=== PATIENT | male | born 1985 | race Caucasian/White ===

== ENCOUNTER 2024-11-03 08:23 | Outpatient (AMB) | payer OTHER, SELFPAY ==
--- OUTSIDE RECORDS SUMMARY | 2024-11-03 08:28 | XMS_ITS | Referral Summary ---
Author Organization [facility] Address [address] [place] [address] Phone Care Team Providers Care Crm Specialist Name Role Phone Janessa Waters MD Unavailable Social History Tobacco Use Types Packs/Day Years Used Date Smoking Tobacco: Never Assessed Sex and Gender Information Value Date Recorded Sex Assigned at Male 10/11/2024 3:43 PM EDT Legal Sex Male 12:30 PM EDT Gender Identity Male 10/11/2024 3:43 PM EDT Sexual Orientation Straight 10/11/2024 3: 43 PM EDT Plan of Treatment Upcoming Encounters Date Type Department Care Team (Late st Contact Info) Description 01/19/2025 1:00 PM EDT Office Visit Division of Vascular and Endovascular Surgery [address] [facility] [address] [place] [phone] Javid Jerome MD [address] [place] [address] Care Teams Crm Specialist Relationship Specialty Start Date End Date Janessa Waters MD [address] [place] [phone] PCP - Insurance 08/10/24
--- NOTE | 2024-11-03 13:13 | MHC.OFFVISWM ---
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* Observation Assistant Required: Yes Observation Assistant Services: Observation Assistant Present Information Interpreted: clinical only Allergies No Known Allergies Allergy (Verified 11/03/24 13:14) Medication List - Last Reconciled 11/03/24 by Papi Vences MD aspirin (Adult Aspirin Regimen) 81 mg PO DAILY irbesartan 300 mg PO DAILY HPI HPI [facility] *THERAPEUTIC SUPPORT STAFF*: Details: Start time: 1pm, End time: 2pm ?I spent 55 minutes speaking with the patient on the phone plus an additional 5 minutes reviewing and updating records for a total of 60 minutes HPI Comments Details: Previous weight loss efforts: Self diets and exercise Wakes up/Sleeps: 1.30am to 7am-9am Breakfast: 11am (eggs) Lunch: 5pm (beef with rice) Dinner: 12am (ham or eggs) Snacks: Croissant occasionally at 2pm Exercise: no home equipment, Gym membership Beverages: Coffee (1-2 cup/d), prepackaged tea: a few times per week, Soda: rarely, Juice: self made juice from watermelon, ETOH: 3 beers per week PFSH Medical History (Updated 11/03/24 @ 13:18 by Papi Vences MD) DJD (degenerative joint disease) Hypertension Morbid obesity Surgical History (Updated 08/25/24 @ 14:28 by Val Gerber CMA) No history of previous surgery Family History (Updated 08/25/24 @ 14:31 by Val Gerber CMA) Mother Diabetes Hypertension Colon cancer Father Hypertension Social History (Updated 08/25/24 @ 14:30 by Val Gerber CMA) Alcohol intake: current Alcohol intake frequency: holidays/special occasions only Patient Tobacco Use Status: Former Tobacco user Telehealth Telehealth Telehealth Platform: Telephone Location of provider rendering services: practice address Location of patient: address on file Patient Identification confirmed using: Name, : Yes Telehealth method: voice only Patient verbally consented to treatment: Yes Patient verbally consented to billing insurance company: Yes Patient informed of any privacy concerns related to visit: Yes Minutes spent on Phone/Video with Pt.: 60 Assessment & Plan Assessment & Plan (1) Morbid obesity: Code(s): E66.01 - Morbid (severe) obesity due to excess calories Category: Medical Plan: 1.? Plan for lap sleeve gastrectomy. If diaphragmatic or ventral hernias are present at time of surgery, these will be repaired laparoscopically as well. I emphasized the importance of close follow-up, adherence to instructions and good communication. The surgery does not replace the need to change your lifestlyle which is the cause of the obesity problem. The surgery provides the motivation to try again to change your lifestyle, it reduces the appetite and make the transition to a better lifestyle easier and doubles the amount of weight you would lose compared to doing the lifestyle change without the surgery. You will need to be on a liquid diet with protein shakes for 2 weeks before surgery to maximize weight loss and boost your nutritional status to recover better from surgery and also for the first two weeks after surgery to let the stomach heal before we introduce other foods. After the first 2 weeks we will introduce protein bars and soft foods like scrambled eggs, cottage cheese and yogurt and after the 6th week will introduce meat, fish and cooked vegetables in small amounts. Over time you should be able to eat everything in small amounts. Side effects like nausea, vomiting, heartburn or abdominal pain are not common in the practice unless you are not following in the practice. This operation requires lifetime commitment to following in our practice and communication with me. You will much less weight and experience side effects if you don?t communicate or not following in the practice. Complications are rare and in our practice is about 1/10 of the national average. However, you can develop bleeding that may require transfusion (hasn?t happened for year in the practice), you may from complications (we did not have any deaths in the practice) and infections. Infections are usually a result of breakdown in communication or not understanding or following directions correctly. They are difficult to treat, they can happen during the first 6 weeks, they may require to be in the hospital for weeks or even months, not being able to eat by mouth and you may have drains and surgeries to try and correct the issue. Other risks and complications include possible conversion to an open procedure, leaks, small bowel obstruction, blood clots, cardiac, or pulmonary complications, as dentistry professor complications such as ulcers, insufficient weight loss and vitamin deficiencies. 2.?Nutritional counseling. Start with one premade PREMIER protein (buy at [employer] or [employer]) shake (8oz of Premier NOT the whole bottle) at 9am-11am, one protein bar (Fit Crunch protein bar, buy at [employer], or [employer]) at 11am-1pm, another premade PREMIER protein shake (8oz of Premier and NOT the entire bottle) at 2pm-4pm, dinner at 5pm (10 forks of protein and 10 forks of salad/vegetables), another Fit Crunch protein bar at 7pm-9pm, another [employer] protein bar at 10pm to midnight. So you do 2 protein shakes, 3 protein bars and one meal per day. Meal to include lean meat (beef, fish, pork, turkey, chicken), or kazakh yogurt, or egg whites, or beans with a salad with olive oil and fruits (berries, pears, apples, kiwi). Avoid salt, breads, potatoes, rice, pasta, desserts. 3. Each shake would be drunk slowly, like coffee in a period of 2 hours. 4. Cut each bar in 4 pieces and eat each piece in 30min ?to make each bar last 2 hours. 5. I emphasized the importance of measuring accurately the food portion and measure it when serving the food in plate 6. The meal portions include 10 full-size forks of meat and 10 full-size forks of salad. You always eat the meat portion but you can replace up to 5 forks for salad/vegetables with rice, potatoes or pasta, or a fruit ?if you like. The less you do it the better weight loss will be. 7. One full-size fork is what it can be scooped on the fork without falling aside and not what can be bit with the fork. Use regular forks like those you find in a typical restaurant. 8.? Please buy the body composition scale we discussed and send me weight measurements as soon as possible and then once a week. Always include your diet and exercise plan. 9. Start treadmill with an incline of 0.0 and speed of 3.0. Increase incline by 1 every 3 min to a max incline of 6.0, stay 3min at 6.0 and then return to 0.0 and repeat same steps until calorie goal is met. Goal is to burn 2000 calories per week on exercise, which means either 300 calories daily, or 400 calories 5 days per week, or 500 calories 4 days per week, or 650 calories 3 days per week. 10. Alternatively start stationary bike at a resistance level of 0.0 Increase level by 1.0 every 3 min to a max level of 6.0. Stay at this level for 3 min and then return to level 0.0 and repeat same steps until 300 calories are burned. Velocity target is 12mph and heart rate is 145 bpm. Goal is to burn 2000 calories per week on exercise 11. The best choice would be to purchase a stationary bike, elliptical or treadmill at home that can track calories. Let me know if you do so I can give you an exercise plan. 12. Goal is to lose at least 1.5-2lbs per week 13. Goal to lose 10% of your weight before surgery, which is about 30lbs. Ultimate weight goal: 284lbs before surgery 14. Please follow the diet plan exactly without any change. If you don't like something about the plan or you feel hungry you need to communicate with me so I can help you revise the plan. You should not change the plan yourself 15. To be scheduled for EGD to assess the stomach's anatomy. The possibility of biopsies was discussed. Patient needs to avoid use of NSAIDs and aspirin for 1 week prior to EGD. You must be on liquids only the day before your endoscopy. Risks of perforation and bleeding was discussed with the patient. This will be an outpatient procedure with IV sedation. Orders: Orders Complete Blood Count Auto Diff Today E66.01 - Morbid (severe) obesity due to excess calories, I10 - Essential (primary) hypertension IRON PROFILE Today E66.01 - Morbid (severe) obesity due to excess calories, I10 - Essential (primary) hypertension TSH reflex Free T4 Today E66.01 - Morbid (severe) obesity due to excess calories, I10 - Essential (primary) hypertension Vitamin D 25-OH Total Today E66.01 - Morbid (severe) obesity due to excess calories, I10 - Essential (primary) hypertension US abdomen comp w elastography Today E66.01 - Morbid (severe) obesity due to excess calories, I10 - Essential (primary) hypertension XR chest 2V Today E66.01 - Morbid (severe) obesity due to excess calories, I10 - Essential (primary) hypertension ECG 12 lead EKG Today E66.01 - Morbid (severe) obesity due to excess calories, I10 - Essential (primary) hypertension Insulin Today E66.01 - Morbid (severe) obesity due to excess calories, I10 - Essential (primary) hypertension Hemoglobin A1c Today E66.01 - Morbid (severe) obesity due to excess calories, I10 - Essential (primary) hypertension H Pylori Breath Test Today E66.01 - Morbid (severe) obesity due to excess calories, I10 - Essential (primary) hypertension Lipid Panel Today E66.01 - Morbid (severe) obesity due to excess calories, I10 - Essential (primary) hypertension Comprehensive Met. Panel Today E66.01 - Morbid (severe) obesity due to excess calories, I10 - Essential (primary) hypertension Vitamin B12 and Folate Today E66.01 - Morbid (severe) obesity due to excess calories, I10 - Essential (primary) hypertension Zinc Today E66.01 - Morbid (severe) obesity due to excess calories, I10 - Essential (primary) hypertension C Reactive Protein Today E66.01 - Morbid (severe) obesity due to excess calories, I10 - Essential (primary) hypertension Vitamin B1 Today E66.01 - Morbid (severe) obesity due to excess calories, I10 - Essential (primary) hypertension Vitamin A Today E66.01 - Morbid (severe) obesity due to excess calories, I10 - Essential (primary) hypertension Ferritin Today E66.01 - Morbid (severe) obesity due to excess calories, I10 - Essential (primary) hypertension FL upper GI w air Today E66.01 - Morbid (severe) obesity due to excess calories, I10 - Essential (primary) hypertension Referrals Behavioral Health Referral E66.01 - Morbid (severe) obesity due to excess calories, I10 - Essential (primary) hypertension Nutrition/Dietitian Referral E66.01 - Morbid (severe) obesity due to excess calories, I10 - Essential (primary) hypertension
[2024-11-03 13:38] VITALS: BMI 47.7
== END 2024-11-03 14:00 | disposition home or self-care (01) ==
LOC: HO.HBS 08:23
PROVIDERS: Visit Provider Surgery
DX: E66.01 Morbid (severe) obesity due to excess calories (principal); Z68.42 Body mass index [BMI] 45.0-49.9, adult
CPT/HCPCS: 98011

== ENCOUNTER 2024-11-12 09:50 | Day surgery (SDC) | payer OTHER, SELFPAY ==
--- NOTE | 2024-11-11 12:30 | HO.ANESPROP2 ---
Documented by User: Marycarmen Guzmán NP 11/11/24 12:31 HPI - Anesthesia Eval Consult details Narrative: 39yo M for Upper Endoscopy [facility] Active Problems Active Problems: All Active Problems DJD (degenerative joint disease) (Acute) Hypertension (Acute) Morbid obesity (Acute) Past Medical History Medical History DJD (degenerative joint disease) Hypertension Morbid obesity Family History Family History (Updated 08/25/24 @ 14:31 by Val Gerber CMA) Mother Diabetes Hypertension Colon cancer Father Hypertension Surgical History Surgical History No history of previous surgery Social History Social History (Updated 08/25/24 @ 14:30 by Val Gerber CMA) Are you a primary healthcare associate to a significant other at home: No Do you presently have visiting nurse or other home services: No Alcohol intake: current Alcohol intake frequency: holidays/special occasions only Patient Tobacco Use Status: Current everyday Tobacco user Tobacco use type: Cigarette Cigarettes Per Day: 2 Use of substances other than those prescribed or required for medical reasons: No Have you been hit, kicked, punched, or otherwise hurt by someone within the past year? If so, by whom?: No Are you DNR?: No Advance Directives: No Advance Directives Information Provided: Yes Poor oral hygiene: No Meds Allergies Allergy/AdvReac Type Severity Reaction Status Date / Time No Known Allergies Allergy Verified 11/12/24 10:29 Home Medications ?Medication ?Instructions ?Recorded ?Confirmed ?Last Taken ?Type aspirin 81 mg tablet,delayed 81 mg PO DAILY 08/25/24 11/12/24 11/04/24 History release (Adult Aspirin Regimen) irbesartan 300 mg tablet 300 mg PO DAILY 08/25/24 11/12/24 Unknown History Assessment and Plan Assessment Anesthesia Assessment: Chart Reviewed Documented by User: Eric Hays MD 11/12/24 11:17 [facility] Past Medical History Medical History DJD (degenerative joint disease) Hypertension Morbid obesity Family History Family History (Updated 08/25/24 @ 14:31 by Val Gerber CMA) Mother Diabetes Hypertension Colon cancer Father Hypertension Family history of problems with anesthesia: No Surgical History Surgical History No history of previous surgery History of Problems with Anesthesia: No Social History Social History (Updated 08/25/24 @ 14:30 by Val Gerber CMA) Are you a primary healthcare associate to a significant other at home: No Do you presently have visiting nurse or other home services: No Alcohol intake: current Alcohol intake frequency: holidays/special occasions only Patient Tobacco Use Status: Current everyday Tobacco user Tobacco use type: Cigarette Cigarettes Per Day: 2 Use of substances other than those prescribed or required for medical reasons: No Have you been hit, kicked, punched, or otherwise hurt by someone within the past year? If so, by whom?: No Are you DNR?: No Advance Directives: No Advance Directives Information Provided: Yes Poor oral hygiene: No Meds Allergies Allergy/AdvReac Type Severity Reaction Status Date / Time No Known Allergies Allergy Verified 11/12/24 10:29 Home Medications ?Medication ?Instructions ?Recorded ?Confirmed ?Last Taken ?Type aspirin 81 mg tablet,delayed 81 mg PO DAILY 08/25/24 11/12/24 11/04/24 History release (Adult Aspirin Regimen) irbesartan 300 mg tablet 300 mg PO DAILY 08/25/24 11/12/24 Unknown History Exam Airway Mallampati Class: IV TM Dist: >3cm Neck ROM: Full Assessment and Plan Assessment Anesthesia Assessment: Anesthesia Plan Discussed Final Anesthetic Review Family History of Problems with Anesthesia: No History of Problems with Anesthesia: No NPO: Yes ASA Class: III Final Preanesthetic Review: No Changes in Pt Med Stat, Meds/Allgs Chart Reviewed, Consent Obtained/Reviewed and Anes Risks/Benef Reviewed Patient Risk: Intermediate Procedure Risk: Low Anesthetic Plan Anesthetic Plan: TIVA Disposition: Standard PACU
--- OUTSIDE RECORDS SUMMARY | 2024-11-11 13:18 | XMS_ITS | Referral Summary ---
Author Organization [facility] Address [address] [place] [address] Phone Care Team Providers Care Continuous Churn Buttermaker Name Role Phone Janessa Waters MD Unavailable [...] Vascular and Endovascular Surgery [address] [facility] [address] [place] [phone] Javid Jerome MD [address] [place] [address] Care Teams Continuous Churn Buttermaker Relationship Specialty Start Date End Date Janessa Waters MD [address] [place] [phone] PCP - Insurance 08/10/24
--- OUTSIDE RECORDS SUMMARY | 2024-11-11 13:19 | XMS_ITS | Clinical Summary ---
Author Organization [facility] Address [address] [place] [address] Care Team Providers Care Sales Representatives Name Role Phone [facility], John trujillo Care Provider Allergies No known active allergies Medications doxycycline hyclate (VIBRAMYCIN) 100 mg capsule Take 1 capsule (100 mg total) by mouth 2 times a day. 20 capsule 11/13/2023 Active Encounters Date Type Department Care Team Description 09/30/2024 11:19 AM EDT - 09/30/2024 11:59 PM EDT Hospital Encounter [facility] [address] [place] [address] Pain in joint of right knee Discharge Disposition: Home or Self Care (01) from Last 3 Months Social History Tobacco Use Types Packs/Day Years Used Date Smoking Tobacco: Former Cigarettes Tobacco Cessation:Counseling Given: Not Answered Alcohol Use Standard Drinks/Week Comments Not Currently 0 (1 standard drink = 0.6 oz pur e alcohol) Sex and Gender Information Value Date Recorded Sex Assigned at Male 12/02/2023 8:47 AM EDT Legal Sex Male 1:33 PM EST Gender Identity Not on file Sexual Orientation Not on file Last Filed Vital Signs Vital Sign Reading Time Taken Comments Blood Pressure 130/81 12/02/2023 8:53 AM EDT Pulse 88 11/13/2023 12:32 AM EDT Temperature 38.2 C (100.8 F) 11/12/2023 6:34 PM EDT Respiratory Rate 20 11/13/2023 12:32 AM EDT Oxygen Saturation 99% 11/13/2023 12:32 AM EDT Inhaled Oxygen Concentration - - Weight 134 kg (295 lb 6.7 oz) 12/02/2023 8:53 AM EDT Height 174 cm (5' 8.5 ) 12/02/2023 8:53 AM EDT Body Mass Index 44.26 12/02/2023 8:53 AM EDT Plan of Treatment Health Maintenance Due Date Last Done Comments HIV Screening 1986 Hepatitis C Screening 1986 Varicella Vaccines (1 of 2 - 13+ 2-dose series) 08/29/1999 Alcohol/Substance Use Screening 03/31/2024 Depression Screening and Follow-Up 03/31/2024 Social Drivers of Health Annual Screening 03/31/2024 Hepatitis B Vaccines (3 of 3 - 19+ 3-dose series) 04/25/2024 11/21/2023, 10/24/2023 Basic Metabolic Panel 11/12/2024 11/13/2023 Influenza Vaccine (#1) 2024 02/03/2024 DTaP,Tdap,and Td Vaccines (2 - Td or Tdap) 02/02/2034 02/03/2024 RSV Vaccine (60+ years old and patients) (1 - 1-dose 75+ series) 2061 Abdominal Aortic Aneurysm (AAA) Screening Completed 11/13/2023 COVID-19 Vaccine Completed 02/03/2024 Pneumococcal Vaccine: Pediatric (0-5 Years) and At-Risk Patients (6-50 Years) Aged Out No longer eligible based on patient's age to complete this topic Procedures * Due to [place] [employer] law, this organization might not be sharing negative HIV tests. Procedure Name Priority Date/Time Associated Diagnosis Comments XR KNEE 3 VW RIGHT Routine 09/30/2024 11 :35 AM EDT Pain in joint of right knee CT ABDOMEN PELVIS W CONTRAST STAT 11/13/2023 1:38 AM EDT BASIC METABOLIC PANEL STAT 11/13/2023 1:21 AM EDT from Last 3 Months or Most Recently Relevant to Health Maintenance Results * Due to [place] [employer] law, this organization might not be sharing negative HIV tests. * XR Knee 3 vw Right (09/30/2024 11:35 AM EDT) Anatomical Region Laterality Modality Lower Extremities, Knee Right Computed Radiography 09/30/2024 1:15 PM EDT Impressions 09/30/2024 4:36 PM EDT Early osteoarthritic changes with no acute fractures or dislocations.. Uziel Ibrahim, have reviewed the examination and concur with the findings as reported or so edited. Trainee: Edilberto Chase If this radiology report contains a blank impression section, it is an incomplete radiology report. Please contact the interpreting radiologist or applicable radiology division as soon as possible to obtain the completed interpretation. Workstation ID: [id number] Narrative 09/30/2024 4:36 PM EDT EXAMINATION: Right knee x-ray. TECHNIQUE: 3 view right knee x-ray. COMPARISON: None. CLINICAL INFORMATION: Right knee pain. FINDINGS: Mild tricompartmental joint space narrowing and evidence of osteoarthritis. No acute fractures or dislocations. No effusions or soft tissue swelling.. Resulting Agency Comment [id number] Procedure Note Uziel Medina MD - 09/30/2024 EXAMINATION: Right knee x-ray. TECHNIQUE: 3 view right knee x-ray. COMPARISON: None. CLINICAL INFORMATION: Right knee pain. FINDINGS: Mild tricompartmental joint space narrowing and evidence ofosteoarthritis. No acute fractures or dislocations. No effusions or softtissue swelling.. IMPRESSION: Early osteoarthritic changes with no acute fractures or dislocations.. Uziel Ibrahim, have reviewed the examination and concur with thefindings as reported or so edited. Trainee: Edilberto Chase If this radiology report contains a blank impression section, it is anincomplete radiology report. Please contact the interpreting radiologistor applicable radiology division as soon as possible to obtain thecompleted interpretation. Workstation ID: [id number] Janes Guillory NP IMG XR PROCEDURES Final Result * CT Abdomen Pelvis with Contrast (11/13/2023 1:38 AM EDT) Anatomical Region Laterality Modality Body Computed Tomogra phy 11/13/2023 1:55 AM EDT Impressions 11/13/2023 2:19 AM EDT 1. No acute abnormality in the abdomen and pelvis. 2. Left nephrolithiasis without hydronephrosis. 3. Cholelithiasis without evidence of acute cholecystitis. I, Dwayne De La Vega, have reviewed the examination and concur with the findings as reported or so edited. Trainee: Jeremy Prince If this radiology report contains a blank impression section, it is an incomplete radiology report. Please contact the interpreting radiologist or applicable radiology division as soon as possible to obtain the completed interpretation. Workstation ID: [id number] Up-to-date CT equipment and radiation dose reduction techniques were employed. CTDIvol: 20.8 mGy. DLP: 1116 mGy-cm. Narrative 11/13/2023 2:19 AM EDT COMPARISON: None available. FINDINGS: LOWER THORAX: Punctate calcified granuloma at the right lower lung (series 900, image 2). HEPATOBILIARY: No focal hepatic lesions. Patent portal and hepatic veins. Gallstone without gallbladder wall thickening or pericholecystic fat stranding. No biliary ductal dilatation. SPLEEN: No splenomegaly. PANCREAS: No focal masses or ductal dilatation. ADRENAL GLANDS: No adrenal nodules. KIDNEYS/URETERS: No hydronephrosis, calculi, or solid mass lesions. Nonobstructing calyceal stone at the lower pole of left kidney measuring 4 mm. GI TRACT: No distention or wall thickening. The appendix is normal. PERITONEUM/RETROPERITONEUM: No ascites or free air. LYMPH NODES: No lymphadenopathy. VESSELS: Unremarkable. PELVIC ORGANS/BLADDER: Unremarkable. BONES AND SOFT TISSUES: No acute osseous abnormality. Small fat-containing umbilical hernia. Resulting Agency Comment [id number] Procedure Note Stan De La Vegaang AnitaKitty, DO - 11/13/2023 COMPARISON: None available. FINDINGS: LOWER THORAX: Punctate calcified granuloma at the right lower lung ([id number], image 2). HEPATOBILIARY: No focal hepatic lesions. Patent portal and hepatic veins.Gallstone without gallbladder wall thickening or pericholecystic fatstranding. No biliary ductal dilatation. SPLEEN: No splenomegaly. PANCREAS: No focal masses or ductal dilatation. ADRENAL GLANDS: No adrenal nodules. KIDNEYS/URETERS: No hydronephrosis, calculi, or solid mass lesions.Nonobstructing calyceal stone at the lower pole of left kidney measuring 4mm. GI TRACT: No distention or wall thickening. The appendix is normal. PERITONEUM/RETROPERITONEUM: No ascites or free air. LYMPH NODES: No lymphadenopathy. VESSELS: Unremarkable. PELVIC ORGANS/BLADDER: Unremarkable. BONES AND SOFT TISSUES: No acute osseous abnormality. Small fat- containingumbilical hernia. IMPRESSION: 1. No acute abnormality in the abdomen and pelvis. 2. Left nephrolithiasis without hydronephrosis. 3. Cholelithiasis without evidence of acute cholecystitis. I, Dwayne De La Vega, have reviewed the examination and concur with thefindings as reported or so edited. Trainee: Jeremy Prince If this radiology report contains a blank impression section, it is anincomplete radiology report. Please contact the interpreting radiologistor applicable radiology division as soon as possible to obtain thecompleted interpretation. Workstation ID: [id number] Up-to-date CT equipment and radiation dose reduction techniques wereemployed. CTDIvol: 20.8 mGy. DLP: 1116 mGy-cm. Juan Matson MD IMG CT PROCEDURES Final Re sult * (ABNORMAL) BMP - Basic Metabolic Panel (11/13/2023 1:21 AM EDT) NA 141 135 - 145 mmol/L 11/13/2023 2:00 AM EDT [facility] K 4.5 3.5 - 5.3 mmol/L 11/13/2023 2:00 AM EDT [facility] Cl 105 98 - 107 mmol/L 11/13/2023 2:00 AM EDT [facility] CO2 24 24 - 32 mmol/L 11/13/2023 2:00 AM EDT [facility] BUN 11 7 - 23 mg/dL 11/13/2023 2:00 AM EDT [facility] Creatinine 0.73 0.60 - 1.30 mg/dL 11/13/2023 2:00 AM EDT [facility] Glucose 109(H) 65 - 99 mg/dL 11/13/2023 2:00 AM EDT [facility] Calcium 9.6 8.6 - 10.5 mg/dL 11/13/2023 2:00 AM EDT [facility] Anion Gap 12 5 - 15 11/13/2023 2:00 AM EDT [facility] eGFR >90 >=60 mL/min/1. 73m2 11/13/2023 2:00 AM EDT [facility] Comment:The estimated glomer ular filtration rate (eGFR) is calculated using a new formula developed by the NKF-ASN task force to eliminate race-based correction factors. The new formula uses serum/plasma creatinine, age, and gender to determine eGFR. A value below 60mls/min might indicate kidney disease and will be flagged. For additional information, see Raphael et al, Am J Kidney Dis. 2021;79(2):268- 288, A Unifying Approach for GFR estimation: Recommendations of the NKF-ASN Task Force on Reassessing the Inclusion of Race in Diagnosing Kidney Disease . Blood Structure of peripheral vein / Unknown Venipuncture / Unknown 11/13/2023 1:21 AM EDT 11/13/2023 1:27 AM EDT us Juan Matson MD LAB BLOOD ORDERABLES Final Result [facility] [address] [place] [address], from Last 3 Months or Most Recently Relevant to Health [place] [address] [place] [address] Care Teams Sales Representatives Relationship Specialty Start Date End Date [facility], John Marcano [address] [place] [address] PCP - General 08/21/23
[2024-11-12 10:35] VITALS: BP 162/93; PULSE 70; RESP 18; TEMP 36.7; O2SAT 99; BMI 45.9
[2024-11-12] MEDS: Lactated Ringers 1,000 ML 100 ML IVCONT (10:46)
--- NOTE | 2024-11-12 11:14 | MHC.SHP ---
Pre-Procedural Eval Section A - 24 Hr Update-Section A only Date of Service: 11/12/24 The patient is an INPATIENT: No The patient has been examined within 24 hours of the surgical procedure. The History & Physical has been completed within 30 days and I have reviewed it.: No Section B - Complete if H&P > 30 days Chief Complaint: Morbid (severe) obesity due to excess calories Relevant Family History (Specify if Yes): No Relevant Social History: None Present Medications: None Medical History: No relevant PMH History of Previous Operations: No relevant previous surgery Allergies: Allergies Allergy/AdvReac Type Severity Reaction Status Date / Time No Known Allergies Allergy Verified 11/12/24 10:29 Review of Systems Sugical H&P ROS: Negative: Constitution, Cardiovascular, Respiratory, Neurological, Psychiatric, Hem-Onc, Allergic/Immunologic, Gastrointestinal, Genitourinary, Musculoskeletal, Integumentary, Endocrine and Eyes/Ears/Nose/Throat Exam Surgical H&P Exam: Normal: HEENT, Normal: Heart, Normal: Lungs, Normal: Extremities, Normal: Abdomen, Normal: Skin and Normal: Neurological Plan Diagnosis/Plan: Unchanged (EGD to assess the stomach's anatomy. Risks of bleeding and perforation were discussed with the patient and he is in agreement with the plan.) I have reviewed the history and physical and performed a pertinent physical examination on my patient. No changes have occurred unless specified. Time Spent With Patient Time: Total time managing care of this patient today ____ minutes.
--- NOTE | 2024-11-12 11:15 | P.BOP_ITS ---
Brief Operative Note Date of Service: 11/12/24 Pre-op diagnosis: Morbid obesity Post-op diagnosis: same Procedure: PROCEDURE DATE: 11/12/2024 PREOPERATIVE DIAGNOSIS: Morbid obesity POSTOPERATIVE DIAGNOSIS: ?Same as above. 1) small diaphragmatic hernia, 2) esophagitis, 3) gastritis PROCEDURE: [id number] with biopsies Surgeon: ?Joon Vences M.D.. Ph.D. Funeral Prearrangement Counselor: None ? Anesthesia: IV sedation Estimated blood loss: ?Minimal FINDINGS AND PROCEDURE: ? OPERATIVE INDICATIONS: ?The patient is a 39 year old male known to me who is interested in bariatric surgery. Based on this information I recommended an upper endoscopy to evaluate the patient's symptoms. Risks and complications of the surgery were discussed with the patient in advance particularly the possibility of perforation or bleeding that may require surgical intervention. The patient understood the risks and was in agreement with the plan. ? PROCEDURE: After informed consent was obtained by the patient, the patient was ?transferred to the Operating Room and was placed in the supine position.? After successful induction of IV sedation, a mouth block was inserted and the patient was placed in the left lateral decubitus position. An upper endoscopy was performed next, the oropharynx and esophagus appeared within the normal limits. There was a small 2cm hiatal hernia. The z-line was irregular with tongues of gastric mucosa protruding into the esophagus. Two biopsies were obtained from the distal esophagus 2-3 cm proximal to the GE junction and two additional biopsies from the GE junction. The stomach was ent ered and it appeared to be of normal size. There was mild gastritis throughout the stomach. There was no stricture or ulcer. A biopsy was obtained from the gastric fundus and the antrum. No significant bleeding was noted from any of the biopsy sites. Retroflexion of the scope confirmed the presence of a small diaphragmatic hernia. The scope was then advanced into the duodenum which appeared to be normal as well. At that point the duodenum ?and the stomach were decompressed and the scope was withdrawn from the patient's mouth. The patient extubated and was transferred in stable condition to the Recovery Room for further care. I was present and performed all steps of the procedure. There were no residents to assist with this case. Joon Vences M.D., Ph.D. Surgeon: Papi Vences MD Anesthesia: MAC Was an Funeral Prearrangement Counselor used for this Procedure?: No Estimated blood loss (mL): 0 IV fluids (mL): 400 Urine output (mL): 0 (No Love to record output) Pathology: other (1) antrum x1, 2) fundus x1, 3) GE junction x2, 4) distal esophagus x2) Condition: stable Disposition: PACU
[2024-11-12 11:54] VITALS: BP 124/74; PULSE 96; RESP 17; TEMP 36.9; O2SAT 95
[2024-11-12 12:11] VITALS: BP 126/71; PULSE 74; RESP 19; TEMP 36.5; O2SAT 95
== END 2024-11-12 12:36 | disposition home or self-care (01) ==
PROVIDERS: PCP Family Medicine; Visit Provider Surgery
PROC: 0DJ08ZZ Inspection of Upper Intestinal Tract, Via Natural or Artificial Opening Endoscopic (ICD-10-PCS; CPT 43235; principal; 2024-11-12 11:10)
DX: E66.01 Morbid (severe) obesity due to excess calories (principal); Z68.42 Body mass index [BMI] 45.0-49.9, adult; K29.50 Unspecified chronic gastritis without bleeding; K20.80 Other esophagitis without bleeding; K44.9 Diaphragmatic hernia without obstruction or gangrene; I10 Essential (primary) hypertension; M19.90 Unspecified osteoarthritis, unspecified site; Z79.82 Long term (current) use of aspirin; Z79.899 Other long term (current) drug therapy; Z87.891 Personal history of nicotine dependence
CPT/HCPCS: 43239; 88305; 88313; 88342; J2003; J2704

== ENCOUNTER → 2024-11-12 09:50 | Outpatient (BNV) | payer OTHER, SELFPAY | PROVIDERS: Visit Provider Surgery | DX: K20.90 Esophagitis, unspecified without bleeding (principal); K29.70 Gastritis, unspecified, without bleeding | CPT/HCPCS: 43239 ==

== ENCOUNTER 2024-11-23 08:14 | Outpatient (REF) | payer OTHER, SELFPAY ==
--- OUTSIDE RECORDS SUMMARY | 2024-11-18 06:00 | XMS_ITS | Continuity of Care Document ---
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 Name Role Phone Services, Enabling Unavailable Unavailable Khadijah Goodman Unavailable Unavailable Allergies, Adverse Reactions, Alerts Substance Reaction Status Criticality No Known Allergies Active No Inform ation Medications Medication Instructions Dosage Effective Dates (start - stop) Status Comments diclofenac 1 % topical gel apply 2 gram by topical route 4 times every day to the affected area(s) for pain 2.00 gram - Active irbesartan 300 mg tablet take 1 tablet by oral route every day 300 MG - Active Vitamin D3 50 mcg (2,000 unit) capsule take 1 capsule by oral route every day 1 capsule - Active Blood Pressure Cuff apply by Topical route Check BP daily Not Available - Active Procedures Procedure Date MED NUTRITION, INDIV, SUBSEQ HEAD OF STORE OPERATIONS OFFICE/OUTPATIENT VISIT, EST IMMUNIZATION ADMIN HEP B VACCINE, ADULT, IM PREV VISIT, EST, AGE 18-39 Left W/O Being Seen Left W/O Being Seen MED NUTRITION, INDIV, SUBSEQ MED NUTRITION, INDIV, SUBSEQ OFFICE/OUTPATIENT VISIT, EST IMMUNIZATION ADMIN FLU VACCINE NO PRESERV 3 & > TDAP VACCINE >7 IM Spikevax 12+ XBB, CVX code 312 24 COVID 19 Vaccine Administration 024 IMMUNIZATION ADMIN, EACH ADD MEDICAL NUTRITION, INDIV, IN Nurse Assesment OFFICE/OUTPATIENT VISIT, EST IMMUNIZATION ADMIN HEP B VACCINE, ADULT, IM Immunization Only No E/M Required IMMUNIZATION ADMIN HEP B VACCINE, ADULT, IM Immunization Only No E/M Required OFFICE/OUTPATIENT VISIT, EST HEAD OF STORE OPERATIONS OFFICE/OUTPATIENT VISIT, EST ELECTROCARDIOGRAM, COMPLETE OFFICE/OUTPATIENT VISIT, EST OFFICE/OUTPATIENT VISIT, EST MEDICAL SERVICES AFTER HRS OFFICE/OUTPATIENT VISIT, NEW MEDICAL SERVICES AFTER HRS Advance Directives Directive Yes / No Effective Date File Name No Information Encounters Encounter Description Practice Location Reason(s) For Visit Diagnoses Date Provider Providers Copied on Encounter [facility], [address] [facility] [address], [place], [place], [id number], tel:[phone] Enabling Services No Information Services Enabling. [address] [place], [address]. tel:[phone] Consulting Provider: Khadijah Goodman. [facility], [address] [facility] [address], [place], [place], [id number], [place] tel:[phone] [facility] Pain in right knee 5 Pastora Marrero. [address] [place], [address], [place]. tel:[phone] [facility], [address] [facility] [address], [place], [place], [id number], [place] tel:[phone] [facility] obesity (chief complaint)pr e dm (chief complaint) PrediabetesM orbid (severe) obesity due to excess caloriesFatt y liver disease, nonalcoholic Body mass index (BMI) 45.0-49.9, adult 5 Jordy Mahmood. [address] [place], [place], [id number]. 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 . Consulting Provider: Donn Pollock, [address] [place], [address]. tel:[phone] OFFICE/OUTPA TIENT VISIT, EST [facility], [address] [place] [address] 2,Suite [facility], [place], [place], [id number], [place] tel:[phone] [facility] NPP (chief complaint) Pain, joint, knee, rightUrine malodorSympt omatic varicose veins of both lower extremitiesO besity Class 3Fatty liver disease, nonalcoholic Morbid (severe) obesity due to excess caloriesBody mass index (BMI) 45.0-49.9, adult 5 Pastora Marrero. [address] [place], [address], [place]. tel:[phone] [facility], [address] [place] [address] 2,[address], [place], [place], [id number], [place] tel:[phone] [facility] Fatty liver disease, nonalcoholic 5 Yamile Loera. [address] [place], [place], [id number], [place]. tel:[phone] PREV VISIT, EST, AGE 18-39 [facility], [address] [place] [address] [address], [place], [id number], [place] tel:[phone] [facility] APE (chief complaint) Encounter for general adult medical examination without abnormal findingsEsse ntial (primary) hypertension PrediabetesF atty liver disease, nonalcoholic Symptomatic varicose veins of both lower extremitiesR outine screening for STI (sexually transmitted infection)Ob esity Class 3Body mass index (BMI) 45.0-49.9, adultFormer smokerFamily hx of colon cancerEncoun ter for immunization 5 Yamile Loera. [address] [place], [place], [id number], [place]. tel:[phone] [facility], [address] [facility] [address], [place], [place], [id number], [place] tel:[phone] [facility] Proc/trtmt not crd out d/t pt lv bef seen by [facility] 5 Jordy Mahmood. [address] [place] [address], [id number]. tel:[phone] [facility], [address] [facility] [address], [place], [place], [id number], [place] tel:[phone] [facility] Proc/trtmt not crd out d/t pt lv bef seen by [facility] 5 Ciara Mike. [address] [place], [place], [id number], [place]. tel:[phone] [facility], [address] [facility] [address], [place], [place], [id number], [place] tel:[phone] [facility] obesity (chief complaint) PrediabetesE ssential (primary) hypertension Fatty liver disease, nonalcoholic Obesity Class 3Body mass index (BMI) 40.0-44.9, adult 5 Jordy Mahmood. [address] [place] [address], [id number]. tel:[phone] [facility], [address] [facility] [address], [place], [id number], [place] tel:[phone] [facility] hypertension (chief complaint) Essential (primary) hypertension PrediabetesF atty liver disease, nonalcoholic Obesity Class 3Body mass index (BMI) 40.0-44.9, adult Nov-1 - 4 Spence Ela. [address] [place], [place], [id number]. tel:[phone] OFFICE/OUTPA TIENT VISIT, EST [facility], [address] [facility] [address], [place], [place], [id number], [place] tel:[phone] [facility] f/u meds (chief complaint) Obesity Class 3Essential (primary) hypertension PrediabetesB thomas mass index (BMI) 40.0-44.9, adult Nov-0 4 Papo Stacie. [address] [place] [address], [id number], [place]. tel:[phone] [facility], [address] [facility] [address], [place], [place], [id number], [place] tel:[phone] [facility] Information Oct-3 4 Jrrafi Castro. [address] [place], [place], [id number], [place]. tel:[phone] [facility], [address] [facility] [address], [place], [place], [id number], [place] tel:[phone] [facility] pre dm (chief complaint) Pre-diabetes Essential (primary) hypertension Fatty liver disease, nonalcoholic Obesity Class 3Body mass index (BMI) 40.0-44.9, adult Sep-1 - 4 Jordy Mahmood. [address] [place], [place], [id number]. tel:[phone] [facility], [address] [facility] [address], [place], [place], [id number], [place] tel:[phone] [facility] Med Education (chief complaint) Obesity Class 3Essential (primary) hypertension Sep-0 4 Sania Gómez. [address] [place], [place], [id number], [place]. tel:[phone] OFFICE/OUTPA TIENT VISIT, EST [facility], [address] [facility] [address], [place], [place], [id number], [place] tel:[phone] [facility] chronic conditions (chief complaint) Fatty liver disease, nonalcoholic Asymptomatic cholelithias isVitamin D deficiencyEs sential (primary) hypertension Pre-diabetes Obesity Class 3Body mass index (BMI) 40.0-44.9, adult 4 Jenny Yang. [address] [place] [address], [id number], [place]. tel:[phone] [facility], [address] [facility] [address], [place], [place], [id number], [place] tel:[phone] [facility] Vaccine (chief complaint) Encounter for immunization 4 No Information [facility], [address] [place] [address] 2,[address], [place], [place], [id number], [place] tel:[phone] [facility] Vaccine (chief complaint) Encounter for immunization 4 No Information OFFICE/OUTPA TIENT VISIT, EST [facility], [address] [facility] [address], [place], [place], [id number], [place] tel:[phone] [facility] BP Check (chief complaint) Essential (primary) hypertension 4 No Information [facility], [address] [place] [address] 2,[address], [place], [place], [id number], [place] tel:[phone] [facility] No Information 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 . Consulting Provider: Edilberto Mccall, [address] [facility], [place], [address]. 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 [address] [place] [address], [id number], [place]. tel:[phone] OFFICE/OUTPA TIENT VISIT, [facility], [address] [place] [address] 2,[address], [place], [place], [id number], [place] tel:[phone] [facility] BP F/u (chief complaint) Essential (primary) hypertension Paresthesias Vitamin D deficiencyEl evated liver enzymes 3 [facility]. [address] [place] [address], [id number], [place]. tel:[phone] OFFICE/OUTPA TIENT VISIT, [facility], [address] [place] [address] 2,[address], [place], [place], [id number], tel:[phone] [facility] PI#[id number] (chief complaint)ch moo Bp (chief complaint) Essential (primary) hypertension Paresthesias 3 [facility]. [address] [place] [address], [id number], [place]. tel:[phone] Family History Family Member Type Diagnosis Age At Onset No Information Immunizations Vaccine Date Status Comments Hep B ADULT, 3 dose administered Source: New Immunization Record IIV3 PF administered Source: New Imm unization Record Tdap administered Source: New Imm unization Record Spikevax 12+ KP2 administered Source: New Immunization Record Hep B ADULT, 3 dose administered Source: New Immunization Record Hep B ADULT, 3 dose administered Source: New Immunization Record Payers Payer name Insurance type Covered democrat ID Claribel Koo (s) [facility] [id number] [facility] [id number] Health Safety [facility] [id number] [facility] [id number] Health Safety [facility] [id number] [facility] [id number] [facility] [id number] Social History Type Description Quantity Date Captured Comments Alcohol Use Details Unknown Caffeine Use Details Unknown Tobacco Use Status Smoking Status No Information Sex Male Sexual Orientation Bisexual Chief Complaint And Reason For Visit No Information Reason For Referral Reason For Referral No Information Plan Of Treatment Date Type Action Status Goal Unhealthy drug u se screening. Due on due Goal LDL Cholesterol (Direct). Due on due Goal Document SOGI In formation. Due on due Goal Lipid panel. Due on 027 due Goal Influenza vaccine. Due on due Goal APE. Due on due Goal Hepatitis C Screening. Due o n due Goal Urinalysis. Due on due Goal ECG due Goal Diabetes screening. Due on due Goal Tdap due Goal Unhealthy drug u se screening. Due on due Goal Hepatitis C Screening. Due o n due Goal APE. Due on due Goal Document SOGI In formation. Due on due Goal Lipid panel. Due on 027 due Goal Diabetes screening. Due on due Goal Influenza vaccine. Due on due Goal Tdap due Goal LDL Cholesterol (Direct). Due on due Goal Urinalysis. Due on due Goal ECG due Goal Tdap due Goal Diabetes screening. Due on due Goal Influenza vaccine. Due on due Goal APE. Due on due Goal Hepatitis C Screening. Due o n due Goal Urinalysis. Due on due Goal Document SOGI In formation. Due on due Goal LDL Cholesterol (Direct). Due on due Goal Lipid panel. Due on due Goal Unhealthy drug u se screening. Due on due Goal ECG due Goal Diabetes screening. Due on due Goal Urinalysis. Due on due Goal LDL Cholesterol (Direct). Due on due Goal Hepatitis C Screening. Due o n due Goal Tdap due Goal Influenza vaccine. Due on due Goal APE. Due on due Goal Unhealthy drug u se screening. Due on due Goal Document SOGI In formation. Due on due Goal Lipid panel. Due on due Goal ECG due Goal LDL Cholesterol (Direct). Due on due Goal Unhealthy drug u se screening. Due on due Goal Tdap due Goal Urinalysis. Due on due Goal Lipid panel. Due on due Goal ECG due Goal Hepatitis C Screening. Due o n due Goal Diabetes screening. Due on due Goal Influenza vaccine. Due on No due Goal Document SOGI In formation. Due on due Goal APE. Due on due Goal LDL Cholesterol (Direct). Due on due Goal Lipid panel. Due on due Goal Diabetes screening. Due on due Goal Hepatitis C Screening. Due o n due Goal Tdap due Goal ECG due Goal APE. Due on due Goal Urinalysis. Due on due Goal Unhealthy drug u se screening. Due on due Goal Influenza vaccine. Due on No due Goal Document SOGI In formation. Due on due Goal Tdap due Goal Diabetes Screening. Due on A due Goal APE. Due on due Goal Unhealthy drug u se screening. Due on due Goal Lipid panel. Due on due Goal Document SOGI In formation. Due on due Goal Influenza vaccine. Due on No due Goal Unhealthy drug u se screening. Due on due Goal Lipid panel. Due on due Goal Influenza vaccine. Due on No due Goal Document SOGI In formation. Due on due Goal Tdap due Goal Diabetes Screening. Due on A due Goal APE. Due on due Goal Unhealthy drug u se screening. Due on due Goal Tdap due Goal Lipid panel. Due on due Goal APE. Due on due Goal Document SOGI In formation. Due on due Goal Diabetes Screening. Due on A due Goal Influenza vaccine. Due on No due Goal Diabetes Screening. Due on A due Goal Lipid panel. Due on due Goal Tdap due Goal Document SOGI In formation. Due on due Goal Influenza vaccine. Due on No due Goal APE. Due on due Goal Unhealthy drug u se screening. Due on due Goal APE. Due on due Goal Document SOGI In formation. Due on due Goal Tdap due Goal Lipid panel. Due on due Goal Unhealthy drug u se screening. Due on due Goal Influenza vaccine. Due on No due Goal Diabetes Screening. Due on A due Goal Lipid panel. Due on due Goal Influenza vaccine. Due on No due Goal Tdap. Due on due Goal APE. Due on due Goal Unhealthy drug u se screening. Due on due Goal Document SOGI In formation. Due on due Goal Diabetes Screening. Due on A due Goal Influenza vaccine. Due on due Goal Document SOGI In formation. Due on due Goal Lipid panel. Due on due Goal Td vaccine. Due on due Goal Unhealthy drug u se screening. Due on due Goal Tdap. Due on due Goal Diabetes Screening. Due on A due Goal APE. Due on due Goal Lipid panel. Due on due Goal Document SOGI In formation. Due on due Goal Influenza vaccine. Due on due Goal APE. Due on due Goal Unhealthy drug u se screening. Due on due Goal Tdap. Due on due Goal Diabetes Screening. Due on A due Goal Td vaccine. Due on due Goal Lipid panel. Due on due Goal Document SOGI In formation. Due on due Goal Unhealthy drug u se screening. Due on due Goal Diabetes Screening. Due on A due Goal Influenza vaccine. Due on due Goal APE. Due on due Goal Tdap. Due on due Goal Td vaccine. Due on due Goal APE. Due on due Goal Tdap. Due on due Goal Td vaccine. Due on due Goal Document SOGI In formation. Due on due Goal Lipid panel. Due on due Goal Unhealthy drug u se screening. Due on due Goal Influenza vaccine. Due on due Goal Diabetes Screening. Due on due Goal Lipid panel. Due on due Goal Td vaccine. Due on due Goal Influenza vaccine. Due on due Goal Document SOGI In formation. Due on due Goal Unhealthy drug u se screening. Due on due Goal Tdap. Due on due Goal Diabetes Screening. Due on due Goal APE. Due on due Goal Diabetes Screening. Due on due Goal Influenza vaccine. Due on due Goal Unhealthy drug u se screening. Due on due Goal Lipid panel. Due on due Goal APE. Due on due Goal Td vaccine. Due on due Goal Document SOGI In formation. Due on due Goal Tdap. Due on due Goal Influenza vaccine. Due on due Goal APE. Due on due Goal Document SOGI In formation. Due on due Goal Diabetes Screening. Due on due Goal Tdap. Due on due Goal Unhealthy drug u se screening. Due on due Goal Lipid panel. Due on due Goal Td vaccine. Due on due Goal Document SOGI In formation. Due on due Goal Td vaccine. Due on due Goal Unhealthy drug u se screening. Due on due Goal APE. Due on due Goal Lipid panel. Due on due Goal Tdap. Due on due Goal Influenza vaccine. Due on due Goal Diabetes Screening. Due on due Goal Document SOGI In formation. Due on due Goal Diabetes Screening. Due on S due Goal Unhealthy drug u se screening. Due on due Goal Influenza vaccine. Due on due Goal APE. Due on due Goal Tdap. Due on due Goal Td vaccine. Due on due Goal Diabetes Screening. Due on A due Goal Tdap. Due on due Goal Document SOGI In formation. Due on due Goal Unhealthy drug u se screening. Due on due Goal APE. Due on due Goal Influenza vaccine. Due on due Goal Td vaccine. Due on due Referral Ordered: Physical Therapy (related to Pain, joint, knee, right) ordered Referral Referred To: Physical Therapy Ordered: Referrals: Physical Therapy. Evaluate and treat Appointment date/timeframe: Elective-Pt Discretion ordered Referral Ordered: X-RAY EXAM OF KNEE, 3 VIEWS Appointment date/timeframe: Elective-Pt Discretion ordered Referral Ordered: US ABDOMEN COMPLETE Appointment date/timeframe: Routine <3 Months ordered Referral Ordered: Referrals: Weight Clinic SS. Location: [facility]. Evaluate and treat Appointment date/timeframe: Urgent <3 Weeks ordered Referral Ordered: ECHO, TRANSTHORACIC W/DOPPLER, COMPLETE heart Appointment date/timeframe: 12/02/2023 ordered Referral Ordered: Referrals: Vascular Surgery. Evaluate and treat Appointment date/timeframe: Urgent <3 Weeks ordered Referral Ordered: US ABDOMEN LIMITED liver Appointment date/timeframe: 10/31/2023 ordered Referral Ordered: US ABDOMEN LIMITED Appointment date/timeframe: 04/22/2023 ordered Appointment Adarsh Moody BOOKED Future Order: Lab Order HBsAg Sc reen ([id number]), Sent on: Sent Future Order: Lab Order HCV Anti body RFX to Quant PCR ([id number]), Sent on: Sent Future Order: Lab Order Hep A Ab , Total ([id number]), Sent on: Sent Future Order: Lab Order Hep B Co re Ab, Tot ([id number]), Sent on: Sent Future Order: Lab Order Hep Be Ag ([id number] ), Sent on: Sent Future Order: Lab Order Hep Be Ab ([id number] ), Sent on: Sent History Of Present Illness Encounter Date Complaint History Of Prese nt Illness obesity pre dm NPP 39yo M with PMH pre-DM, MASH, elevated LFTs, elevated BMI, presenting for NPP. Pt of mine, first visit with me. Lang: English Int #[id number] Concerns - R knee pain - varicose veins - would like dental visit Labs - A1C 6.4 - increasedBMI - prev trialed TLCs + GLP-1 - interested in bariatric consult, pending center referral R knee pain- ongoing for 20days- had severe pain on R knee w/ sudden onset- had difficulty walking due to the pain - eucalyptus cream - helped a little - first time with this pain - had some swelling, and points to the patella for pain - no falls, accident, trauma, redness - had accident with L knee many years ago - tried apap once, helped somewhat - pain most notable in the morning, after starting activity is when pain gets better - if stands/move for 2 hours, knee gets swollen and painful - has pain with flexion/extension - no imaging in the past - denies stiffness, buckling or instability - has tried ?lidocaine, with some effect- no fever/chills- no hx of gout, arthritis BMI - is battling with his wt for many years - has tried GLP-1 but had lots of s/e and no longer interested in injections - was Rx'd weekly 0.25mg injection, then inc to 0.75mg - felt his heart rate and BP were high and anxiety was worse with this - hoping to pursue bariatric surgery Varicose veins - posterior legs has varicose veins - has tried compression stockings - will refer to vascular surgery - ongoing for years Malodor urine- 6-7 bottles of water - 500mL - also foamy - no other urinary sxs - Plan- Xray - topical Voltaren - PT pending Xray - ice/heat, gentle stretches as helpful - wt loss role in knee pain APE CC: 38 YR APELan g: SpanPCP: JNIQuestions and Concerns:- has tried everything for weight loss. lifestyle changes, exercise, injections - tries to go to gym 3x/wk but its hard because has varicose veins- would like to meet w/[facility] to discuss options, BCM is finePMH:- HTN (nl ECHO 11/2023 LVEF 61%)- hepatic steatosis (abd US 10/2023)- PreDM- elev BMI = 47meds: - stopped amlodipine 10mg ~ 2 mos ago- otherwise reconciled specialist care: none PSH: denies aller: NKDA/NKFAFH: - mom w/hx colon cancer ~ 12 yrs ago (dx'd around 47) received 1 chemo and has been fine since, HTN, DM- dad w/ HTN- denies prostate cancer SH: born in [facility]. Lives w/brothers. Sexually active w/ female partner, declines STI screen. Works in [employer].tobacco: 12 yrs - 31 yrs then resumed age 36- 38 (quit 3 months ago) - max 4 cig/dayetoh: about 8 beers/wknd, sometimes whiskey, trying to cut back for his health substances: deniesHCM--- vaccines: HBV- labs: BMP, urine MAL, LFTs, lipids, A1c, TSH - HIV/HCV: HIV neg 07/2023, consent for HCV- Dental: needsROS: denies CP, SOB, black/bloody stools, +varicose veins obesity hypertension f/u meds here in [place] for f/u bmi/htn. newly pt of [facility], not yet seen new pcp. [facility] int# [id number] - bmi 44/wt 306lb. started wegovy ~2mo ago in 10/2023. has been doing the lowest dose since then. hasn't noticed any change on weight or appetite. has gained slight amt since starting. he didn't get to do his injection this week because he ran out. he hasn't had any SE with the med like nausea, GI upset.htn - bp's still high, on irbesartan 300mg and amlodipine 5mg, has been on these doses x 1 yr. very rarely misses doses of these. last bmp in 10/2023 with johnnie Monzon and Kdjustino flu, covid, tdap pre dm Med Education 38 y.o. male MHx HTN, pre-DM, fatty liver disease, and obesity presents in NAD for Wegovy education with CCM. Pre previous plan pt. to start taking Wegovy 0.25mg weekly. He reports feeling well today.Pt. confirms taking irbesartan 300mg, amlodipine 5mg, and Vit D. He is not sure what dose of medications he is taking, takes medication around 3-4PM daily, denies missing doses. He brings the Wegovy with him today. Was using Saxenda while in [place], he confirms understanding the SE.He sometimes checks BP and reports readings can 136/89, 135/87.Diet Hx: He tries to have more fruit then salty snacks when feeling very hungry after he returns from work. He doesn't usually eat while at work, just drinking lots of water. He does intermittent fasting, eats brkfst and then eats lunch in afternoon around 4PM. He then has fruits or ramen around 10PM.Brkfst yesterday 2 eggs with tortilla and cheese and slice of avocado and viveros tomatoes. Pork and salad in afternoon around 4PM.He reports having struggles with weight loss.Physical activity: he is walking for 30-40 minutes every morningPt. denies CP, palpitations, dizziness, dyspnea, edema, headaches, and sudden vision changes. Pt. denies new complaints. chronic conditions chronic conditions (comments) Co mments: This is a 38-year-old English-speaking male who was seen today for a follow-up visit. Patient with history of Hepatitis A. Has been seen by nursing visit for BP checks- on 09/19/23, addition of BP medication amlodipine 5 mg. Last home reading was 127/87.Patient verbalizes compliance with blood pressure medication (Irbesartan 150 mg, Irbesartan 300 mg, amlodipine 5 mg) regimen as prescribed. Patient reports no medication side effects.Pt denies chest pain/palpitations, SOB. Pt reports some exercise by walking for 20-30 minutes, when able. Pt's denies use of any caffeinated beverages. Pt report history of tobacco use. Has used cigarettes quitting 6 years ago, and now uses a vape occasionally.Notes from 07/2023 office vist: syrian speaking male, here from [facility] x 1 year now. See in [facility]/C Oct and Nov 2022. dx HTN and he was taking Irbesartan 300mg daily, HCTZ 25mg daily, Spironolactone, 25mg Amlodipine 10mg daily- rx'd in [facility]. First seen in in 10/2022 at [facility].He reports he does drink alot of caffeine, drinks and smokes socially, does eat some salty foods.Labs 10/2022: He was found to have elevated LFTs. Admits to social drinking.He states he believes he had hepatitis infection as a child. He does have several tattoos, done in [place] at reputable place. He denies any blood transfusions or IV drug use.B12 elevated-pt was taking supplement with this and potassium present and was advised to stop. Vitamin D was low and supplement was RxPt does have h/o varicose veins and he states he feels like this is getting worse. He does use compression stockings daily when working, he denies any pain in the legs. He is a current social smoker when he does have EtOH, 2 times a month.He canceled RUQ U/S 03/2023 and didn't go for Hep labs for elevated LFTs. He forgot his BP meds today. Did stop the B12/MVI but does report the numb/pins and needles sensation is gone in his right hand.Taking BP meds 11am after breakfast. 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 Was on 4 meds in [place]. Denies swelling with amlodipine.Fm hx: Mom- DM, HTN. 'Beginning of CA but ok"Soc Hx: [employer], washerQuit x 2 months Cig. Reports- only social- weekend- M-F 2-3cig/daily, weekends d/t business 1 ppd/day- Friday/Friday. 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 Vaccine Patient presents in NAD for Hep B vaccine. Patient is due for this vaccine. Patient reports he is well today. Patient denies history of serious side effect(s)/reaction with past immunizations. Patient denies problems eating eggs, allergy to gentamicin, neomycin, polymixin and gelatin. Vaccine Patient presents in NAD for Hep B vaccine. Patient is due for this vaccine. Patient reports they are well today. Patient denies history of serious side effect(s)/reaction with past immunizations. Patient denies problems eating eggs, allergy to gentamicin, neomycin, polymixin and gelatin. BP Check Pt presents in N AD for BP check per Celia Kwon NP POC on 09/19/23, addition of BP medication Amlodapine 5 mg. Patient verbalizes compliance with blood pressure medication (Irbesartan 150 mg, Irbesartan 300 mg, Amlodipine 5 mg) regimen as prescribed. Patient reports no medication side effects.Pt denies chest pain/palpitations, SOB. Pt reports some exercise by walking for 20-30 minutes, when able. Pt's denies use of any caffeinated beverages. Pt report history of tobacco use. Has used cigarettes quitting 6 years ago, and now uses a vape occasionally. Pt reports they had a BP Cuff but it broke. States they need a new cuff, no log with them today. BP Check Pt presents in N AD for BP check per provider POC after visit with ANDREW on 08/13/23. Patient verbalizes compliance with blood pressure medication (irbesartan) regimen as prescribed. Patient denies side effects from medications. Pt reports he takes his BP medications as night and took it last night. Pt denies chest pain/palpitations, SOB. Pt denies exercising. Pt reports drinking 1 cup of coffee daily. Pt denies tea or soda use. Pt reports he quit smoking 3 months. Pt has BP Cuff at home and records his reading on his phone. BP recordings are as follows: 08/14 - 136/875/18 - 147/905/19 - 145/915/20 - 147/965/21 - 150/955/22 - 152/955/23 - 148/915/24 - 143/875/25 - 150/925/26 - 155/945/27 - 142/915/28 - 145/905/29 - 140/91 Pt has BP goal of <140/<90. Last A1C on was 6.0 putting pt in pre-DM range. 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 See in [facility] U/C Oct and Nov 2022. dx HTN and he was taking Irbesartan 300mg daily, HCTZ 25mg daily, Spironolactone, 25mg Amlodipine 10mg daily- rx'd in [facility]. First seen in in 10/2022 at [facility].He reports he does drink alot of caffeine, drinks and smokes socially, does eat some salty foods.Labs 10/2022: He was found to have elevated LFTs. Admits to social drinking.He states he believes he had hepatitis infection as a child. He does have several tattoos, done in [place] at reputable place. He denies any blood transfusions or IV drug use.B12 elevated-pt was taking supplement with this and potassium present and was advised to stop. Vitamin D was low and supplement was RxPt does have h/o varicose veins and he states he feels like this is getting worse. He does use compression stockings daily when working, he denies any pain in the legs. He is a current social smoker when he does have EtOH, 2 times a month.He canceled RUQ U/S 03/2023 and didn't go for Hep labs for elevated LFTs. He forgot his BP meds today. Did stop the B12/MVI but does report the numb/pins and needles sensation is gone in his right hand.Taking BP meds 11am after breakfast. 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 Was on 4 meds in [place]. Denies swelling with amlodipine.Fm hx: Mom- DM, HTN. 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 Reports- only social- weekend- M-F 2-3cig/daily, weekends d/t business 1 ppd/day- Friday/Friday. 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 RESIDENT DIRECTOR BP F/u Remote Encoding Center Manager #[phone] presents for BP check. He is a new pt to the facility and was seen ~ 2 wks ago for HTN evaluation. He does bring log of BP readings from home, 130-140s/90-100s. He has not had any issues with the Irbesartan.He states he has been eating more veggies, lowering sugar/soda and walking ~ 20-25 minutes most days. We also discuss his labs from last visit.He was found to have elevated LFTs. Admits to social drinking.He states he believes he had hepatitis infection as a child. He does have several tattoos, done in [place] at reputable place. He denies any blood transfusions or IV drug use.B12 elevated-pt was taking supplement with this and potassium present and was advised to stop. Vitamin D was low and supplement was called in-pt has started. He continues to have R hand paresthesias. Pt does have h/o varicose veins and he states he feels like this is getting worse. He does use compression stockings daily when working, he denies any pain in the legs. He is a current social smoker when he does have EtOH, 2 times a month. check Bp Pt presents for BP check.He states he has a h/o HTN and he ran out of his medication. He was taking Irbesartan 300mg daily, HCTZ 25mg daily, Spironolactone, 25mg Amlodipine 10mg daily- rx'd in [facility]. He states he has recently lost ~ 30lbs.He reports he does drink alot of caffeine, drinks and smokes socially, does eat some salty foods. He also reports R hand fingers are tingling x 1 wk. This has been constant and has been painful/sensitive.He states his R upper arm is a little painful at times but he denies any trauma/injury/falls. PI#[id number] Functional Status Date Functional Assessmen t No Information Instructions Date Instruction Additional Infor devyn Dietary and exercise management, guidance, and counseling Related to Morbid (severe) obesity due to excess calories Dietary and exercise management, guidance, and counseling Related to Body mass index (BMI) 45.0-49.9, adult Dietary and exercise management, guidance, and counseling Related to Morbid (severe) obesity due to excess calories Dietary and exercise management, guidance, and counseling Related to Body mass index (BMI) 45.0-49.9, adult Dietary and exercise management, guidance, and counseling Related to Morbid (severe) obesity due to excess calories Dietary and exercise management, guidance, and counseling Related to Body mass index (BMI) 40.0-44.9, adult Dietary and exercise management, guidance, and counseling Related to Morbid (severe) obesity due to excess calories Dietary and exercise management, guidance, and counseling Related to Body mass index (BMI) 40.0-44.9, adult Assessments Type Assessment Date No Information Patient Care Teams Name Effective Dates (start - stop) Status Members No Information
--- OUTSIDE RECORDS SUMMARY | 2024-11-18 06:45 | XMS_ITS | Continuity of Care Document ---
Author Organization [facility] Address [address] [place] [address] Dr [address] [place] [phone] Phone Care Team Providers Care Face Hardener Name Role Phone Camryn MORGAN, Tiffanie Unavailable Unavailable Procedures Procedure Date Phleb Veins - Extrem - To 20- CT & MA Au Ultrason Guidan Needle Bx-rad- CT & MA A Inj Sclerosing Solution; Sngl- CT & [place] A Duplex Scan-extrem Veins; Uni/ CT & MA A Endovenous Rf, 1st Vein- CT & MA 2024 Offic Cons New/estab Mod 40 Mi- CT & MA Duplex Scan-extrem Veins; Comp- CT & [place] Advance Directives Directive Yes / No Effective Date File Name No Information Encounters Encounter Description Practice Location Reason(s) For Visit Diagnoses Date Provider Providers Copied on Encounter [facility], [address] [place] [address] [address], [place], [id number], tel:[phone] CVR [facility] Varicose veins of bilateral lower extremities with other complications [address] [place] [address], [id number], [place]. tel:[phone] Referring Provider: Tiffanie Cowan MD, [address] [place] [address], [place], [address] . tel:[phone] [facility], [address] [place] [address] Dr [address]ons[address], [id number], [place] tel:[phone] [facility] [place] [facility] [place] Encounter for follow-up examination after completed treatment for conditions other than malignant neChronic venous hypertension (idiopathic) with other complications of left lower extremity 5 Cam[address]no. [address] [place] [address], [id number], [place]. tel:[phone] Referring Provider: Tiffanie Cowan MD, [address] [place] [address], [id number] . tel:[phone] [facility], [address] [place] [address] Dr [address]ons[address]ves [address], [id number], [place] tel:[phone] CV[facility] [place] [facility] Varicose veins of bilateral lower extremities with other complications 5 Camryn Moreno. [address] [place] [address], [id number], [place]. tel:[phone] Offic Cons New/estab Mod 40 Mi- CT & [place] [facility], [address] [place] [address] Dr Gonsalves [address], [id number], [place] tel:[phone] CVR [facility] Varicose veins of bilateral lower extremities with other complications 5 Camryn Moreno. [address] [place] [address], [id number], [place]. tel:[phone] [facility], [address] [place] [address] Dr Gonsalves [address], [id number], [place] tel:[phone] [facility] [place] [facility] Chronic venous hypertension (idiopathic) with other complications of bilateral lower extremity 5 Camryn [address]no[address] [place] [address], [id number], [place]. tel:[phone] Referring Provider: Tiffanie Cowan MD, [address] [place] [address], [id number] . tel:[phone] Family History Family Member Type Diagnosis Age At Onset No Information Payers Payer name Insurance type Covered constitution party ID Claribel dowd(s) [facility] [id number] Social History Type Description Quantity Date Captured Comments Sex Male Smoking Status No Information Chief Complaint And Reason For Visit No Information Reason For Referral Reason For Referral No Information Plan Of Treatment Date Type Action Status Appointment Adarsh Mccullough BOOKED Appointment Adarsh Mccullough APPROVED BOOKED Appointment Pillo Machado, Os car PT WAS UNABLE TO COME ON THE PLEASE RESUME THAT [place] PLAN ON THIS DAY, THANK YOU [place] BOOKED Appointment Adarsh Mccullough APPROVED BOOKED Appointment Adarsh Mccullough BOOKED Appointment Adarsh Mccullough APPROVED BOOKED Appointment Adarsh Mccullough BOOKED Appointment Adarsh Mccullough APPROVED BOOKED Appointment Adarsh Mccullough BOOKED Appointment Adarsh Mccullough 10-20 W PHLEB APPROVED BOOKED Appointment Adarsh Mccullough BOOKED Appointment Adarsh Mccullough APPROVED BOOKED Appointment Adarsh Mccullough BOOKED Appointment Adarsh Mccullough APPROVED BOOKED History Of Present Illness Encounter Date Complaint History Of Prese nt Illness No Information Functional Status Date Functional Assessmen t No Information Instructions Date Instruction Additional Infor mation Patient education booklet given Related to Varicose veins of bilateral lower extremities with other complications Pre and post instruc tions reviewed and provided Related to Varicose veins of bilateral lower extremities with other complications Assessments Type Assessment Date No Information Patient Care Teams Name Effective Dates (start - stop) Status Members No Information
--- NOTE | ~2024-11-23 | XR_ITS ---
EXAMINATION: XR CHEST 2 VIEWS HISTORY: E66.01 - Morbid (severe) obesity due to excess calories COMPARISON: There are no prior studies available for comparison. FINDINGS: PA and lateral views of the chest are submitted. The lungs are expanded and clear. There is no pleural effusion, pneumothorax, or pulmonary vascular congestion. The heart is normal in size. The bones are intact. XR/XR chest 2V IMPRESSION: Clear lungs. Electronically signed by: Edilberto Hartley MD 11/23/2024 09:21 AM EDT
--- OUTSIDE RECORDS SUMMARY | 2024-11-23 08:21 | XMS_ITS | Encounter Summary ---
Author Organization [facility] Address [address] [place] [address] Care Team Providers Care Speed Winder Name Role Phone [facility] Encounter Details Date Type Department Care Team (Late st Contact Info) Description 08/21/2023 Community Orders [facility] EpicCare Link [address] [place] [address] Kyleigh Donis MD [address] [place] [address] Symptomatic varicose veins of both lower extremities (Primary Dx) Social History Tobacco Use Types Packs/Day Years Used Date Smoking Tobacco: Never Assessed Sex and Gender Information Value Date Recorded Sex Assigned at Male 12/02/2023 8:47 AM EDT Legal Sex Male 1:33 PM EST Gender Identity Not on file Sexual Orientation Not on file documented as of this encounter Plan of Treatment Not on file documented as of this encounter Visit Diagnoses Diagnosis Symptomatic varicose veins of both lower extremities- Primary documented in this encounter Additional Health Concerns Infection Onset Date Last Indicated Resolved Time COVID-19 - Suspected infection 11/13/2023 11/13/2023 11/13/2023 2:05 AM EDT documented as of this encounter Care Teams Speed Winder Relationship Specialty Start Date End Date [facility] [address] [place] [address] PCP - General 08/21/23 documented as of this encounter
--- OUTSIDE RECORDS SUMMARY | 2024-11-23 08:21 | XMS_ITS | Clinical Summary ---
Author Organization [facility] Address [address] [place] [address] Care Team Providers Care Marine Underwriter Name Role Phone [facility], John trujillo Care Provider Allergies No known active allergies Medications doxycycline hyclate (VIBRAMYCIN) 100 mg capsule Take 1 capsule (100 mg total) by mouth 2 times a day. 20 capsule 11/13/2023 Active Encounters Date Type Department Care Team Description 09/30/2024 11:19 AM EDT - 09/30/2024 11:59 PM EDT Hospital Encounter [facility] [address] [place] [address] Pain in joint of right knee Discharge [...] of 2 - 13+ 2-dose series) 08/29/1999 Diabetes Screening 2021 Alcohol/Substance Use Screening 03/31/2024 Depression Screening and Follow-Up 03/31/2024 Social Drivers of Health Annual Screening 03/31/2024 Hepatitis B Vaccines (3 of 3 - 19+ 3-dose series) 04/25/2024 11/21/2023, 10/24/2023 Basic Metabolic Panel 11/12/2024 11/13/2023 Influenza Vaccine (#1) 2024 02/03/2024 DTaP,Tdap,and Td Vaccines (2 - Td or Tdap) 02/02/2034 02/03/2024 RSV Vaccine (60+ years old and patients) (1 - 1-dose 75+ series) 2061 COVID-19 Vaccine Completed 02/03/2024 Pneumococcal Vaccine: Pediatric (0-5 Years) and At-Risk Patients (6-50 Years) Aged Out No longer eligible based on patient's age to complete this topic Procedures * Due to [place] law, this organization might not be sharing negative HIV tests. Procedure Name Priority Date/Time Associated Diagnosis Comments XR KNEE 3 VW RIGHT Routine 09/30/2024 11 :35 AM EDT Pain in joint of right knee BASIC METABOLIC PANEL STAT 11/13/2023 1:21 AM EDT from Last 3 Months or Most Recently Relevant to Health Maintenance Results * Due to [place] law, this organization might not be sharing [...] to obtain the completed interpretation. Workstation ID: [id number] Narrative 09/30/2024 4:36 PM EDT EXAMINATION: Right knee x-ray. TECHNIQUE: 3 view right knee x-ray. COMPARISON: None. CLINICAL INFORMATION: Right knee pain. FINDINGS: Mild tricompartmental joint space narrowing and evidence of osteoarthritis. No acute fractures or dislocations. No effusions or soft tissue swelling.. Resulting Agency Comment [id number] Procedure Note Uziel Medina MD - 09/30/2024 [...] possible to obtain thecompleted interpretation. Workstation ID: [id number] Janes Guillory CHEMISTRY PHYSICS TEACHER IMG XR PROCEDURES Final Result * (ABNORMAL) BMP - Basic Metabolic Panel (11/13/2023 1:21 AM EDT) NA 141 135 - 145 mmol/L 11/13/2023 2:00 AM EDT [facility] K 4.5 3.5 - 5.3 mmol/L 11/13/2023 2:00 AM EDT [facility] Cl 105 98 - 107 mmol/L 11/13/2023 2:00 AM EDT [facility] CO2 24 24 - 32 mmol/L 11/13/2023 2:00 AM EDT [facility] BUN 11 7 - 23 mg/dL 11/13/2023 2:00 AM EDT [facility] Creatinine 0.73 0.60 - 1.30 mg/dL 11/13/2023 2:00 AM EDT [facility] Glucose 109(H) 65 - 99 mg/dL 11/13/2023 2:00 AM EDT [facility] Calcium 9.6 8.6 - 10.5 mg/dL 11/13/2023 2:00 AM EDT [facility] Anion Gap 12 5 - 15 11/13/2023 2:00 AM EDT [facility] eGFR >90 >=60 mL/min/1. 73m2 11/13/2023 2:00 AM EDT [facility] Comment:The estimated glomer ular filtration rate (eGFR) is calculated using a new formula developed by the NKF-ASN task force to eliminate race-based correction factors. The new formula uses serum/plasma creatinine, age, and gender to determine eGFR. A value below 60mls/min might indicate kidney disease and will be flagged. For additional information, see Raphale et al, Am J Kidney Dis. 2021;79(2):268- 288, A Unifying Approach for GFR estimation: Recommendations of the NKF-ASN Task Force on Reassessing the Inclusion of Race in Diagnosing Kidney Disease . Blood Structure of peripheral vein / Unknown Venipuncture / Unknown 11/13/2023 1:21 AM EDT 11/13/2023 1:27 AM EDT us Juan Matson MD LAB BLOOD ORDERABLES Final Result [facility] [address] [place] [address], from Last 3 Months or Most Recently Relevant to Health Maintenance Insurance HSNO/FREE [facility] Care Teams Marine Underwriter Relationship Specialty Start Date End Date [facility] [address] [place] [address] PCP - General 08/21/23
--- OUTSIDE RECORDS SUMMARY | 2024-11-23 08:21 | XMS_ITS | Clinical Summary ---
Author Organization [facility] Address [address] [place] [address] Phone Care Team Providers Care Oracle Forms Developer Name Role Phone Janessa Waters MD Unavailable [...] of Vascular and Endovascular Surgery [address] [facility] [address] [place] [phone] Javid Jerome MD [address] [place] [address] Health Maintenance Due Date Last Done Comments Diabetes Screening 1986 HIV Lifetime Screening 1986 Hepatitis B Lifetime Screening 1986 Hepatitis C Antibody Lifetim e Screening 1986 THRIVE SCREENING 1986 Oral Health Screen 01/28/1987 HEIP Disability Screen 08/29/1991 BEHAVIORAL HEALTH SCREEN 1998 Psych Substance Use Screen 1998 DTAP/TDAP VACCINE (1 - Tdap) 2005 HPV VACCINES (1 - 3-dose SCD M series) 2013 COVID-19 Vaccine (2023-2 5 season) 2023 INFLUENZA VACCINE (#1) 2024 Zoster Vaccine (1 of 2) 2036 IPV VACCINES Aged Out No longer eligi ble based on patient's age to complete this topic MENINGOCOCCAL B Aged Out No longer el igible based on patient's age to complete this topic Pneumonia Vaccine 0-49 Years Aged Out No longer eligible based on patient's age to complete this topic ROTAVIRUS VACCINES Aged Out No longer eligible based on patient's age to complete this topic Care Teams Oracle Forms Developer Relationship Specialty Start Date End Date Janessa Waters MD [address] [place] [phone] PCP - Insurance 08/10/24
--- OUTSIDE RECORDS SUMMARY | 2024-11-23 08:21 | XMS_ITS | Encounter Summary ---
Author Organization [facility] Address [address] [place] [address] Care Team Providers Care Senior Python Developer Name Role Phone [facility], John Valadez ronnie Care Provider Reason for Referral * Diagnostic Imaging (Routine) - Closed Specialty Diagnoses / Procedures Referred By Brandon brizuela Referred To Contact Diagnoses Elevated liver enzymes Procedures US Limited Abdomen Single Organ US Abdomen Complete, Doppler Lmtd Matthew Walker MD Phone: tel: fax: Referral ID Status Reason Start Date Expiration Date Visits Re quested Visits Authorized [id number] Closed 04/01/2023 09/30/2024 1 1 Encounter Details Date Type Department Care Team (Late st Contact Info) Description 04/01/2023 Community Orders [facility] EpicCare Link [address] [place] [address] Matthew Walker MD [address] [place] [address] Elevated liver enzymes (Primary Dx) Social History Tobacco Use Types Packs/Day Years Used Date Smoking Tobacco: Never Assessed Sex and Gender Information Value Date Recorded Sex Assigned at Male 12/02/2023 8:47 AM EDT Legal Sex Male 1:33 PM EST Gender Identity Not on file Sexual Orientation Not on file documented as of this encounter Plan of Treatment Not on file documented as of this encounter Results * Due to [place] state law, this organization might not be sharing negative HIV tests. * US Limited Abdomen Single Organ (10/31/2023 7:50 AM EDT) Anatomical Region Laterality Modality Body N/A Ultrasound 11/01/2023 1:24 AM EDT Impressions 11/01/2023 1:27 AM EDT 1. Hepatic steatosis with sparing. 2. Cholelithiasis without sonographic evidence of acute cholecystitis. 3. No biliary dilatation. COMMUNICATION: Per written report. If this radiology report contains a blank impression section, it is an incomplete radiology report. Please contact the interpreting radiologist or applicable radiology division as soon as possible to obtain the completed interpretation. Workstation ID: [id number] Narrative 11/01/2023 1:27 AM EDT EXAMINATION: Limited right upper quadrant ultrasound with color Doppler. INDICATION: Abnormal liver enzymes TECHNIQUE: Real-time sonographic evaluation of the right upper quadrant with color Doppler evaluation is performed and telephone claims representative static images and multiple cine captures are submitted. COMPARISON: Unremarkable FINDINGS: LIVER: Portions obscured by shadowing rib and the need for intercostal access. Echogenic attenuating parenchyma with geographic areas of both increased and decreased echogenicity. Smooth contour without focal lesion GALLBLADDER: Physiologically distended with 2.9 cm gallstone in the neck which is relatively immobile, only shifting after prone position. Absent sonographic Krishnamurthy sign BILIARY TREE: CBD 3 mm without intrahepatic biliary dilatation HEPATIC VASCULATURE: Patent with appropriate hepatopedal portal venous blood flow direction PERITONEUM: No ascites in Morison space PANCREAS: Partially obscured, unremarkable where seen. Patent splenic vein and portal venous confluence RIGHT KIDNEY: 11.1 cm. Normal parenchyma without solid mass hydronephrosis or sonographically evident nephrolithiasis. Patent vasculature. Aorta: Normal caliber to the common iliac artery bifurcation, the latter patent IVC: Normal caliber intrahepatic segment, patent Resulting Agency Comment [id number] Procedure Note Sudha, Ivory Hernandez MD - 11/01/2023 EXAMINATION: Limited right upper quadrant ultrasound with color Doppler. INDICATION: Abnormal liver enzymes TECHNIQUE: Real-time sonographic evaluation of the right upper quadrantwith color Doppler evaluation is performed and telephone claims representative staticimages and multiple cine captures are submitted. COMPARISON: Unremarkable FINDINGS: LIVER: Portions obscured by shadowing rib and the need for intercostalaccess. Echogenic attenuating parenchyma with geographic areas of bothincreased and decreased echogenicity. Smooth contour without focallesion GALLBLADDER: Physiologically distended with 2.9 cm gallstone in the neckwhich is relatively immobile, only shifting after prone position. Absentsonographic Krishnamurthy sign BILIARY TREE: CBD 3 mm without intrahepatic biliary dilatation HEPATIC VASCULATURE: Patent with appropriate hepatopedal portal venousblood flow direction PERITONEUM: No ascites in Morison space PANCREAS: Partially obscured, unremarkable where seen. Patent splenic veinand portal venous confluence RIGHT KIDNEY: 11.1 cm. Normal parenchyma without solid mass hydronephrosisor sonographically evident nephrolithiasis. Patent vasculature. Aorta:Normal caliber to the common iliac artery bifurcation, the latter patent IVC: Normal caliber intrahepatic segment, patent IMPRESSION: 1. Hepatic steatosis with sparing. 2. Cholelithiasis without sonographic evidence of acute cholecystitis. 3. No biliary dilatation. COMMUNICATION: Per written report. If this radiology report contains a blank impression section, it is anincomplete radiology report. Please contact the interpreting radiologistor applicable radiology division as soon as possible to obtain thecompleted interpretation. Workstation ID: [id number] us Matthew Cheema MD IMG US PROCEDURES Final Result documented in this encounter Visit Diagnoses Diagnosis Elevated liver enzymes- Primary Other nonspecific abnormal serum enzyme levels Elevated liver enzymes Other nonspecific abnormal serum enzyme levels documented in this encounter Additional Health Concerns Infection Onset Date Last Indicated Resolved Time COVID-19 - Suspected infection 11/13/2023 11/13/2023 11/13/2023 2:05 AM EDT documented as of this encounter Care Teams Senior Python Developer Relationship Specialty Start Date [facility] Date [facility] [address] [place] [address] PCP - General 08/21/23 documented as of this encounter
--- OUTSIDE RECORDS SUMMARY | 2024-11-23 08:21 | XMS_ITS | Referral Summary ---
Author Organization [facility] Address [address] [place] [address] Phone Care Team Providers Care Tape Librarian Name Role Phone Janessa Waters MD Unavailable [...] Vascular and Endovascular Surgery [address] [facility] [address] [place] [phone] Javid Jerome MD [address] [place] [address] Care Teams Tape Librarian Relationship Specialty Start Date End Date Janessa Waters MD [address] [place] [phone] PCP - Insurance 08/10/24
[2024-11-23 08:29] LABS: MANUAL DIFF FLAG NO
--- NOTE | 2024-11-23 08:31 | ECG_ITS ---
Test Reason : morbid obesity Blood Pressure : */* mmHG Vent. Rate : 67 BPM Atrial Rate : 67 BPM P-R Int : 176 ms QRS Dur : 120 ms QT Int : 390 ms P-R-T Axes : 20 17 13 degrees QTcB Int : 412 ms Normal sinus rhythm Normal ECG No previous ECGs available Referred By: Papi Vences Electronically Signed By: VAHE LEAL
[2024-11-23 08:48] LABS: Hemoglobin A1C 156.6420 umol/L; Total Hemoglobin (HGBA1C) 3964.9316 umol/L
[2024-11-23 08:49] LABS: Hematocrit 46.7 % (42.0-52.0); Hemoglobin 15.4 g/dl (14.0-18.0); Imm Gran Abs Auto 0.02 X10*3/uL (0.00-0.03); Imm Gran Pct Auto 0.3 % (0.0-0.4); Lymphocytes Absolute Auto 2.3 X10*3/uL (1.2-4.9); Mean Corpuscular HGB Conc 33.0 g/dl (31.0-36.0); Mean Corpuscular Hemoglobin 28.0 pg (27.0-33.0); Mean Corpuscular Volume 84.9 fL (80.0-98.0); NRBC Abs Auto 0.000 X10*3/uL (0.0-0.012); NRBC Pct Auto 0.0 /100WBC (0.0-0.2); Platelet Count 300 X10*3/uL (160-400); Red Blood Count 5.50 X10*6/uL (4.60-5.80); White Blood Count 6.8 X10*3/uL (4.8-10.8)
[2024-11-23 09:12] LABS: Albumin Level 4.9 g/dL (3.5-5.0); Alkaline Phosphatase 114 U/L (39-117); Anion Gap 12 (12-20); Aspartate Amino Transferase 35 U/L (5-37); Blood Urea Nitrogen 15 mg/dL (9-16); Calcium 9.4 mg/dL (8.4-10.2); Carbon Dioxide 27 mmol/L (22-29); Chloride 105 mmol/L (96-108); Cholesterol 154 mg/dL (<200); Estimated Glomerular Filt Rate > 60; HDL Cholesterol 38 mg/dL (>40); Iron 150 mcg/dL (45-160); Percent Iron Saturation 43 % (15-50); Potassium 4.3 mmol/L (3.3-5.1); Sodium 140 mmol/L (135-145); Total Iron Binding Capacity 352 mcg/dL (228-428); Total Protein 8.2 g/dL (6.5-8.0); Triglycerides 91 mg/dL (<150); Unsaturated Iron Binding 202 ug/dL
[2024-11-23 09:39] LABS: Folate 11.9 ng/mL (> or = 4.0); Vitamin B12 551 pg/mL (200-900)
[2024-11-23 09:40] LABS: Ferritin 418 ng/mL (20-250)
[2024-11-23 10:57] LABS: Alanine Aminotransferase 81 U/L (0-40)
== END 2024-11-23 08:15 | disposition home or self-care (01) ==
LOC: HO.XRAY 08:14
PROVIDERS: PCP Family Medicine; Visit Provider Surgery
DX: E66.01 Morbid (severe) obesity due to excess calories (principal); I10 Essential (primary) hypertension
CPT/HCPCS: 36415; 71046; 80053; 80061; 82306; 82607; 82728; 82746; 83036; 83525; 83540; 84425; 84443; 84590; 84630; 85025; 86140; 93005

== ENCOUNTER → 2024-11-23 08:31 | Outpatient (BNV) | payer OTHER, SELFPAY | PROVIDERS: PCP Family Medicine; Visit Provider Internal Medicine | DX: E66.01 Morbid (severe) obesity due to excess calories (principal) | CPT/HCPCS: 93010 ==

== ENCOUNTER → 2024-11-23 08:43 | Outpatient (BNV) | payer OTHER, SELFPAY | PROVIDERS: PCP Family Medicine; Visit Provider Radiology Diagnostic Radiology | DX: E66.01 Morbid (severe) obesity due to excess calories (principal) | CPT/HCPCS: 71046 ==

== ENCOUNTER 2024-12-22 09:14 | Outpatient (AMB) | payer OTHER, SELFPAY ==
--- NOTE | 2024-12-22 09:05 | A.OFFWM_ITS ---
Intake Intake Visit Reasons: TV BH Intake Allergies No Known Allergies Allergy (Verified 11/12/24 10:29) [facility] Medical History (Updated 12/02/24 @ 20:53 by Papi Vences MD) DJD (degenerative joint disease) Hypertension Morbid obesity Surgical History No history of previous surgery Family History (Updated 08/25/24 @ 14:31 by Val Gerber CMA) Mother Diabetes Hypertension Colon cancer Father Hypertension Social History (Updated 08/25/24 @ 14:30 by Val Gerber CMA) Are you a primary child care provider to a significant other at home: No Do you presently have visiting nurse or other home services: No Alcohol intake: current Alcohol intake frequency: holidays/special occasions only Patient Tobacco Use Status: Current everyday Tobacco user Tobacco use type: Cigarette Cigarettes Per Day: 2 Behavioral Health Assessment Weight Management Therapy Therapy Notes Details PT is a 39 years old self-referred male, who presents for initial visit to complete BH assessment as part of surgical weight loss program. Presenting Concerns Referral Source WMP-Provider Reason for referral Completion of behavioral health assessment as part of process for weight-loss surgery. Precipitating Event Obesity Food/Weight/Diet Expectations of change PT started the program on 11/03/2024 at 314Lbs, initial goal is to lose 10% of his weight before surgery, which is about 30lbs. Ultimate weight goal: 284lbs before surgery. Weight last week on 12/16/24 was 291Lbs. Patient goals are to be at least 185Lbs. PT is implementing the following: Current meal plan: 2 protein shakes, 3 protein bars and one meal per day. Exercise plan: treadmill 20-30min 3-4 days at week. Scale: yes Communication w/ provider: , weekly. Social History Family history and relationship PT is in a long-term relationship 8 years ago. They don't have children. Her parents are live and both live in [place], he has 2 younger siblings who live in the area with him. Parental/Familial lining repairer obligations None reported. Developmental history and status WNL. Social support Brothers, partner, parents. 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 Cultural/Ethnic information PT is from [place], have been in the [place] 2 years ago. PT is mainly Czech-speaking. Legal Involvement and History Current or historical involvement with the legal system? None reported. Education Highest grade completed HS. 3 years college Preferred learning style Auditory and Learn by doing Currently enrolled in educational program? Yes Interested in further educational program? No Educational Interests/Skills PT is currently enrolled in College, finishing his bachelor's in business administration. 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 ) Wants help to find employment? No Meaningful activities Travel, short getaways, drive. Financial Situation Describe current financial situation Comfortable and Occasional struggle Financial assistance? None Service Service? No Mental Health and Addiction Treatment Current/Past substance abuse? No Comments Alcohol: 1 beer every other day, or a glass of wine. And more on weekends. Cigarettes/Tobacco: 1-2 at day. Cannabis/Edibles: None. Current/Past addictive behavior concerns? No Psychiatric history PT reports he has never been in counseling or any type of MH treatment. PT denies ever been in crisis or inpatient for mental health. There is no history and/or current concern about SI/Sa and self-harm or other harm. Medical and Physical Health Summary Additional Medical History not covered in history Varicose veins, he had a surgery recently. Sexual History concerns None reported. Physical exam in the last year? Yes (He sees his PCP every 4 months. ) Pain Screening Current pain? No Pain in the last few months? Yes Comments Knee pain. Medications Is the patient compliant with medications? Yes Does the patient have Azevedo Guardian in place? Not applicable Does the patient use complimentary health approaches? No Trauma/Abuse History History of trauma? No Questionnaires PHQ-9 Over the last 2 weeks, how often have you been bothered by any of the following problems? 1. Little interest or pleasure in doing things: nearly every day 2. Feeling down, depressed, or hopeless: not at all 3. Trouble falling or staying asleep, or sleeping too much: more than half the days 4. Feeling tired or having little energy: nearly every day 5. Poor appetite or overeating: nearly every day 6. Feeling bad about yourself - or that you are a failure or have let yourself or your family down: not at all 7. Trouble concentrating on things, such as reading the newspaper or watching television: not at all 8. Moving or speaking so slowly that other people could have noticed. Or the opposite - being so fidgety or restless that you have been moving around a lot more than usual: not at all 9. Thoughts that you would be better off or of hurting yourself in some way: not at all Total score: 11 Depression Screening Interpretation: Positive (from new PT form administered on 08/25/24) Depression Screening Done: Yes Source: Developed by Drs. Edilberto Wheeler, Laura Reyez, Moreno Castillo and colleagues, with an educational tiffanie from [employer]. Assessment & Plan Assessment & Plan (1) Adjustment disorder: Code(s): F43.20 - Adjustment disorder, unspecified (2) Inappropriate diet or eating habits: Code(s): Z72.4 - Inappropriate diet and eating habits (3) Pre-bariatric surgery psychological evaluation: Code(s): Z71.89 - Other specified counseling Plan The patient was not cleared today as the assessment was not completed. The patient will return in 2-4 weeks to continue the evaluation and at next visit BES will be reviewed and a new PGHQ-9 administered. Next appointment: 01/07/25 at 10am, video Telehealth Telehealth Telehealth Platform: [facility] Location of provider rendering services: practice address Location of patient: address on file Patient Identification confirmed using: Name, : Yes Telehealth method: video Patient verbally consented to treatment: Yes Patient verbally consented to billing insurance company: Yes Patient informed of any privacy concerns related to visit: Yes Minutes spent on Phone/Video with Pt.: 55 Coding Level of Care Code New Pt Tele Psy Diag Eval (20737) Patient Type New Diagnoses Adjustment disorder F43.20 Inappropriate diet or eating habits Z72.4 Pre-bariatric surgery psychological evaluation Z71.89 Time Spent (min) 55
--- OUTSIDE RECORDS SUMMARY | 2024-12-22 10:49 | XMS_ITS | Clinical Summary ---
Author Organization [facility] Address [address] [place] [address] Care Team Providers Care Spooling Operator Name Role Phone [facility], John trujillo Care Provider Allergies No known active allergies Medications doxycycline hyclate (VIBRAMYCIN) 100 mg capsule Take 1 capsule (100 mg total) by mouth 2 times a day. 20 capsule 11/13/2023 Active Encounters Date Type Department Care Team Description 09/30/2024 11:19 AM EDT - 09/30/2024 11:59 PM EDT Hospital Encounter [facility] Xray [address] [place] [address] Pain in joint of right knee Discharge [...] - 19+ 3-dose series) 04/25/2024 11/21/2023, 10/24/2023 Influenza Vaccine (#1) 2024 02/03/2024 DTaP,Tdap,and Td Vaccines (2 - Td or Tdap) 02/02/2034 02/03/2024 RSV Vaccine (60+ years old and patients) (1 - 1-dose 75+ series) 2061 Diabetes Screening Discontinued 11/13/2023 COVID-19 Vaccine Completed 02/03/2024 Pneumococcal Vaccine: Pediatric (0-5 Years) and At-Risk Patients (6-50 Years) Aged Out No longer eligible b ased on patient's age to complete this topic Procedures * Due to [place] idiag law, this organization might not be sharing negative HIV tests. Procedure Name Priority Date/Time Associated Diagnosis Comments XR KNEE 3 VW RIGHT Routine 09/30/2024 11 :35 AM EDT Pain in joint of right knee BASIC METABOLIC PANEL STAT 11/13/2023 1:21 AM EDT from Last 3 Months or Most Recently Relevant to Health Maintenance Results * Due to [place] idi[place] law, this organization might not be sharing negative HIV tests. * XR Knee 3 vw Right (09/30/2024 11:35 AM EDT) Anatomical Region Laterality Modality Lower Extremities, Knee Right Computed Radiography 09/30/2024 1:15 PM EDT Impressions 09/30/2024 4:36 PM EDT Early osteoarthritic changes with no acute fractures or dislocations.. I, Uziel Cancinonbaum, have reviewed the examination and concur with the findings as reported or so edited. Trainee: Edilberto Chase If this radiology report contains a blank impression section, it is an incomplete radiology report. Please contact the interpreting radiologist or applicable radiology division as soon as possible to obtain the completed interpretation. Workstation ID: [id number] Narrative 09/30/2024 4:36 PM EDT EXAMINATION: Right knee x-ray. TECHNIQUE: 3 view right knee x-ray. COMPARISON: None. CLINICAL INFORMATION: Right knee pain. FINDINGS: Mild tricompartmental joint space narrowing and evidence of osteoarthritis. No acute fractures or dislocations. No effusions or soft tissue swelling.. Resulting Agency Comment [id number] Procedure Note Uziel Medina MD - 09/30/2024 [...] possible to obtain thecompleted interpretation. Workstation ID: [id number] Janes Guillory SPINNER OPERATOR IMG XR PROCEDURES Final Result * (ABNORMAL) BMP - Basic Metabolic Panel (11/13/2023 1:21 AM EDT) NA 141 135 - 145 mmol/L 11/13/2023 2:00 AM EDT [facility] K 4.5 3.5 - 5.3 mmol/L 11/13/2023 2:00 AM EDT [facility] Cl 105 98 - 107 mmol/L 11/13/2023 2:00 AM EDT [facility] CO2 24 24 - 32 mmol/L 11/13/2023 2:00 AM EDT [facility] BUN 11 7 - 23 mg/dL 11/13/2023 2:00 AM EDT [facility] Creatinine 0.73 0.60 - 1.30 mg/dL 11/13/2023 2:00 AM EDT [facility] Glucose 109(H) 65 - 99 mg/dL 11/13/2023 2:00 AM EDT [facility] Calcium 9.6 8.6 - 10.5 mg/dL 11/13/2023 2:00 AM EDT [facility] Anion Gap 12 5 - 15 11/13/2023 2:00 AM EDT [facility] eGFR >90 >=60 mL/min/1. 73m2 11/13/2023 2:00 AM EDT [facility] Comment:The estimated glomer ular filtration [...] Matson MD LAB BLOOD ORDERABLES Final Result [facility] [address] [place] [address], [place] from Last 3 Months or Most Recently Relevant to Health Maintenance Insurance HSNO/[place] [address] [place] [address] Care Teams Spooling Operator Relationship Specialty Start Date End Date [facility], John Marcano [address] [place] [address] PCP - General 08/21/23
--- OUTSIDE RECORDS SUMMARY | 2024-12-22 10:49 | XMS_ITS | Encounter Summary ---
Author Organization [facility] Address [address] [place] [address] Care Team Providers Care Sanitary Engineer Name Role Phone [facility] Encounter Details Date Type Department Care Team (Late st Contact Info) Description 08/21/2023 Community Orders [facility] EpicCare Link [address] [place] [address] Kyleigh Donis MD [address] [place] [address] Symptomatic varicose veins of both lower extremities [...] documented as of this encounter Care Teams Sanitary Engineer Relationship Specialty Start Date End Date [facility] [address] [place] [address] PCP - General 08/21/23 documented as of this encounter
--- OUTSIDE RECORDS SUMMARY | 2024-12-22 10:49 | XMS_ITS | Referral Summary ---
Author Organization [facility] Address [address] [place] [address] Phone Care Team Providers Care Conductor/Brakeman Name Role Phone Haydee Fraga MD Unavailable [phone] Encounters Date Type Department Care Team Description 12/01/2024 8:30 AM EDT - 12/01/2024 11:59 PM EDT Hospital Encounter Department of Radiology [address] [facility] [place] [address] Luz Maria Ovalle NP Fatty liver disease, nonalcoholic Discharge Disposition: Home or Self Care from Last 3 Months Social History Tobacco [...] Vascular and Endovascular Surgery [address] [facility] [address] [place] [phone] Javid Jerome MD [address] [place] [address] Procedures Procedure Name Priority Date/Time Associated Diagnosis Comments US ABDOMEN COMPLETE Routine 12/01/2024 9:21 AM EDT Fatty liver disease, nonalcoholic from Last 3 Months Results * US Abdomen Complete (12/01/2024 9:21 AM EDT) Anatomical Region Laterality Modality Abdomen Ultrasound 12/01/2024 1:42 PM EDT Impressions 12/01/2024 1:51 PM EDT 1. Hepatic steatosis. No focal hepatic lesion. 2. Cholelithiasis without sonographic evidence for acute cholecystitis. I personally reviewed the study and agree with the dictated report. Dictated by: Bonifacio Copeland Dictated date and time: 12/01/2024 1:42 PM Electronically signed by: Kenneth Arvizu MD Signed date and time: 12/01/2024 1:51 PM Narrative 12/01/2024 1:51 PM EDT EXAMINATION: US ABDOMEN COMPLETE HISTORY: 38 yo M with PreD, obesity, NAFLD w/ worsening elev LFTs and hx of known NAFLD on abd US 10/2023. Ordering repeat US for monitoring. COMPARISON: None. TECHNIQUE: Real-time 2D boyd-scale ultrasound with color doppler using curved array transducer was performed. FINDINGS: Suboptimal evaluation due to body habitus. Liver: Fatty liver. No focal solid mass or dilated intrahepatic ducts. Main portal vein is patent with hepatopetal flow. Gallbladder: Gallstone within a nondistended gallbladder. No wall thickening or fluid around the gallbladder. Negative sonographic Krishnamurthy's sign. Pancreas: Not visualized. Proximal CBD measures 0.29 cm. Right kidney measures 12.48 cm. Left kidney measures 12.37 cm. Kidneys are normal. Spleen measures 10.87 cm. Spleen is normal. Ascites: None. Visualized aorta and IVC are unremarkable. Procedure Note Kenneth Arvizu MD - 12/01/2024 EXAMINATION: US ABDOMEN COMPLETE HISTORY: 38 yo M with PreD, obesity, NAFLD w/ worsening elev LFTs and hx of knownNAFLD on abd US 10/2023. Ordering repeat US for monitoring. COMPARISON: None. TECHNIQUE: Real-time 2D boyd-scale ultrasound with color doppler using curved arraytransducer was performed. FINDINGS: Suboptimal evaluation due to body habitus. Liver: Fatty liver. No focal solid mass or dilated intrahepatic ducts.Main portal vein is patent with hepatopetal flow. Gallbladder: Gallstone within a nondistended gallbladder. No wallthickening or fluid around the gallbladder. Negative sonographic Krishnamurthy'ssign. Pancreas: Not visualized. Proximal CBD measures 0.29 cm. Right kidney measures 12.48 cm. Left kidney measures 12.37 cm. Kidneys arenormal. Spleen measures 10.87 cm. Spleen is normal. Ascites: None. Visualized aorta and IVC are unremarkable. IMPRESSION: 1. Hepatic steatosis. No focal hepatic lesion. 2. Cholelithiasis without sonographic evidence for acute cholecystitis. I personally reviewed the study and agree with the dictated report. Dictated by: Bonifacio Copeland Dictated date and time: 12/01/2024 1:42 PM Electronically signed by: Kenneth Arvizu MD Signed date and time: 12/01/2024 1:51 PM us Luz Maria Ovalle FIRE CREW WORKER IMG US ORDERABLES Final Resu lt from Last 3 Months Care Teams Conductor/Brakeman Relationship Specialty Start Date End Date Haydee Fraga MD [address] [place] [id number] PCP - Insurance 11/30/24
--- OUTSIDE RECORDS SUMMARY | 2024-12-22 10:49 | XMS_ITS | Clinical Summary ---
Author Organization [facility] Address [address] [place] [address] Phone Care Team Providers Care Full Stack Web Developer Name Role Phone Haydee Fraga MD Unavailable [phone] Encounters Date Type Department Care Team Description 12/01/2024 8:30 AM EDT - 12/01/2024 11:59 PM EDT Hospital Encounter Department of Radiology [address] [facility] [place] [address] Luz Maria Ovalle NP Fatty liver disease, [...] of Vascular and Endovascular Surgery [address] [facility] [address] [place] [id number] Javid Jerome MD [address] [place] [address] Health Maintenance Due Date Last Done Comments Diabetes Screening 1986 HIV Lifetime Screening 1986 Hepatitis B Lifetime Screening 1986 Hepatitis C Antibody Lifetim e Screening 1986 THRIVE SCREENING 1986 Oral Health Screen 01/28/1987 HEIP Disability Screen 08/29/1991 BEHAVIORAL HEALTH SCREEN 1998 Psych Substance Use Screen 1998 DTAP/TDAP VACCINE (1 - Tdap) 2005 Pneumonia Vaccine 0-49 Years (1 of 2 - PCV) 2005 HPV VACCINES (1 - 3-dose SCD M series) 2013 INFLUENZA VACCINE (#1) 2024 02/03/2024 Zoster Vaccine (1 of 2) 2036 COVID-19 Vaccine Completed 02/03/2024 IPV VACCINES Aged Out No longer eligi ble based on patient's age to complete this topic MENINGOCOCCAL B Aged Out No longer el igible based on patient's age to complete this topic ROTAVIRUS VACCINES Aged Out No longer eligible based on patient's age to complete this topic Procedures Procedure Name Priority Date/Time Associated Diagnosis [...] 12/01/2024 1:51 PM us Luz Maria Ovalle ALCOHOL LAW ENFORCEMENT AGENT IMG US ORDERABLES Final Resu lt from Last 3 Months Care Teams Full Stack Web Developer Relationship Specialty Start Date End Date Haydee Fraga MD [address] [place] [address] PCP - Insurance 11/30/24
--- OUTSIDE RECORDS SUMMARY | 2024-12-22 10:49 | XMS_ITS | Encounter Summary ---
Author Organization [facility] Address [address] [place] [address] Care Team Providers Care Finisher Wallboard And Plasterboard Name Role Phone [facility], John Valadez ronnie Care Provider Reason for Referral * Diagnostic Imaging (Routine) - Closed Specialty Diagnoses / Procedures Referred By Brandon brizuela Referred To Contact Diagnoses Elevated liver enzymes Procedures US Limited Abdomen Single Organ US Abdomen Complete, Doppler Lmtd Matthew Walker MD Phone: tel: fax: Referral ID Status Reason Start Date Expiration Date Visits Re quested Visits Authorized [id number] Closed 04/01/2023 09/30/2024 1 1 Encounter Details Date Type Department Care Team (Late st Contact Info) Description 04/01/2023 Community Orders [facility] EpicCare Link [address] [place] [address] Matthew Walker MD [address] [place] [address] Elevated liver enzymes (Primary Dx) Social History [...] of this encounter Results * Due to [place] state law, this organization might not be [...] to obtain the completed interpretation. Workstation ID: [id number] Narrative 11/01/2023 1:27 AM EDT EXAMINATION: Limited right upper quadrant ultrasound with color Doppler. INDICATION: Abnormal liver enzymes TECHNIQUE: Real-time sonographic evaluation of the right upper quadrant with color Doppler evaluation is performed and technical support representative static images and multiple cine captures [...] caliber intrahepatic segment, patent Resulting Agency Comment [id number] Procedure Note Sudha, Ivory Hernandez MD - 11/01/2023 EXAMINATION: Limited right upper quadrant ultrasound with color Doppler. INDICATION: Abnormal liver enzymes TECHNIQUE: Real-time sonographic evaluation of the right upper quadrantwith color Doppler evaluation is performed and technical support representative staticimages and multiple cine captures are [...] possible to obtain thecompleted interpretation. Workstation ID: [id number] us Matthew Cheema MD IMG US PROCEDURES [...] documented as of this encounter Care Teams Finisher Wallboard And Plasterboard Relationship Specialty Start Date End Date [facility] [address] [place] [address] PCP - General 08/21/23 documented as of this encounter
== END 2024-12-22 10:08 | disposition home or self-care (01) ==
LOC: HO.HBST 09:14
PROVIDERS: PCP Family Medicine; Visit Provider Counselor Mental Health
DX: F43.20 Adjustment disorder, unspecified (principal); Z72.4 Inappropriate diet and eating habits; Z71.89 Other specified counseling
CPT/HCPCS: 90791

== ENCOUNTER 2025-01-03 07:58 | Outpatient (REF) | payer OTHER, SELFPAY ==
--- NOTE | ~2025-01-03 | US_ITS ---
EXAMINATION: US COMPLETE ABDOMEN WITH LIVER ELASTOGRAPHY CLINICAL INFORMATION: Morbid obesity COMPARISON: None available. TECHNIQUE: Real-time imaging of the abdominal viscera. Noninvasive ultrasound liver fibrosis assessment is performed using Nikki ElastPQ point quantification shear wave elastography (pSWE) with a C5-2 MHz transducer. Multiple elastography samples are obtained. FINDINGS: PANCREAS: The visualized pancreatic head and body are normal in appearance. The remainder of the pancreas is obscured from visualization by the overlying bowel gas. ABDOMINAL AORTA: No aortic aneurysm is seen. INFERIOR VENA CAVA: Visualized portions are normal. LIVER: The liver is hyperechogenic. The right lobe measures 19 cm in length. The left lobe measures 9 cm in length. The main portal vein is patent with a normal direction of flow and a continuous venous waveform. Shear wave liver elastography median stiffness is 1.7 m/s (reference: normal median stiffness is 1.3 m/s or less). IQR/median stiffness to assess sampling precision is 0.07 (reference: good quality data set is IQR/median stiffness of 0.15 or less). GALLBLADDER: There is an echogenic shadowing stone in the gallbladder. There is no gallbladder wall thickening. COMMON BILE DUCT: Normal in caliber measuring 0.2 cm in diameter. RIGHT KIDNEY: No hydronephrosis. No renal calculi or focal parenchymal lesions. The kidney measures 12 cm in maximum dimension. LEFT KIDNEY: There is no hydronephrosis. There is a 2 mm and a 9 mm echogenic focus with posterior acoustic shadowing consistent with a stone in the lower pole. Additionally, there is a 5 mm hyperechogenic focus in the cortex of the mid kidney without posterior acoustic shadowing probably representing an angiomyolipoma. The kidney measures cm in maximum dimension. SPLEEN: Unremarkable. The spleen measures 11 cm in maximum dimension. FREE FLUID: None seen. US/US abdomen comp w elastography IMPRESSION: The liver is echogenic suggesting underlying hepatic steatosis and/or diffuse hepatic parenchymal disease. Also, the liver is likely enlarged. Liver elastography: Measurements are suggestive of compensated advanced chroniic liver disease but need further test for confirmation. Nephrolithiasis involving the left kidney There is an indeterminate 5 mm echogenic lesion in the midportion of the left kidney that likely represents an angiomyolipoma. Consider CT or MRI abdomen to confirm. REFERENCE: Society of Radiologists in Ultrasound Liver Stiffness Thresholds (2020): LIVER STIFFNESS THRESHOLDS: *Liver Stiffness equal or less than 1.3 m/s: High probability of being normal. *Liver Stiffness less than 1.7 m/s: In the absence of other known clinical signs, rules out compensated advanced chronic liver disease. *Liver Stiffness 1.7-2.1 m/s: Suggestive of compensated advanced chronic liver disease but need further test for confirmation. *Liver Stiffness over 2.1 m/s: Rules in compensated advanced chronic liver disease. *Liver Stiffness over 2.4 m/s: Suggestive of clinically significant portal hypertension. QUALITY OF DATA SET: *IQR/Median value equal or less than 0.15 implies a quality data set. *IQR/Median value over 0.15 implies a poor quality data set. SIGNIFICANT CHANGE FROM PRIOR EXAM: Significant change if liver stiffness measurement is 10% or greater from prior exam. OTHER CONSIDERATIONS: The stage of liver fibrosis may be overestimated in the setting of acute hepatitis, liver inflammation, elevated liver function tests, hepatic vascular congestion, obstructive cholestasis, non-fasting state, and infiltrative diseases such as amyloidosis and lymphoma. In some patients with NAFLD, the liver stiffness thresholds for compensated advanced chronic liver disease may be lower. In causes other than viral hepatitis and NAFLD, liver stiffness thresholds are not well established. Electronically signed by: Derick Galicia MD 01/03/2025 10:27 AM EDT
--- OUTSIDE RECORDS SUMMARY | 2025-01-03 08:02 | XMS_ITS | Clinical Summary ---
Author Organization [facility] Address [address] [place] [address] Phone Care Team Providers Care Adjunct Instructor In Economics Name Role Phone Haydee Fraga MD Unavailable [phone] Encounters Date Type Department Care Team Description 12/01/2024 8:30 AM EDT - 12/01/2024 11:59 PM EDT Hospital Encounter Department of Radiology [address] [facility] [place] [address] Luz Maria Ovalle NP Fatty liver disease, [...] Vascular and Endovascular Surgery [address] [facility] [address] [place] [id number] Javid Jerome MD [address] [place] [address] Health Maintenance Due Date Last Done Comments [...] 12/01/2024 1:51 PM us Luz Maria Ovalle LACQUERER IMG US ORDERABLES Final Resu lt from Last 3 Months Care Teams Adjunct Instructor In Economics Relationship Specialty Start Date End Date Haydee Fraga MD [address] [place] [address] PCP - Insurance 11/30/24
--- OUTSIDE RECORDS SUMMARY | 2025-01-03 08:02 | XMS_ITS | Clinical Summary ---
Author Organization [facility] Address [address] [place] [address] Care Team Providers Care Ui Ux Developer Name Role Phone [facility], John trujillo Care Provider Allergies No known active allergies Medications doxycycline hyclate (VIBRAMYCIN) 100 mg capsule Take 1 capsule (100 mg total) by mouth 2 times a day. 20 capsule 11/13/2023 Active Social History Tobacco Use Types Packs/Day Years [...] complete this topic Procedures * Due to [place] [employer] law, this organization might not be sharing negative HIV tests. Procedure Name Priority Date/Time Associated Diagnosis Comments BASIC METABOLIC PANEL STAT 11/13/2023 1:21 AM EDT from Last 3 Months or Most Recently Relevant to Health Maintenance Results * Due to [place] [employer] law, this organization might not be sharing negative HIV tests. * (ABNORMAL) BMP - Basic Metabolic Panel (11/13/2023 1:21 AM EDT) NA 141 135 - 145 mmol/L 11/13/2023 2:00 AM EDT [facility] K 4.5 3.5 - 5.3 mmol/L 11/13/2023 2:00 AM EDT [facility] Cl 105 98 - 107 mmol/L 11/13/2023 2:00 AM EDT [facility] CO2 24 24 - 32 mmol/L 11/13/2023 2:00 AM EDT [facility] BUN 11 7 - 23 mg/dL 11/13/2023 2:00 AM EDT [facility] Creatinine 0.73 0.60 - 1.30 mg/dL 11/13/2023 2:00 AM EDT [facility] Glucose 109(H) 65 - 99 mg/dL 11/13/2023 2:00 AM EDT [facility] Calcium 9.6 8.6 - 10.5 mg/dL 11/13/2023 2:00 AM EDT [facility] Anion Gap 12 5 - 15 11/13/2023 2:00 AM EDT [facility] eGFR >90 >=60 mL/min/1. 73m2 11/13/2023 2:00 AM EDT [facility] Comment:The estimated glomer ular filtration rate [...] Matson MD LAB BLOOD ORDERABLES Final Result [facility] [address] [place] [address], from Last 3 Months or Most Recently Relevant to Health Maintenance Insurance HSNO/FREE CARE Care Teams Ui Ux Developer Relationship Specialty Start Date End Date [facility] [address] [place] [address] PCP - General 08/21/23
--- OUTSIDE RECORDS SUMMARY | 2025-01-03 08:02 | XMS_ITS | Encounter Summary ---
Author Organization [facility] Address [address] [place] [address] Care Team Providers Care Construction Code Administrator Name Role Phone [facility] Encounter Details Date Type Department Care Team (Late st Contact Info) Description 08/21/2023 Community Orders [facility] EpicCare Link [address] [place] [address] Kyleigh Donis MD [address] [place] [address] Symptomatic varicose veins of both lower extremities [...] documented as of this encounter Care Teams Construction Code Administrator Relationship Specialty Start Date End Date [facility] [address] [place] [address] PCP - General 08/21/23 documented as of this encounter
--- OUTSIDE RECORDS SUMMARY | 2025-01-03 08:02 | XMS_ITS | Encounter Summary ---
Author Organization [facility] Address [address] [place] [address] Care Team Providers Care Photo Manager Name Role Phone [facility], John Valadez ronnie Care Provider Reason for Referral * Diagnostic Imaging (Routine) - Closed Specialty Diagnoses / Procedures Referred By Brandon brizuela Referred To Contact Diagnoses Elevated liver enzymes Procedures US Limited Abdomen Single Organ US Abdomen Complete, Doppler Lmtd Matthew Walker MD Phone: tel: fax: Referral ID Status Reason Start Date Expiration Date Visits Re quested Visits Authorized [id number] Closed 04/01/2023 09/30/2024 1 1 Encounter Details Date Type Department Care Team (Late st Contact Info) Description 04/01/2023 Community Orders [facility] EpicCare Link [address] [place] [address] Matthew Walker MD [address] [place] [address] Elevated liver enzymes (Primary Dx) Social History [...] of this encounter Results * Due to [place] state law, this organization might not be [...] to obtain the completed interpretation. Workstation ID: [id number] Narrative 11/01/2023 1:27 AM EDT EXAMINATION: Limited right upper quadrant ultrasound with color Doppler. INDICATION: Abnormal liver enzymes TECHNIQUE: Real-time sonographic evaluation of the right upper quadrant with color Doppler evaluation is performed and help desk representative static images and multiple cine captures [...] caliber intrahepatic segment, patent Resulting Agency Comment [id number] Procedure Note Sudha, Ivory Hernandez MD - 11/01/2023 EXAMINATION: Limited right upper quadrant ultrasound with color Doppler. INDICATION: Abnormal liver enzymes TECHNIQUE: Real-time sonographic evaluation of the right upper quadrantwith color Doppler evaluation is performed and help desk representative staticimages and multiple cine captures are [...] possible to obtain thecompleted interpretation. Workstation ID: [id number] us Matthew Cheema MD IMG US PROCEDURES [...] documented as of this encounter Care Teams Photo Manager Relationship Specialty Start Date End Date [facility] [address] [place] [address] PCP - General 08/21/23 documented as of this encounter
== END 2025-01-03 07:59 | disposition home or self-care (01) ==
LOC: HO.US 07:58
PROVIDERS: PCP Family Medicine; Visit Provider Surgery
DX: E66.01 Morbid (severe) obesity due to excess calories (principal); I10 Essential (primary) hypertension
CPT/HCPCS: 76700; 76981

== ENCOUNTER → 2025-01-03 08:01 | Outpatient (BNV) | payer OTHER, SELFPAY | PROVIDERS: PCP Family Medicine; Visit Provider Radiology Diagnostic Radiology | DX: K76.89 Other specified diseases of liver (principal); N20.0 Calculus of kidney; N28.89 Other specified disorders of kidney and ureter | CPT/HCPCS: 76700 ==

== ENCOUNTER 2025-01-07 10:20 | Outpatient (AMB) | payer OTHER, SELFPAY ==
--- NOTE | 2025-01-07 10:05 | A.OFFWM_ITS ---
Intake Intake Visit Reasons: VIDEO BH Intake Part 2 Allergies No Known Allergies Allergy (Verified 02/03/25 14:12) PFSH Medical History Liver fibrosis Steatosis, liver Pre-diabetes DJD (degenerative joint disease) Hypertension Morbid obesity Surgical History (Updated 02/03/25 @ 14:13 by Val Gerber CMA) S/P gastric sleeve procedure Family History Mother Diabetes Hypertension Colon cancer Father Hypertension Social History Household Members: Family Housing: Apartment Are you a primary healthcare market consultant to a significant other at home: No Do you presently have visiting nurse or other home services: No Alcohol intake: current Alcohol intake frequency: holidays/special occasions only Patient Tobacco Use Status: Former Tobacco user Tobacco use type: Cigarette Cigarettes Per Day: 2 Behavioral Health Assessment Weight Management Therapy Therapy Notes Details PT is a 39 years old self-referred male, who presents for a second visit to complete BH assessment as part of surgical weight loss program. Presenting Concerns Referral Source WMP-Provider Reason for referral Completion of behavioral health assessment as part of process for weight-loss surgery. Precipitating Event Obesity Living Situation Current Living Situation Rent At risk of losing current housing? No Satisfied with current living situation? Yes Comments PT lives with his 2 siblings. Food/Weight/Diet Expectations of change PT started the program on 11/03/2024 at 314Lbs, initial goal is to lose 10% of his weight before surgery, which is about 30lbs. Ultimate weight goal: 284lbs before surgery. Weight as of 12/16/24 was 291Lbs. Weight as of 01/06/25 was 288Lbs Patient goals are to be at least 185Lbs. PT is implementing the following: Current meal plan: 2 protein shakes, 3 protein bars and one meal per day. Exercise plan: treadmill 20-30min 3-4 days at week. Scale: yes Communication w/ provider: , weekly. History/Relationship with food PT reports that he is lazy to cook, and when [place] the [place] was mostly eating fast food due to the long working days. He is not a picky eater and eats everything. Example of meals before starting the program: Breakfast: @11am - fast food, ice late with a eggs, chesse, collier sandwich. Lunch: @4pm - from a restaurant, rice, beans, chicken, soup and salad Dinner: @11pm - 3 eggs w/ bread, a sandwich with iced tea. Snacks: chips, fried foods. Drinks/Liquids: Cofee: 1 at day w/ sugar, cream and caramel syrup. Tea: 1 at day Iced tea w/ sugar. Soda: 1-2 times at week, 1 cup. Energy Drinks: none. Water: 4-5 bottles at day. Alcohol: 1-2 beers weekdays, on weekends 8-10 beers. History/Relationship with weight PT reports he has always been overweight, and obese since age 14. Has gained 72Lbs in the last 2 years when moved to the , he arrived at 242Lbs. In the last 10 years, the patient's Lowest weight was 198Lbs and highest 314Lbs. History/Relationship with dieting Diet with gym. OTC pills/V pills, shakes, herbalife. Semaglutide, Zepbound stop because had HBP and fast hearbeat. Binge Eating Do you frequently eat large amounts of food in short periods of time, not feeling physically hungry? Yes Do you feel out of control when you eat a large amount of food in a short period of time? No Do you eat large amounts of food rapidly and typically alone? No Night Eating Do you wake up at least once during the night to eat? No If you wake up in the night, do you find that it is necessary to eat something in order to fall back asleep? No Do you have little or no appetite in the morning and feel very hungry in the evening, often overeating between dinner and when you go to bed? Yes Social History Family history and relationship PT is in a long-term relationship 8 years ago. They don't have children. Her parents are live and both live in [facility], he has 2 younger siblings who live in the area with him. 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 Developmental history and status WNL. Social support Brothers, partner, parents. Community support None Scientology/Spirituality Anabaptist. Cultural/Ethnic information PT is from [place], [place] been in the [place] 2 [place] ago. PT is mainly Swazi-speaking. Legal Involvement and History Current or historical involvement with the legal system? None reported. Education Highest grade completed HS. 3 years college Preferred learning style Auditory and Learn by doing Currently enrolled in educational program? Yes Interested in further educational program? No Educational Interests/Skills PT is currently enrolled in College, finishing his bachelor's in business administration. 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 ) Wants help to find employment? No Meaningful activities Travel, short getaways, drive. Financial Situation Describe current financial situation Comfortable and Occasional struggle Financial assistance? None Service Service? No Mental Health and Addiction Treatment0 Current/Past substance abuse? No Comments Alcohol: 1 beer every other day, or a glass of wine. And more on weekends. Cigarettes/Tobacco: 1-2 at day. Cannabis/Edibles: None. Current/Past addictive behavior concerns? No Psychiatric history PT reports he has never been in counseling or any type of MH treatment. PT denies ever been in crisis or inpatient for mental health. There is no history and/or current concern about SI/Sa and self-harm or other harm. Medical and Physical Health Summary Additional Medical History not covered in history Varicose veins, he had a surgery recently. Sexual History concerns None reported. Physical exam in the last year? Yes (He sees his PCP every 4 months. ) Pain Screening Current pain? No Pain in the last few months? Yes Comments Knee pain. Medications Is the patient compliant with medications? Yes Does the patient have Azevedo Guardian in place? Not applicable Does the patient use complimentary health approaches? No Trauma/Abuse History History of trauma? No Questionnaires PHQ-9 Over the last 2 weeks, how often have you been bothered by any of the following problems? 1. Little interest or pleasure in doing things: not at all 2. Feeling down, depressed, or hopeless: not at all 3. Trouble falling or staying asleep, or sleeping too much: not at all 4. Feeling tired or having little energy: not at all 5. Poor appetite or overeating: not at all 6. Feeling bad about yourself - or that you are a failure or have let yourself or your family down: not at all 7. Trouble concentrating on things, such as reading the newspaper or watching television: not at all 8. Moving or speaking so slowly that other people could have noticed. Or the opposite - being so fidgety or restless that you have been moving around a lot more than usual: not at all 9. Thoughts that you would be better off or of hurting yourself in some way: not at all Total score: 0 Depression Screening Interpretation: Negative Depression Screening Done: Yes 34187 - PHQ-9 Billing: Yes Source: Developed by Drs. Edilberto Wheeler, Laura Reyez, Moreno Castillo and colleagues, with an educational tiffanie from [employer]. Assessment & Plan Assessment & Plan (1) Adjustment disorder: Code(s): F43.20 - Adjustment disorder, unspecified (2) Inappropriate diet or eating habits: Code(s): Z72.4 - Inappropriate diet and eating habits (3) Pre-bariatric surgery psychological evaluation: Code(s): Z71.89 - Other specified counseling Plan Following a comprehensive behavioral health assessment?including review of the Binge Eating Scale, PHQ-9, mental status evaluation, and patient self- report?there are currently no behavioral health contraindications to proceeding with bariatric surgery. The patient demonstrates appropriate insight, motivation, and psychological readiness for the procedure. No active psychiatric symptoms or maladaptive eating behaviors were identified that would impede surgical outcomes at this time. The patient is cleared from a behavioral health perspective to proceed with bariatric surgery and documentation can be submitted for insurance approval as indicated. PT will return for a follow-up behavioral health visit 1?4 weeks postoperatively to monitor psychological adjustment, reinforce coping strategies, and screen for any emerging concerns such as mood changes, adjustment difficulties, or disordered eating patterns. Additional behavioral health support will be provided as needed based on postoperative assessment. Next norbert: 1-4 weeks PO. Telehealth Telehealth Telehealth Platform: Doximity Location of provider rendering services: practice address Location of patient: address on file Patient Identification confirmed using: Name, : Yes Telehealth method: video Patient verbally consented to treatment: Yes Patient verbally consented to billing insurance company: Yes Patient informed of any privacy concerns related to visit: Yes Minutes spent on Phone/Video with Pt.: 60 [place] [address] Tele Psytx >53 mins Patient Type Established Diagnoses Adjustment disorder F43.20 Inappropriate diet or eating habits Z72.4 Pre-bariatric surgery psychological evaluation Z71.89 Additional Codes PHQ-9 - 56472 - PHQ-9 Billing: Yes ([id number]) Time Spent (min) 60
== END 2025-01-07 11:03 | disposition home or self-care (01) ==
LOC: HO.HBST 10:20
PROVIDERS: PCP Family Medicine; Visit Provider Counselor Mental Health
DX: F43.20 Adjustment disorder, unspecified (principal); Z72.4 Inappropriate diet and eating habits; Z71.89 Other specified counseling
CPT/HCPCS: 90837

== ENCOUNTER 2025-01-22 08:28 | Outpatient (REF) | payer OTHER, SELFPAY ==
--- OUTSIDE RECORDS SUMMARY | 2025-01-22 08:32 | XMS_ITS | Clinical Summary ---
Author Organization [facility] Address [address] [place] [address] Care Team Providers Care Certified Dietary Manager Name Role Phone [facility], John trujillo Care Provider Allergies [...] - 19+ 3-dose series) 04/25/2024 11/21/2023, 10/24/2023 COVID-19 Vaccine (2 - 2024- season) 2024 02/03/2024 Influenza Vaccine (#1) 2024 02/03/2024 DTaP,Tdap,and Td Vaccines (2 - Td or Tdap) 02/02/2034 02/03/2024 RSV Vaccine (60+ years old and patients) (1 - 1-dose 75+ series) 2061 Diabetes Screening Discontinued 11/13/2023 Pneumococcal Vaccine: Pediatric (0-5 Years) and At-Risk Patients (6-50 Years) Aged Out No longer eligible b ased on patient's age to complete this topic Procedures * Due to [place] [employer] law, this organization might not be sharing negative HIV tests. Procedure Name Priority Date/Time Associated Diagnosis Comments BASIC METABOLIC PANEL STAT 11/13/2023 1:21 AM EDT from Last 3 Months or Most Recently Relevant to Health Maintenance Results * Due to [place] [employer] law, this organization might not be sharing negative HIV tests. * (ABNORMAL) BMP - Basic Metabolic Panel (11/13/2023 1:21 AM EDT) NA 141 135 - 145 mmol/L 11/13/2023 2:00 AM EDT [facility] K 4.5 3.5 - 5.3 mmol/L 11/13/2023 2:00 AM EDT [facility] Cl 105 98 - 107 mmol/L 11/13/2023 2:00 AM EDT [facility] CO2 24 24 - 32 mmol/L 11/13/2023 2:00 AM EDT [facility] BUN 11 7 - 23 mg/dL 11/13/2023 2:00 AM EDT [facility] Creatinine 0.73 0.60 - 1.30 mg/dL 11/13/2023 2:00 AM EDT [facility] Glucose 109(H) 65 - 99 mg/dL 11/13/2023 2:00 AM EDT [facility] Calcium 9.6 8.6 - 10.5 mg/dL 11/13/2023 2:00 AM EDT [facility] Anion Gap 12 5 - 15 11/13/2023 2:00 AM EDT [facility] eGFR >90 >=60 mL/min/1. 73m2 11/13/2023 2:00 AM EDT [facility] Comment:The estimated glomer ular filtration [...] Matson MD LAB BLOOD ORDERABLES Final Result [facility] [address] [place] [address], from Last 3 Months or Most Recently Relevant to Health Maintenance Insurance HSNO/FREE CARE Care Teams Certified Dietary Manager Relationship Specialty Start Date [facility] [address] [place] [address] PCP - General 08/21/23
--- OUTSIDE RECORDS SUMMARY | 2025-01-22 08:32 | XMS_ITS | Clinical Summary ---
Author Organization [facility] Address [address] [place] [address] Phone Care Team Providers Care Electrode Turner And Finisher Name Role Phone Haydee Fraga MD Unavailable [phone] Encounters Date Type Department Care Team Description 12/01/2024 8:30 AM EDT - 12/01/2024 11:59 PM EDT Hospital Encounter Department of Radiology [address] [facility] [place] [address] Luz Maria Ovalle NP Fatty liver disease, [...] 3: 43 PM EDT Plan of Treatment Health Maintenance Due [...] 3-dose SCD M series) 2013 COVID-19 Vaccine (2 - 2024-2 6 season) 2024 02/03/2024 INFLUENZA VACCINE (#1) 2024 02/03/2024 Zoster Vaccine (1 of 2) 2036 IPV [...] 12/01/2024 1:51 PM us Luz Maria Ovalle SUPERVISOR SPECIAL SERVICES IMG US ORDERABLES Final Resu lt from Last 3 Months Care Teams Electrode Turner And Finisher Relationship Specialty Start Date End Date Haydee Fraga MD [address] [place] [id number] PCP - Insurance 11/30/24
--- OUTSIDE RECORDS SUMMARY | 2025-01-22 08:33 | XMS_ITS | Encounter Summary ---
Author Organization [facility] Address [address] [place] [address] Care Team Providers Care Refractory Mixer Name Role Phone [facility], John Valadez ronnie Care Provider Reason for Referral * Diagnostic Imaging (Routine) - Closed Specialty Diagnoses / Procedures Referred By Brandon brizuela Referred To Contact Diagnoses Elevated liver enzymes Procedures US Limited Abdomen Single Organ US Abdomen Complete, Doppler Lmtd Matthew Walker MD Phone: tel: fax: Referral ID Status Reason Start Date Expiration Date Visits Re quested Visits Authorized [id number] Closed 04/01/2023 09/30/2024 1 1 Encounter Details Date Type Department Care Team (Late st Contact Info) Description 04/01/2023 Community Orders [facility] EpicCare Link [address] [place] [address] Matthew Walker MD [address] [place] [address] Elevated liver enzymes (Primary Dx) Social History [...] of this encounter Results * Due to [place] state law, this organization might not be [...] to obtain the completed interpretation. Workstation ID: [id number] Narrative 11/01/2023 1:27 AM EDT EXAMINATION: Limited right upper quadrant ultrasound with color Doppler. INDICATION: Abnormal liver enzymes TECHNIQUE: Real-time sonographic evaluation of the right upper quadrant with color Doppler evaluation is performed and sales representative advertising static images and multiple cine captures are [...] caliber intrahepatic segment, patent Resulting Agency Comment [id number] Procedure Note Sudha, Ivory Hernandez MD - 11/01/2023 EXAMINATION: Limited right upper quadrant ultrasound with color Doppler. INDICATION: Abnormal liver enzymes TECHNIQUE: Real-time sonographic evaluation of the right upper quadrantwith color Doppler evaluation is performed and sales representative advertising staticimages and multiple cine captures are submitted. [...] possible to obtain thecompleted interpretation. Workstation ID: [id number] us Matthew Cheema MD IMG US PROCEDURES [...] documented as of this encounter Care Teams Refractory Mixer Relationship Specialty Start Date End [facility] [address] [place] [address] PCP - General 08/21/23 documented as of this encounter
--- OUTSIDE RECORDS SUMMARY | 2025-01-22 08:34 | XMS_ITS | Encounter Summary ---
Author Organization [facility] Address [address] [place] [address] Care Team Providers Care Welding Machine Operator Resistance Name Role Phone [facility] Encounter Details Date Type Department Care Team (Late st Contact Info) Description 08/21/2023 Community Orders [facility] EpicCare Link [address] [place] [address] Kyleigh Donis MD [address] [place] [address] Symptomatic varicose veins of both lower extremities [...] documented as of this encounter Care Teams Welding Machine Operator Resistance Relationship Specialty Start Date End Date [facility] [address] [place] [address] PCP - General 08/21/23 documented as of this encounter
[2025-01-22 08:46] LABS: MANUAL DIFF FLAG NO
[2025-01-22 09:53] LABS: Hematocrit 46.6 % (42.0-52.0); Hemoglobin 15.3 g/dl (14.0-18.0); Imm Gran Abs Auto 0.02 X10*3/uL (0.00-0.03); Imm Gran Pct Auto 0.3 % (0.0-0.4); Lymphocytes Absolute Auto 2.4 X10*3/uL (1.2-4.9); Mean Corpuscular HGB Conc 32.8 g/dl (31.0-36.0); Mean Corpuscular Hemoglobin 28.0 pg (27.0-33.0); Mean Corpuscular Volume 85.2 fL (80.0-98.0); NRBC Abs Auto 0.000 X10*3/uL (0.0-0.012); NRBC Pct Auto 0.0 /100WBC (0.0-0.2); Platelet Count 312 X10*3/uL (160-400); Red Blood Count 5.47 X10*6/uL (4.60-5.80); White Blood Count 7.6 X10*3/uL (4.8-10.8)
[2025-01-22 10:34] LABS: Alanine Aminotransferase 65 U/L (0-40); Albumin Level 4.9 g/dL (3.5-5.0); Alkaline Phosphatase 107 U/L (39-117); Anion Gap 12 (12-20); Aspartate Amino Transferase 35 U/L (5-37); Blood Urea Nitrogen 15 mg/dL (9-16); Calcium 9.3 mg/dL (8.4-10.2); Carbon Dioxide 27 mmol/L (22-29); Chloride 105 mmol/L (96-108); Cholesterol 163 mg/dL (<200); Estimated Glomerular Filt Rate > 60; HDL Cholesterol 44 mg/dL (>40); Potassium 4.4 mmol/L (3.3-5.1); Sodium 140 mmol/L (135-145); Total Protein 8.3 g/dL (6.5-8.0); Triglycerides 85 mg/dL (<150)
[2025-01-22 10:37] LABS: INTERNATIONAL NORM RATIO 1.0 (0.9-1.1); Prothrombin Time 11.8 SEC (10.9-12.4)
[2025-01-22 10:39] LABS: Partial Thromboplastin Time 34.8 SEC (26.7-34.1)
== END 2025-01-22 08:29 | disposition home or self-care (01) ==
LOC: HO.LAB 08:28
PROVIDERS: Visit Provider Surgery
DX: Z51.81 Encounter for therapeutic drug level monitoring (principal); E66.01 Morbid (severe) obesity due to excess calories
CPT/HCPCS: 36415; 80053; 80061; 83036; 83525; 84443; 85025; 85610; 85730; 86140; 86850; 86900; 86901

== ENCOUNTER 2025-01-24 08:02 | Outpatient (AMB) | payer OTHER, SELFPAY ==
--- NOTE | 2025-01-24 09:59 | MHC.OFFVISWM ---
VS Expanded 01/24/25 10:02 Height 5 ft 7 in Weight 286 lb 6 oz BMI 44.8 Body Fat % 44.9 Fat Free Mass 157.8 Visceral Fat Rating 23 Body Water % 39.8 Basal Metabolic Rate/Score 1,917 Intake Visit Reasons: TV Pre Op LSG 01/27/25 *WIRE DRAWING DIE MAKER* Order Processing Clerk Required: Yes Order Processing Clerk Services: Order Processing Clerk Present Information Interpreted: clinical only Allergies No Known Allergies Allergy (Verified 01/24/25 10:01) Medication List - Last Reconciled 01/24/25 by Papi Vences MD aspirin (Adult Aspirin Regimen) 81 mg PO DAILY cholecalciferol (vitamin D3) 125 mcg PO DAILY irbesartan 300 mg PO DAILY ondansetron 4 mg PO Q12H pantoprazole 40 mg PO DAILY polyethylene glycol 3350 17 grams PO DAILY sucralfate 10 mL PO BID vitamin A palmitate 3,000 mcg PO DAILY HPI HPI TV Pre Op LSG 01/27/25 *WIRE DRAWING DIE MAKER*: Details: Start time: 7.30am, End time: 8am ?I spent 25 minutes speaking with the patient on the phone plus an additional 5 minutes reviewing and updating records for a total of 30 minutes HPI Comments Details: This is the preop visit for laparoscopic sleeve gastrectomy PFSH Medical History (Updated 12/02/24 @ 20:53 by Papi Vences MD) DJD (degenerative joint disease) Hypertension Morbid obesity Surgical History No history of previous surgery Family History (Updated 08/25/24 @ 14:31 by Val Gerber CMA) Mother Diabetes Hypertension Colon cancer Father Hypertension Social History (Updated 08/25/24 @ 14:30 by Val Gerber CMA) Are you a primary home care provider to a significant other at home: No Do you presently have visiting nurse or other home services: No Alcohol intake: current Alcohol intake frequency: holidays/special occasions only Patient Tobacco Use Status: Current everyday Tobacco user Tobacco use type: Cigarette Cigarettes Per Day: 2 Telehealth Telehealth Telehealth Platform: Telephone Location of provider rendering services: practice address Location of patient: address on file Patient Identification confirmed using: Name, : Yes Telehealth method: voice only Patient verbally consented to treatment: Yes Patient verbally consented to billing insurance company: Yes Patient informed of any privacy concerns related to visit: Yes Minutes spent on Phone/Video with Pt.: 30 Assessment & Plan Assessment & Plan (1) Morbid obesity: Code(s): E66.01 - Morbid (severe) obesity due to excess calories Category: Medical Plan: 1. Plan for sleeve gastrectomy, including upper endoscopy.?All tests?have been?performed and reviewed, and the patient is cleared for surgery. If diaphragmatic or ventral hernias are present at the time of surgery, these will also be repaired laparoscopically. Surgery does not replace the need to change your?lifestyle?, which is the cause of obesity. Surgery motivates you to try again, reduces your appetite,?facilitates?the transition to a better lifestyle, and doubles your weight loss compared to lifestyle changes without surgery. You will need to follow a liquid diet with protein shakes for two weeks prior to surgery to maximize weight loss and improve your nutritional status for a better recovery from surgery, and also for the first two weeks after surgery to allow your stomach to heal before introducing other foods. After the first two weeks, we will introduce protein bars and soft foods such as scrambled eggs, cottage cheese, and yogurt, and from the sixth?week?, meat, fish, and cooked vegetables in small amounts. Eventually, you should be able to eat everything in small amounts. Side effects such as nausea, vomiting, heartburn, or abdominal pain are not common in the practice unless you fail to follow instructions. This operation requires a lifelong commitment to following our practice and communicating with me. You will lose?a lot of?weight and experience side effects if you don't communicate or?follow?instructions. Complications are rare and in our practice are about 1/10 of the national average. However, you can develop bleeding that may require a transfusion (this hasn't happened for?a year?in the practice), you can from complications (we haven't had any deaths in the practice), and infections. Infections are usually the result of a breakdown in communication or a failure to understand or follow instructions correctly. They are difficult to treat, can occur within the first 6 weeks, may require hospitalization for weeks or even months, may result in inability to eat by mouth, and may require drains and surgery to correct the problem. Other risks and complications include possible conversion to an open procedure, leaks, small bowel obstruction, blood clots, heart or lung complications,?as well as long-?term complications such as ulcers, insufficient weight loss, and vitamin deficiencies.So far, she's proven to be an excellent communicator and very compliant with all our instructions, achieving considerable weight loss. I think she's an excellent candidate and is ready.? Preoperative prescriptions were provided, and the purpose of each was explained. They must be purchased before surgery. Start taking pantoprazole right away, just as you get it at the pharmacy, one pill a day. Sucralfate and Zofran are used after surgery as needed. 3. Bowel Prep: Take 7 packets of Miralax, mixing each?with an?8-ounce glass of water, Crystal Light, Gatorade Zero, or Propel, on 01/25/25 and the same amount on 01/26/25. Start with one packet of Miralax in 8 ounces of water, Crystal Light, Gatorade Zero, or Propel as early as possible, and do them one after the other until finished. Continue the protein shakes during bowel prep. 4.?You need?to purchase 1 oz medicine cups. 5. You need to buy liquid Tylenol for children to control postoperative?pain?. 6. You must stop taking aspirin starting today, 01/21/25. Avoid aspirin, Motrin, Advil, Aleve, ibuprofen, and Naproxyn. It's okay to take Tylenol. 7. She needs to buy Celebrate multivitamins at the hospital gift shop. 8. I will do a basic pre-operative blood test TOMORROW on an empty stomach for 12 hours.? 10.?The importance of adherence to?postoperative follow-up and recommendations was emphasized and she understands this. 11. Discontinue food and bars starting tomorrow 01/22/25 and continue with 4 Premier Protein Shakes (8 oz per shake and NOT the entire bottle) from 10 am to 12 pm, 1 pm to 3 pm, 4 pm to 6 pm and 7 pm to 9 pm and one FULL BOTTLE Premier Protein Shake from 10 pm to 1 am 12. No soups, broths or V8 13. The patient's medical history was reviewed, and he is considered to be at low risk for postoperative DVT; therefore, DVT prophylaxis is not deemed necessary. Postoperative travel was reviewed. The patient has not reported any travel plans for the first 30 days after surgery and has been informed that, during this period, any bus, plane, train, or car travel lasting more than 2 hours is contraindicated due to the potential for developing blood clots due to immobility. Any travel should include 10-minute ambulation periods every 2 hours. The patient was instructed to consult with his bariatric surgeon regarding any travel plans during this period.? 14. Starting tomorrow, please check your blood pressure every morning. If your blood pressure is: Below 120/70: Do not take Irbesartan. From 121/71 to 130/80: Take HALF the amount of Irbesartan. Over 131/81: Take the full Irbesartan tablet. 15. Please take the following medications on the day of surgery: IRBESARTAN only if blood pressure is high enough to warrant it. 17. No smoking, vaping, or marijuana use until surgery and for at least the first 4 weeks. Only nicotine patches are allowed. 18. Send me your weight measurements on , the day of surgery, before you go to the hospital. 19. Avoid any oral steroids for any reason. Let me know if anyone prescribes them for you. 20. These instructions prevail over any other instructions you may have read in the manual, seen in videos or classes, or received from any other provider. In case of conflict, follow the instructions above and nothing else.
[2025-01-24 10:02] VITALS: BMI 44.8
== END 2025-01-24 10:04 | disposition home or self-care (01) ==
PROVIDERS: Visit Provider Surgery
DX: E66.01 Morbid (severe) obesity due to excess calories (principal)
CPT/HCPCS: 99214

== ENCOUNTER 2025-01-27 07:45 | Inpatient (IN) | payer OTHER, SELFPAY ==
--- NOTE | 2025-01-24 15:03 | HO.ANESPROP2 ---
Documented by User: Marycarmen Guzmán NP 01/24/25 15:06 HPI - Anesthesia Eval Consult details Narrative: 39yo M for Gastrectomy Sleeve,EGD,possible Diaphragmatic Hernia,possible Ventral Hernia,possible Open BMI 45 PMFSH Active Problems Active Problems: All Active Problems Vitamin D deficiency (Acute) Vitamin A deficiency (Acute) DJD (degenerative joint disease) (Acute) Hypertension (Acute) Morbid obesity (Acute) Past Medical History Medical History Liver fibrosis Steatosis, liver Pre-diabetes DJD (degenerative joint disease) Hypertension Morbid obesity Family History Family History Mother Diabetes Hypertension Colon cancer Father Hypertension Family history of problems with anesthesia: No Surgical History Surgical History No history of previous surgery History of Problems with Anesthesia: No Social History Social History Are you a primary managed care specialist to a significant other at home: No Do you presently have visiting nurse or other home services: No Alcohol intake: current Alcohol intake frequency: holidays/special occasions only Patient Tobacco Use Status: Current everyday Tobacco user Tobacco use type: Cigarette Cigarettes Per Day: 2 Use of substances other than those prescribed or required for medical reasons: No Have you been hit, kicked, punched, or otherwise hurt by someone within the past year? If so, by whom?: No Spiritual Healthcare Practices: no Caodaism Healthcare Practices: no Cultural Healthcare Practices: no Are you DNR?: No Advance Directives: No Advance Directives Information Provided: No Advance Directives on File: No Meds Allergies Allergy/AdvReac Type Severity Reaction Status Date / Time No Known Allergies Allergy Verified 01/24/25 10:01 Home Medications ?Medication ?Instructions ?Recorded ?Confirmed ?Last Taken ?Type aspirin 81 mg tablet,delayed 81 mg PO DAILY 08/25/24 01/27/25 12/28/24 History release (Adult Aspirin Regimen) irbesartan 300 mg tablet 300 mg PO DAILY 08/25/24 01/27/25 01/26/25 History Exam Pertinent Lab Results Pertinent Lab Results: Laboratory Tests 01/22/25 08:44 WBC 7.6 Hgb 15.3 Hct 46.6 Plt Count 312 Sodium 140 Potassium 4.4 Chloride 105 Carbon Dioxide 27 BUN 15 Creatinine 0.64 Narrative Narrative: EKG 10/2024 Vent. Rate : 67 BPM Atrial Rate : 67 BPM P-R Int : 176 ms QRS Dur : 120 ms QT Int : 390 ms P-R-T Axes : 20 17 13 degrees QTcB Int : 412 ms Normal sinus rhythm Normal ECG No previous ECGs available Assessment and Plan Assessment Anesthesia Assessment: Chart Reviewed Final Anesthetic Review Family History of Problems with Anesthesia: No History of Problems with Anesthesia: No Documented by User: Ivory Casarez MD 01/27/25 08:29 [facility] Past Medical History Medical History Liver fibrosis Steatosis, liver Pre-diabetes DJD (degenerative joint disease) Hypertension Morbid obesity Family History Family History Mother Diabetes Hypertension Colon cancer Father Hypertension Surgical History Surgical History No history of previous surgery Social History Social History Are you a primary managed care specialist to a significant other at home: No Do you presently have visiting nurse or other home services: No Alcohol intake: current Alcohol intake frequency: holidays/special occasions only Patient Tobacco Use Status: Current everyday Tobacco user Tobacco use type: Cigarette Cigarettes Per Day: 2 Use of substances other than those prescribed or required for medical reasons: No Have you been hit, kicked, punched, or otherwise hurt by someone within the past year? If so, by whom?: No Spiritual Healthcare Practices: no Caodaism Healthcare Practices: no Cultural Healthcare Practices: no Are you DNR?: No Advance Directives: No Advance Directives Information Provided: No Advance Directives on File: No Meds Allergies Allergy/AdvReac Type Severity Reaction Status Date / Time No Known Allergies Allergy Verified 01/24/25 10:01 Home Medications ?Medication ?Instructions ?Recorded ?Confirmed ?Last Taken ?Type aspirin 81 mg tablet,delayed 81 mg PO DAILY 08/25/24 01/27/25 12/28/24 History release (Adult Aspirin Regimen) irbesartan 300 mg tablet 300 mg PO DAILY 08/25/24 01/27/25 01/26/25 History Exam Airway Mallampati Class: III Loose/Missing/Broken Teeth: No Heart: RRR Lungs: CTA Assessment and Plan Assessment Anesthesia Assessment: Anesthesia Plan Discussed Final Anesthetic Review NPO: Yes ASA Class: III Final Preanesthetic Review: Meds/Allgs Chart Reviewed, Consent Obtained/Reviewed and Anes Risks/Benef Reviewed Patient Risk: Intermediate Procedure Risk: Intermediate Anesthetic Plan Anesthetic Plan: GA Disposition: Standard PACU
[2025-01-25 09:37] VITALS: BMI 44.8
[2025-01-27] VITALS (13 sets, daily range): BP systolic 129–166; BP diastolic 66–102; PULSE 82–106; RESP 15–19; TEMP 36.1–37.3; O2SAT 89–99; BMI 43.4; BMI 42.1
[2025-01-27] MEDS: Lactated Ringers 1,000 ML 999 ML IV (06:30)
[2025-01-27] MEDS: Lactated Ringers 1,000 ML 100 ML IVCONT ×3 (07:15→20:28)
[2025-01-27] MEDS: Aprepitant 32 MG/4.4 ML VIAL IVPUSH (07:30)
--- NOTE | 2025-01-27 07:46 | MHC.SHP ---
Pre-Procedural Eval Section A - 24 Hr Update-Section A only Date of Service: 01/27/25 The patient is an INPATIENT: Yes The patient has been examined within 24 hours of the surgical procedure. The History & Physical has been completed within 30 days and I have reviewed it.: Yes Section B - Complete if H&P > 30 days Chief Complaint: Morbid (severe) obesity due to excess calories Relevant Family History (Specify if Yes): No Relevant Social History: None Present Medications: None Medical History: No relevant PMH History of Previous Operations: No relevant previous surgery Allergies: Allergies Allergy/AdvReac Type Severity Reaction Status Date / Time No Known Allergies Allergy Verified 01/24/25 10:01 Review of Systems Sugical H&P ROS: Negative: Constitution, Cardiovascular, Respiratory, Neurological, Psychiatric, Hem-Onc, Allergic/Immunologic, Gastrointestinal, Genitourinary, Musculoskeletal, Integumentary, Endocrine and Eyes/Ears/Nose/Throat Exam Surgical H&P Exam: Normal: HEENT, Normal: Heart, Normal: Lungs, Normal: Extremities, Normal: Abdomen, Normal: Skin and Normal: Neurological Plan Diagnosis/Plan: Unchanged I have reviewed the history and physical and performed a pertinent physical examination on my patient. No changes have occurred unless specified. Time Spent With Patient Time: Total time managing care of this patient today ____ minutes.
--- NOTE | 2025-01-27 07:46 | PM.OP ---
Brief Operative Note Date of Service: 01/27/25 Pre-op diagnosis: Morbid obesity with comorbidities (see below) Post-op diagnosis: same (& abdominal adhesions) Procedure: INITIAL PATIENT BMI ON PRESENTATION AT OUR OFFICE: 47.7 kg/m2 LAST BMI BEFORE SURGERY: 42 kg/m2 COMORBIDITIES: hypertension, liver steatosis, liver fibrosis, esophagitis ?The patient presented to the Weight Management Program with significant obesity that was negatively impacting the patient's comorbidities as listed above.? The program is a phased program with a special focus on preoperative medical weight management to promote substantial weight loss and prepare the patients for the second phase of the program: bariatric surgery. The patient participated in an intensive weekly lifestyle ?intervention and exercise program during which the patient ?has lost between the initial office visit and the last preoperative visit 27.4lbs, or 8.7% of initial actual body weight. It was deemed appropriate for the patient to now have bariatric surgery. In light of the current Covid-19 pandemic and the well documented strong association of obesity and increased risk of worse outcomes if infected with Covid-19 (REFERENCES:https://pubmed.ncbi.nlm.nih.gov/57477894/,?https://pubmed.ncbi.nlm.nih.gov/17709613/), any delay in undergoing bariatric surgery may lead to the patient's worsening health condition and increased?risk of more severe Covid-19 disease if infected. In addition a recent?study from [facility] published in [facility] Surgery on 03/26/2021 ([email or web address]:/[email or web address]) found that, among patients with obesity, substantial weight loss achieved with surgery was associated with improved outcomes of COVID-19 infection. The findings suggest that obesity can be a modifiable risk factor for the severity of COVID-19 infection. In addition, the patient met the BMI-criteria for bariatric surgery based on the BMI on initial presentation. The patient should not be penalized for achieving such weight loss because ?it is not sustainable long-term without surgical intervention and it was achieved in preparation for bariatric surgery ?under my direction and based on my published research ([email or web address]:/[email or web address]).pdf and?https://www.soard.org/article/D8404-4298(44)88750-X/pdf) ?that a 10% preoperative weight loss improves long-term weight loss after surgery and reduces perioperative complications.? Insurance carriers such as [facility] have endorsed my recommendations ?and have included in their policies criteria to include a 10% preoperative weight loss requirement. PROCEDURE: Esophago-gastroscopy, laparoscopic lysis of adhesions, laparoscopic sleeve gastrectomy and laparoscopic gastropexy INDICATIONS: This is a 39 year-old male who was electively scheduled for laparoscopic, possibly open sleeve gastrectomy. The risks and complications of the procedure were discussed with the patient in advance, particularly the possibility of ; pulmonary embolism; staple line leak; bleeding; GERD; cardiac, pulmonary, or renal complications; as well as long-term problems such as insufficient weight loss, vitamin deficiency, strictures, or ulcers. The patient understood all the risks, and was in agreement to proceed with surgery. DESCRIPTION OF PROCEDURE: After informed consent was obtained from the patient, the patient was given preoperative antibiotics, and was transferred to the operating room. After successful induction of general anesthesia, pneumatic compression devices were placed on both lower extremities. An upper endoscopy was performed next. The oropharynx and esophagus appeared to be within normal limits. There was no diaphragmatic hernia present. The stomach was entered. Then after all fluid and air were suctioned and the stomach was fully decompressed, the scope was withdrawn and secured in the mid esophagus. The patient was then prepped and draped in the usual sterile manner, and abdominal access was established at the right upper quadrant with the Lokesh technique. A 12 mm blunt port was inserted, and the abdomen was insufflated with CO2 to a pressure of 15 mmHg. Under direct visualization, additional ports were placed, specifically two 5 mm Versi-step ports to the left upper quadrant, and a 5 mm Versi-Step port to the right upper quadrant. 1% lidocaine plain was used to infiltrate all port sites as well as all fascia defects. There were adhesions in the abdomen involving the omentum and the left anterior abdominal wall. Those were lysed with the ultrasonic device. Following that, the patient was placed in a steep reverse Trendelenburg position. An additional 5 mm port was placed to the right flank for the Mediflex retractor that was used to retract the left lobe of the liver. The gastro-esophageal fat pad was opened with the ultrasonic device (Thunderbeat, Olympus) and the anterior esophagus and hiatus were exposed. The angle of His was opened with the ultrasonic device the fundus of the stomach from any diaphragmatic and splenic attachments. I then opened the gastrocolic ligament between the transverse colon and the greater curvature of the stomach with the ultrasonic device to enter the lesser sac and facilitate the ligation of the short gastric vessels. I started at a mid-point along the greater curvature and using the Thunderbeat, all short gastric vessels were divided all the way to the angle of His until the left jaqui was completely dissected at its entirety. I then divided the gastro-colic ligament distally to a distance of about 3-4 cm proximal to the pylorus. There were extensive congenital adhesions between the pancreas and posterior gastric wall. Those were lysed completely with the ultrasonic device. Adhesiolysis took approximately 45 min to complete. The stomach was then divided transversely with two Endo BRANDYN-45 purple and four BRANDYN-60 articulating purple loads using the DeluxeBox stapler and loads. Every effort was made that the gastric sleeve had a tubular shape and an even caliber throughout. Once the sleeve resection was completed, the staple line of the gastric sleeve was reinforced with Hemoclips. The resected stomach was retrieved without difficulty from the Lokesh port. A gastropexy was then performed in order to prevent postoperative GERD and partial gastric volvulus. Several interrupted 2.0 Surgidac sutures were placed between the sleeve's staple line and the previously divided greater omentum and gastro-colic ligament using the Endo-Stitch device. ?An upper endoscopy was performed. There was no narrowing at the GE junction. The scope was easily advanced all the way to the pylorus which was clearly visualized. There was no narrowing anywhere and the sleeve's caliber was even throughout. The sleeve's staple line was inspected and there was no evidence of ischemia, bleeding or dehiscence. At that point the gastroscope was withdrawn from the patient?s mouth while we were decompressing the bowel and the stomach from any remaining air. I looked into the lesser sac to see how the sleeve was situating and it was situating well. There was no bleeding from the staple line, spleen, or short gastric vessels. The Mediflex retractor was removed, and the undersurface of the liver was inspected and there was no bleeding. The patient was placed in supine position. I closed the fascial defect of the 12 mm port site with a figure of eight #1 Polysorb suture. Then 30cc Ropivacaine plain with 10 mg of Dexamethasone were used to infiltrate the fascial closure as well as all skin incisions. At this point, the abdomen was deflated, all ports were removed under direct vision, and no bleeding was noted from any of the port sites. The skin incisions were irrigated with saline and were closed with 4-0 absorbable monofilament sutures. Steri-Strips and OpSites were used to cover all incisions. The patient was extubated and was transferred in stable condition to the recovery room for further care. I was present and performed all [place] parts of the procedure. Ms. Villarreal was the first aid nurse. There were no residents to assist with this case. Joon Vences MD, PhD, FACS Surgeon: Papi Vences MD Anesthesia: GETA, local and other (TAP block) Was an Branch Controller used for this Procedure?: No Branch Controller: Angela Villarreal Estimated blood loss (mL): 10 IV fluids (mL): 2,200 Urine output (mL): 0 (No Love to record output) Pathology: other (1) Stomach, 2) Gastro-esophageal fat pad) Condition: stable Disposition: PACU
--- NOTE | 2025-01-27 07:50 | P.PNGS_ITS ---
Subjective Subjective Date of Service: 01/28/25 Interval history: Feels well. Mild incisional pain. She is tolerating phase 1 bariatric diet Physical Exam 2 Vital Signs: Vital Signs: Last Vital Signs Temp 99.1 F 01/27/25 06:13 Pulse 83 01/27/25 06:13 Resp 17 01/27/25 06:13 BP 140/88 H 01/27/25 06:13 Pulse Ox 97 01/27/25 06:13 O2 Del Method Room Air 01/27/25 06:13 BMI result Body Mass Index 43.4 GI: Inspection: Yes normal to inspection, Yes incision (clean, dry and intact) and Yes obesity Palpation (GI): Soft to palpation Extrem: Right lower extremity: normal to inspection (no calf tenderness) L eft lower extremity: normal to inspection (no calf tenderness) Objective Data Active Medications Lactated Ringer's (Lr) 1,000 mls @ 100 mls/hr IVCONT .Q10H LIZY Stop: 01/27/25 09:59 Last Admin: 01/27/25 06:19 Dose: 100 mls/hr Documented By: JAY Lactated Ringer's (Lr) 1,000 mls @ 999 mls/hr IV .Q1H1M LIZY Stop: 01/27/25 08:45 Last Admin: 01/27/25 06:30 Dose: 999 mls/hr Documented By: JAY Cefazolin Sodium/Dextrose (Ancef) 2 gm in 50 mls @ 100 mls/hr IV PREOP ONE Stop: 01/27/25 08:14 Labs 01/28/25 06:20 01/28/25 06:20 Procedures Date of Service Date of Service: 01/28/25 Progress Note: A&P Assessment and plan (1) Morbid obesity: Status: Acute Assessment and Plan: s/p laparoscopic sleeve gastrectomy, lysis of adhesions and gastropexy Doing well Will check am labs and if OK the patient will be discharged home (2) Hypertension: Status: Acute (3) DJD (degenerative joint disease): Status: Acute (4) Steatosis, liver: Status: Acute (5) Liver fibrosis: Status: Acute (6) Esophagitis: Status: Acute (7) Congenital intra-abdominal adhesions: Status: Acute (8) S/P laparoscopic sleeve gastrectomy: Status: Acute Time Spent With Patient Time: Total time managing care of this patient today ____ minutes. Quality Stroke Does the patient have a stroke diagnosis?: No VTE Prior VTE?: No VTE Risk Level:: Surgical - moderate VTE Device Contraindication: N/A - Device Ordered VTE Drug Contraindication: Treatment Not Indicated
--- OUTSIDE RECORDS SUMMARY | 2025-01-27 08:16 | XMS_ITS | Encounter Summary ---
Author Organization [facility] Address [address] [place] [address] Care Team Providers Care Organization Development Consultant Name Role Phone [facility] Encounter Details Date Type Department Care Team (Late st Contact Info) Description 08/21/2023 Community Orders [facility] EpicCare Link [address] [place] [address] Kyleigh Donis MD [address] [place] [address] Symptomatic varicose veins of both lower extremities [...] documented as of this encounter Care Teams Organization Development Consultant Relationship Specialty Start Date End Date [facility] [address] [place] [address] PCP - General 08/21/23 documented as of this encounter
--- OUTSIDE RECORDS SUMMARY | 2025-01-27 08:16 | XMS_ITS | Encounter Summary ---
Author Organization [facility] Address [address] [place] [address] Care Team Providers Care Respiratory Therapy Instructor Name Role Phone [facility], John Valadez ronnie Care Provider Reason for Referral * Diagnostic Imaging (Routine) - Closed Specialty Diagnoses / Procedures Referred By Brandon brizuela Referred To Contact Diagnoses Elevated liver enzymes Procedures US Limited Abdomen Single Organ US Abdomen Complete, Doppler Lmtd Matthew Walker MD Phone: tel: fax: Referral ID Status Reason Start Date Expiration Date Visits Re quested Visits Authorized [id number] Closed 04/01/2023 09/30/2024 1 1 Encounter Details Date Type Department Care Team (Late st Contact Info) Description 04/01/2023 Community Orders [facility] EpicCare Link [address] [place] [address] Matthew Walker MD [address] [place] [address] Elevated liver enzymes (Primary Dx) Social History [...] of this encounter Results * Due to [place] state law, this organization might not be [...] to obtain the completed interpretation. Workstation ID: [id number] Narrative 11/01/2023 1:27 AM EDT EXAMINATION: Limited right upper quadrant ultrasound with color Doppler. INDICATION: Abnormal liver enzymes TECHNIQUE: Real-time sonographic evaluation of the right upper quadrant with color Doppler evaluation is performed and data entry representative static images and multiple cine captures [...] caliber intrahepatic segment, patent Resulting Agency Comment [id number] Procedure Note Sudha, Ivory Hernandez MD - 11/01/2023 EXAMINATION: Limited right upper quadrant ultrasound with color Doppler. INDICATION: Abnormal liver enzymes TECHNIQUE: Real-time sonographic evaluation of the right upper quadrantwith color Doppler evaluation is performed and data entry representative staticimages and multiple cine captures are [...] possible to obtain thecompleted interpretation. Workstation ID: [id number] us Matthew Cheema MD IMG US PROCEDURES [...] documented as of this encounter Care Teams Respiratory Therapy Instructor Relationship Specialty Start Date End Date [facility] [address] [place] [address] PCP - General 08/21/23 documented as of this encounter
--- OUTSIDE RECORDS SUMMARY | 2025-01-27 08:16 | XMS_ITS | Clinical Summary ---
Author Organization [facility] Address [address] [place] [address] Care Team Providers Care Rotary Soil Stabilizer Operator Name Role Phone [facility], John trujillo Care Provider Allergies No known [...] this topic Procedures * Due to [place] Route4[employer] law, this organization might not be sharing negative HIV tests. Procedure Name Priority Date/Time Associated Diagnosis Comments BASIC METABOLIC PANEL STAT 11/13/2023 1:21 AM EDT from Last 3 Months or Most Recently Relevant to Health Maintenance Results * Due to [place] Route4[employer] law, this organization might not be sharing negative HIV tests. * (ABNORMAL) BMP - Basic Metabolic Panel (11/13/2023 1:21 AM EDT) NA 141 135 - 145 mmol/L 11/13/2023 2:00 AM EDT [facility] K 4.5 3.5 - 5.3 mmol/L 11/13/2023 2:00 AM EDT [facility] Cl 105 98 - 107 mmol/L 11/13/2023 2:00 AM EDT [facility] CO2 24 24 - 32 mmol/L 11/13/2023 2:00 AM EDT [facility] BUN 11 7 - 23 mg/dL 11/13/2023 2:00 AM EDT [facility] Creatinine 0.73 0.60 - 1.30 mg/dL 11/13/2023 2:00 AM EDT [facility] Glucose 109(H) 65 - 99 mg/dL 11/13/2023 2:00 AM EDT [facility] Calcium 9.6 8.6 - 10.5 mg/dL 11/13/2023 2:00 AM EDT [facility] Anion Gap 12 5 - 15 11/13/2023 2:00 AM EDT [facility] eGFR >90 >=60 mL/min/1. 73m2 11/13/2023 2:00 AM EDT [facility] Comment:The estimated glomer ular filtration rate (eGFR) is calculated using a new formula developed by the NKF-ASN task force to eliminate race-based correction factors. The new formula uses serum/plasma creatinine, age, and gender to determine eGFR. A value below 60mls/min might indicate kidney disease and will be flagged. For additional information, see aRphael et al, Am J Kidney Dis. 2021;79(2):268- 288, A Unifying Approach for GFR estimation: Recommendations of the NKF-ASN Task Force on Reassessing the Inclusion of Race in Diagnosing Kidney Disease . Blood Structure of peripheral vein / Unknown Venipuncture / Unknown 11/13/2023 1:21 AM EDT 11/13/2023 1:27 AM EDT us Juan Matson MD LAB BLOOD ORDERABLES Final Result [facility] [address] [place] [address], from Last 3 Months or Most Recently Relevant to Health Maintenance Insurance HSNO/FREE CARE Care Teams Rotary Soil Stabilizer Operator Relationship Specialty Start Date End Date [facility] [address] [place] [address] PCP - General 08/21/23
--- OUTSIDE RECORDS SUMMARY | 2025-01-27 08:16 | XMS_ITS | Clinical Summary ---
Author Organization [facility] Address [address] [place] [address] Phone Care Team Providers Care Mail Room Clerk Name Role Phone Haydee Fraga MD Unavailable [phone] Encounters Date Type Department Care Team Description 12/01/2024 8:30 AM EDT - 12/01/2024 11:59 PM EDT Hospital Encounter Department of Radiology [address] [place] [address] Luz Maria Ovalle NP Fatty liver disease, [...] 12/01/2024 1:51 PM us Luz Maria Ovalle SUPPLY ROOM CLERK IMG US ORDERABLES Final Resu lt from Last 3 Months Care Teams Mail Room Clerk Relationship Specialty Start Date End Date Haydee Fraga MD [address] [place] [id number] PCP - Insurance 11/30/24
--- NOTE | 2025-01-27 10:42 | PM.DS ---
DS: Providers Provider Date of Service: 01/28/25 Date of admission: 01/27/25 07:45 Date of discharge: 01/28/25 Primary care physician: Unknown Physician DS: Diagnosis Discharge Diagnosis (1) Morbid obesity: Status: Acute (2) Hypertension: Status: Acute (3) DJD (degenerative joint disease): Status: Acute (4) Steatosis, liver: Status: Acute (5) Liver fibrosis: Status: Acute (6) Esophagitis: Status: Acute (7) Congenital intra-abdominal adhesions: Status: Acute (8) S/P laparoscopic sleeve gastrectomy: Status: Acute DS: Summary Hospital Course Hospital Course: ADMITTING DIAGNOSIS: morbid obesity, liver fibrosis, DJD, HTN DISCHARGE DIAGNOSIS: same, s/p laparoscopic sleeve gastrectomy and gastropexy PAST SURGICAL HISTORY:? none PROCEDURE: upper endoscopy, laparoscopic sleeve gastrectomy and gastropexy DISCHARGE SUMMARY: History of Present Illness: The patient is a?39 year-old man with a BMI of?43.4 kg/m2 and associated co-morbidities as described above. The patient had extensive work-up, lost?37.2 lbs preoperatively and was electively scheduled for laparoscopic, possible open sleeve gastrectomy and gastropexy. Risks and complications of the surgery were discussed with the patient in advance, particularly the possibility of , pulmonary embolism, anastomotic leak, bleeding, bowel injury, GERD, cardiac, renal or pulmonary complications. The patient understood all the risks and was in agreement with the surgical plan. Hospital Course: The patient underwent an uneventful laparoscopic sleeve gastrectomy with gastropexy on the day of admission. Postoperatively, the patient was transferred to the surgical floor. The patient received IV acetaminophen and IV Dilaudid for pain control. Patient was started on bariatric phase 1 diet POD #0. On postoperative day one, the patient was feeling well without nausea, vomiting, fevers, or tachycardia. The patient had some mild incisional pain and the abdomen was soft.? ? On the morning of postoperative day one, the patient was continued on 1 ounce of water or ice every half hour. During the day, the patient did fairly well, having some incisional pain, but able to ambulate adequately and to tolerate liquids well. Since the patient is doing well, we decided that the patient was ready to be discharged. The patient was given instructions to follow-up in office next week and to call the office for any fever over 101, persistent abdominal pain, nausea, vomiting, GERD, symptoms of DVT such as calf tenderness, or leg swelling, or pulmonary embolism such as chest pain or shortness of breath.? The patient was also instructed to drink 40-60 ounces of liquids per day using the 1-ounce cups. The patient had been given prescriptions for Tylenol for pain, Zofran prn for nausea, and pantoprazole and carafate previously. The patient was encouraged to ambulate and use the incentive spirometer. The patient was allowed to shower, but no baths, and encouraged to stay active at home. All of these instructions were given to the patient personally. All questions were answered and the patient understood all instructions, the instructions were also given to the patient in print. Time Attestation Discharge Coordination Time (in mins): 30 Quality: Safe Use of Opioids Does Pt have an Active Cancer Diagnosis on the Problem List?: No Quality: Stroke Does the patient have a stroke diagnosis?: No Physical Exam Vital Signs: Vital Signs: Last Vital Signs Temp 98.7 F 01/27/25 10:20 Pulse 91 01/27/25 10:30 Resp 15 01/27/25 10:30 BP 129/69 01/27/25 10:30 Pulse Ox 97 01/27/25 10:30 O2 Del Method Nasal Cannula 01/27/25 10:30 O2 Flow Rate 2 01/27/25 10:30 BMI result Body Mass Index 43.4 DS: Data Data Completed and Pending Pending studies at discharge: Pending at discharge 01/27/25 09:34 Surgical [PTH] Routine Discharge Plan Discharge Anticipated Discharge Date/Time: 01/28/25 10:00 Patient Disposition: Home, Self-Care Discharge Diagnosis: s/p laparoscopic sleeve gastrectomy with gastropexy Referrals: Physician,Unknown J [Primary Care Provider, Medical] - 1 Week Discharge Medications: Held irbesartan 300 mg tablet 300 mg PO DAILY Hold Instructions: Resume on 01/29/25. Check your blood pressure every morning as soon as you wake up and send it to Dr. Vences. Do no take the blood pressure medication if the blood pressure is below 120/70. Wait every day to hear back from Dr. Vences before you take the medication. Discontinued cholecalciferol (vitamin D3) 125 mcg (5,000 unit) capsule 125 mcg PO DAILY Qty: 90 0RF vitamin A palmitate 3,000 mcg (10,000 unit) capsule 3,000 mcg PO DAILY Qty: 90 0RF No Action pantoprazole 40 mg tablet,delayed release (DR/EC) 40 mg PO DAILY Discharge Orders: Discharge Order (Routine); Ordered 01/28/25 Ordered By: Papi Vences Activity on Discharge: No heavy lifting Stand Alone Forms: Patient Portal Discharge page Print Language: Turkmen Care Plan Goals: weight loss Health Concerns: morbid obesity Plan of Treatment: No tub baths, sex or returning to work until discussed at first post op appointment. No alcohol, tobacco or illegal drug use. Continue to use incentive spirometer hourly while awake. Walk in home for 5- 10 minutes every 2 hours during the first week. Wear abdominal binder with activity. Follow all meal plan instructions from your bariatric surgeon. Review bariatric handbook and call with any questions. Discharge Instructions 1. Please call your doctor or come back to the emergency room should any new symptoms arise. 2. Activity: abstain from alcohol,? limited stair climbing, no bending, no driving, no exercise, no illicit substances, no lifting, no sex, no tub bath, no work. 4. Diet: follow your bariatric surgeon's recommendations for advancing diet. 5. Dressing Change/Wound Care: Your incisions are covered with waterproof dressings. You can shower with these and pat dry. Do not rub over dressings or incisions. If the area is tender, you may apply an ice pack for short intervals (no more than 20 minutes on, followed by at least 20 minutes off). Do not apply heat. Do not use creams, lotions, or topical antibiotics unless instructed to do so by your surgeon. 6. Call your doctor if: - Your temperature exceeds 101.5 F - You experience excessive pain or swelling - You have an unexpected reaction to medication - You have excessive bleeding - You experience continued vomiting/nausea - Your incision begins to separate - Your incision shows signs of infection such as increased redness, swelling, excessive pain, heat, or drainage (light blood or clear fluid is normal) General instructions: No lifting greater than 10 lbs for the next 6 weeks. [address] driving within 24 hours of taking narcotic pain medications. If you do not move your bowels in the next 2 days, please take milk of magnesia over the counter. Please follow the post op diet and do not advance your diet until instructed by your surgeon or until you are seen in the office in about 1 week. Please walk around your home every hour or two to prevent blood clots from forming in your legs. You do not need to wake from sleeping to walk. Please sleep in a bed or couch to prevent kinking at the hips and knees. Please take your incentive spirometer (your lung water plant operator) home with you and use it for the next few days to prevent pneumonias. You may shower; no hot tubs, baths or swimming pools. Please make sure you are consuming 40-60 ounces of total fluids per day. Avoid all carbonation. Please call the office with any questions or concerns such as increasing abdominal pain, fever, chills, shortness of breath, chest pain, leg pain or swelling, or redness or drainage from your incisions. Do not hesitate to contact the office with any questions at . The patient's medical history has been reviewed and they are considered low risk for post op DVT and therefore DVT prophylaxis is not considered necessary. Travel after surgery was reviewed. The patient has not disclosed any travel plans during the first 30 days after surgery and they have been advised that within the first 30 days after surgery any bus, plane, train or car travel over 2 hours in duration is contraindicated due to the possibility of developing blood clots from immobility. Any travel, needs to include periods of ambulation of 10 minutes in duration every 2 hours.? The patient was instructed to discuss any plans for travel during this period with their bariatric surgeon. Assessment: s/p laparoscopic sleeve gastrectomy with gastropexy Discharge Date/Time: 01/28/25 09:01
[2025-01-27 11:44] LABS: Hematocrit 45.6 % (42.0-52.0); Hemoglobin 14.7 g/dl (14.0-18.0)
[2025-01-27 11:52] LABS: Anion Gap 11 (12-20); Blood Urea Nitrogen 14 mg/dL (9-16); Calcium 8.6 mg/dL (8.4-10.2); Carbon Dioxide 25 mmol/L (22-29); Chloride 106 mmol/L (96-108); Creatinine Clr Calc Pharmacy 189.8; Estimated Glomerular Filt Rate > 60; Potassium 4.1 mmol/L (3.3-5.1); Sodium 138 mmol/L (135-145)
[2025-01-27] MEDS: 0.9 % Sodium Chloride Flush 3 ML SYRINGE IVFLUSH ×2 (13:13→20:28)
--- NOTE | 2025-01-27 13:30 | PHA.MEDREC ---
Addendum entered by Gabi Lai RPh 01/27/25 13:42: reviewed by [facility] Original Note: Pharmacy Consult ? Medication Reconciliation Pharmacy reviewed med rec done by nursing. Spoke with pt, utilizing foreign language interpreter, and he confirmed his medications. Pt no longer taking Baby Aspirin; I took that off the med rec, pt to start Pantoprazole, Ondansetron when they get home from surgery and pt no longer taking Miralax and states that was only to be taken before the surgery.
[2025-01-28 04:00] VITALS: BP 145/86; PULSE 91; RESP 18; TEMP 36.8; O2SAT 94
[2025-01-28] MEDS: Lactated Ringers 1,000 ML 100 ML IVCONT (06:07)
[2025-01-28 06:25] LABS: MANUAL DIFF FLAG NO
[2025-01-28 06:40] LABS: Hematocrit 45.9 % (42.0-52.0); Hemoglobin 15.2 g/dl (14.0-18.0); Imm Gran Abs Auto 0.04 X10*3/uL (0.00-0.03); Imm Gran Pct Auto 0.3 % (0.0-0.4); Lymphocytes Absolute Auto 1.2 X10*3/uL (1.2-4.9); Mean Corpuscular HGB Conc 33.1 g/dl (31.0-36.0); Mean Corpuscular Hemoglobin 28.3 pg (27.0-33.0); Mean Corpuscular Volume 85.3 fL (80.0-98.0); NRBC Abs Auto 0.000 X10*3/uL (0.0-0.012); NRBC Pct Auto 0.0 /100WBC (0.0-0.2); Platelet Count 314 X10*3/uL (160-400); Red Blood Count 5.38 X10*6/uL (4.60-5.80); White Blood Count 11.6 X10*3/uL (4.8-10.8)
[2025-01-28 06:51] LABS: Anion Gap 12 (12-20); Blood Urea Nitrogen 9 mg/dL (9-16); Calcium 9.1 mg/dL (8.4-10.2); Carbon Dioxide 27 mmol/L (22-29); Chloride 105 mmol/L (96-108); Creatinine Clr Calc Pharmacy 208.8; Estimated Glomerular Filt Rate > 60; Potassium 4.7 mmol/L (3.3-5.1); Sodium 139 mmol/L (135-145)
[2025-01-28 08:00] VITALS: BP 148/89; PULSE 86; RESP 18; TEMP 36.6; O2SAT 97
--- NOTE | 2025-01-28 08:14 | HO.POSTANES ---
Post Anesthesia Evaluation Post Anesthesia Evaluation Date of Service: 01/28/25 Vital Signs: Vital Signs Temp Pulse Resp BP Pulse Ox O2 Del Method 01/28/25 04:00 98.2 F 91 18 145/86 H 94 Room Air 01/27/25 23:41 98.3 F 98 18 140/84 H 93 Room Air 01/27/25 20:45 98.1 F 106 H 19 137/90 H 95 Room Air Anesthesia: General Mental Status: Awake Pain Control: Satisfactory Nausea/Vomiting: None Hydration: Adequate Anesthesia-Related Issues: No Anes. Related Issues
--- NOTE | 2025-01-28 09:16 | MHC.CM.PN ---
Patient dc'd home self care via private transport prior to CM assessment.
== END 2025-01-28 09:01 | disposition home or self-care (01) | DRG 403 ==
LOC: HO.SSSA 08:05 → HO.S3 10:20
PROVIDERS: Physician Assistant Surgical; Admitting Provider Surgery; Visit Provider Surgery
PROC: 0DB64Z3 Excision of Stomach, Percutaneous Endoscopic Approach, Vertical (ICD-10-PCS; CPT 43845; principal; 2025-01-27 07:30)
DX: E66.01 Morbid (severe) obesity due to excess calories (principal); K74.00 Hepatic fibrosis, unspecified; Q43.3 Congenital malformations of intestinal fixation; I10 Essential (primary) hypertension; K75.81 Nonalcoholic steatohepatitis (NASH); K20.90 Esophagitis, unspecified without bleeding; Z68.41 Body mass index [BMI] 40.0-44.9, adult; Z87.891 Personal history of nicotine dependence; Z79.899 Other long term (current) drug therapy
CPT/HCPCS: 36415; 80048; 85014; 85018; 85025; 86850; 86900; 86901; 88304; 88307; 88342; A4649; C9145; J0131; J0360; J0690; J1100; J1171; J1308; J2003; J2250; J2371; J2405; J2704; J2795; J3010; J7120

== ENCOUNTER → 2025-01-27 07:45 | Outpatient (BNV) | payer OTHER, SELFPAY | PROVIDERS: Admitting Provider Surgery; Visit Provider Surgery | DX: E66.01 Morbid (severe) obesity due to excess calories (principal); I10 Essential (primary) hypertension; M19.90 Unspecified osteoarthritis, unspecified site; K76.0 Fatty (change of) liver, not elsewhere classified; K74.00 Hepatic fibrosis, unspecified; K20.90 Esophagitis, unspecified without bleeding; Q43.3 Congenital malformations of intestinal fixation; Z98.84 Bariatric surgery status | CPT/HCPCS: 43659; 43775; 99024 ==

== ENCOUNTER 2025-02-03 13:49 | Outpatient (AMB) | payer OTHER, SELFPAY ==
--- NOTE | 2025-02-03 13:53 | A.OFFVIS_ITS ---
VS Expanded 02/03/25 14:11 BP 148/82 H Blood Pressure Location Rt brachial Blood Pressure Position Sitting Pulse 84 Pulse Source Pulse Oximeter Temp 96.8 F Temperature Source Temporal Artery Scan Pulse Oximetry 98 Oxygen Delivery Method Room Air Height 5 ft 8 in Weight 267 lb BMI 40.6 Body Fat % 40.5 Body Fat Mass 108.0 Fat Free Mass 159.0 Visceral Fat Rating 23.0 Body Water % 41.6 Body Water Mass 111.2 Muscle Mass/Score 151.0 Basal Metabolic Rate/Score 2,224 Intake Visit Reasons: OV PO LSG 01/27/25 *Okay per AK* Staff Pharmacist Required: Yes Staff Pharmacist Name: [place], [id number] Information Interpreted: clinical only Allergies No Known Allergies Allergy (Verified 02/03/25 14:12) Medication List - Last Reconciled 02/03/25 by KRISTI Mascorro irbesartan 300 mg PO DAILY Held on 01/28/25. Instructions: Resume on 01/29/25. Check your blood pressure every morning as soon as you wake up and send it to Dr. Vences. Do no take the blood pressure medication if the blood pressure is below 120/70. Wait every day to hear back from Dr. Vences before you take the medication. pantoprazole 40 mg PO DAILY HPI Comments Details: Pt is s/p LSG 01/27/2025, 1wk ago. No pain. No nausea. Tolerating 3 Premier shakes, mixed with almond milk- 4oz shake with 4oz almond milk. Hydration is adequate- 34-40oz. BP- taking half irbesartan each day based on parameters given by Dr. Anastasiya SHANKAR Medical History Liver fibrosis Steatosis, liver Pre-diabetes DJD (degenerative joint disease) Hypertension Morbid obesity Surgical History (Updated 02/03/25 @ 14:13 by Val Gerber CMA) S/P gastric sleeve procedure Family History Mother Diabetes Hypertension Colon cancer Father Hypertension Social History Household Members: Family Housing: Apartment Are you a primary physician primary care sports medicine to a significant other at home: No Do you presently have visiting nurse or other home services: No Alcohol intake: current Alcohol intake frequency: holidays/special occasions only Patient Tobacco Use Status: Former Tobacco user Tobacco use type: Cigarette Cigarettes Per Day: 2 Physical Exam Vital Signs: Last Vital Signs Temp 96.8 F 02/03/25 14:11 Pulse 84 02/03/25 14:11 BP 148/82 H 02/03/25 14:11 Pulse Ox 98 02/03/25 14:11 Oxygen Delivery Method Room Air 02/03/25 14:11 BMI result Body Mass Index 40.6 Const General: cooperative, comfortable and no acute distress Orientation/consciousness: patient oriented x3 GI Other: soft, nontender, nondistended, steri-strips c/d/i Neuro General: patient oriented x3 Assessment & Plan Assessment & Plan (1) Morbid obesity: Code(s): E66.01 - Morbid (severe) obesity due to excess calories Category: Medical (2) S/P laparoscopic sleeve gastrectomy: Code(s): Z98.84 - Bariatric surgery status Category: Surgical Plan May shower tomorrow but no bath or submersion of abdomen in water. May start exercise tomorrow.? No abdominal exercises x 6 weeks. Abdominal binder for the next 2 weeks with activity or exercise. Continue meal plan per Dr Lamas until next f/u in 5 weeks. Reviewed pantoprazole dosing. Pt reports he was unable to obtain carafate. Reminded of the pace of drinking 2 mL/min or 1oz per 15 min. Continue to dose BP med per parameters given by Dr. Lamas. Will be emailed link for post op video for review. He was interested in trying protein drinks of a different flavor so I gave him info on Isopure unflavored. Can start MVI at 2w postop.
[2025-02-03 14:11] VITALS: BP 148/82; PULSE 84; TEMP 36; O2SAT 98; BMI 40.6
--- OUTSIDE RECORDS SUMMARY | 2025-02-03 16:50 | XMS_ITS | Clinical Summary ---
Author Organization [facility] Address [address] [place] [address] Care Team Providers Care Assistant Customer Service Manager Name Role Phone [facility], John trujillo Care Provider Allergies No [...] (2 - Td or Tdap) 02/02/2034 02/03/2024 Diabetes Screening Discontinued 11/13/2023 Pneumococcal Vaccine: Pediatric (0-5 Years) and At-Risk Patients (6-50 Years) Aged Out No longer eligible b ased on patient's age to complete this topic Procedures * Due to [facility] law, this organization might not be sharing negative HIV tests. Procedure Name Priority Date/Time Associated Diagnosis Comments BASIC METABOLIC PANEL STAT 11/13/2023 1:21 AM EDT from Last 3 Months or Most Recently Relevant to Health Maintenance Results * Due to [place] law, this organization might not be sharing negative HIV tests. * (ABNORMAL) BMP - Basic Metabolic Panel (11/13/2023 1:21 AM EDT) NA 141 135 - 145 mmol/L 11/13/2023 2:00 AM EDT [facility] K 4.5 3.5 - 5.3 mmol/L 11/13/2023 2:00 AM EDT [facility] Cl 105 98 - 107 mmol/L 11/13/2023 2:00 AM EDT [facility] CO2 24 24 - 32 mmol/L 11/13/2023 2:00 AM EDT [facility] BUN 11 7 - 23 mg/dL 11/13/2023 2:00 AM EDT [facility] Creatinine 0.73 0.60 - 1.30 mg/dL 11/13/2023 2:00 AM EDT [facility] Glucose 109(H) 65 - 99 mg/dL 11/13/2023 2:00 AM EDT [facility] Calcium 9.6 8.6 - 10.5 mg/dL 11/13/2023 2:00 AM EDT [facility] Anion Gap 12 5 - 15 11/13/2023 2:00 AM EDT [facility] eGFR >90 >=60 mL/min/1. 73m2 11/13/2023 2:00 AM EDT [facility] Comment:The estimated glomer ular filtration rate (eGFR) is calculated using a new formula developed by the NKF-ASN task force to eliminate race-based correction factors. The new formula uses serum/plasma creatinine, age, and gender to determine eGFR. A value below 60mls/min might indicate kidney disease and will be flagged. For additional information, see Ijeoma et al, Am J Kidney Dis. 2021;79(2):268- 288, A Unifying Approach for GFR estimation: Recommendations of the NKF-ASN Task Force on Reassessing the Inclusion of Race in Diagnosing Kidney Disease . Blood Structure of peripheral vein / Unknown Venipuncture / Unknown 11/13/2023 1:21 AM EDT 11/13/2023 1:27 AM EDT us Juan Matson MD LAB BLOOD ORDERABLES Final Result [facility] [address] [place] [address], [place] from Last 3 Months or Most Recently Relevant to Health Maintenance Insurance HSNO/FREE CARE Care Teams Assistant Customer Service Manager Relationship Specialty Start Date End Date [facility], John Marcano [address] [place] [address] PCP - General 08/21/23
--- OUTSIDE RECORDS SUMMARY | 2025-02-03 16:50 | XMS_ITS | Clinical Summary ---
Author Organization [facility] Address [address] [place] [address] Phone Care Team Providers Care Art Manager Name Role Phone Haydee Fraga MD Unavailable [phone] Encounters Date Type Department Care Team Description 12/01/2024 8:30 AM EDT - 12/01/2024 11:59 PM EDT Hospital Encounter Department of Radiology [address] [facility] [place] [address] Luz Maria Ovalle NP Fatty liver disease, [...] 12/01/2024 1:51 PM us Luz Maria Ovalle ASSESSMENT DIRECTOR IMG US ORDERABLES Final Resu lt from Last 3 Months Care Teams Art Manager Relationship Specialty Start Date End Date Haydee Fraga MD [address] [place] [id number] PCP - Insurance 11/30/24
--- OUTSIDE RECORDS SUMMARY | 2025-02-03 16:51 | XMS_ITS | Encounter Summary ---
Author Organization [facility] Address [address] [place] [address] Care Team Providers Care Expansion Joint Builder Name Role Phone [facility], John Valadez ronnie Care Provider Reason for Referral * Diagnostic Imaging (Routine) - Closed Specialty Diagnoses / Procedures Referred By Brandon brizuela Referred To Contact Diagnoses Elevated liver enzymes Procedures US Limited Abdomen Single Organ US Abdomen Complete, Doppler Lmtd Matthew Walker MD Phone: tel: fax: Referral ID Status Reason Start Date Expiration Date Visits Re quested Visits Authorized [id number] Closed 04/01/2023 09/30/2024 1 1 Encounter Details Date Type Department Care Team (Late st Contact Info) Description 04/01/2023 Community Orders [facility] EpicCare Link [address] [place] [address] Matthew Walker MD [address] [place] [address] Elevated liver enzymes (Primary Dx) Social History [...] of this encounter Results * Due to [place] state law, this organization might not be [...] to obtain the completed interpretation. Workstation ID: [id number] Narrative 11/01/2023 1:27 AM EDT EXAMINATION: Limited right upper quadrant ultrasound with color Doppler. INDICATION: Abnormal liver enzymes TECHNIQUE: Real-time sonographic evaluation of the right upper quadrant with color Doppler evaluation is performed and sales representative leather goods static images and multiple cine captures are [...] caliber intrahepatic segment, patent Resulting Agency Comment [id number] Procedure Note Sudha, Ivory Hernandez MD - 11/01/2023 EXAMINATION: Limited right upper quadrant ultrasound with color Doppler. INDICATION: Abnormal liver enzymes TECHNIQUE: Real-time sonographic evaluation of the right upper quadrantwith color Doppler evaluation is performed and sales representative leather goods staticimages and multiple cine captures are submitted. [...] possible to obtain thecompleted interpretation. Workstation ID: [id number] us Matthew Cheema MD IMG US PROCEDURES [...] documented as of this encounter Care Teams Expansion Joint Builder Relationship Specialty Start Date End [facility] [address] [place] [address] PCP - General 08/21/23 documented as of this encounter
--- OUTSIDE RECORDS SUMMARY | 2025-02-03 16:51 | XMS_ITS | Encounter Summary ---
Author Organization [facility] Address [address] [place] [address] Care Team Providers Care Classifier Name Role [facility] Encounter Details Date Type Department Care Team (Late st Contact Info) Description 08/21/2023 Community Orders [facility] EpicCare Link [address] [place] [address] Kyleigh Donis MD [address] [place] [address] Symptomatic varicose veins of both lower extremities [...] documented as of this encounter Care Teams Classifier Relationship Specialty Start Date End Date [facility] [address] [place] [address] PCP - General 08/21/23 documented as of this encounter
== END 2025-02-03 14:46 | disposition home or self-care (01) ==
LOC: HO.HBS 13:50
PROVIDERS: Visit Provider Physician Assistant Surgical
DX: E66.01 Morbid (severe) obesity due to excess calories (principal); Z68.41 Body mass index [BMI] 40.0-44.9, adult; Z90.3 Acquired absence of stomach [part of]; Z98.84 Bariatric surgery status
CPT/HCPCS: 99024

== ENCOUNTER → 2025-02-03 13:49 | Outpatient (BNVA) | payer OTHER, SELFPAY | PROVIDERS: Visit Provider Physician Assistant Surgical | DX: Z98.84 Bariatric surgery status (principal); E66.01 Morbid (severe) obesity due to excess calories | CPT/HCPCS: 99212 ==

== ENCOUNTER 2025-02-08 14:09 | Outpatient (AMB) | payer OTHER, SELFPAY ==
--- OUTSIDE RECORDS SUMMARY | 2024-12-23 04:00 | XMS_ITS | Continuity of Care Document ---
Author Organization [facility] Address [address] [place] [address] Phone Care Team Providers Care Emergency Service Worker Name Role Phone Tiffanie Cowan Unavailable Unavailable Procedures Procedure Date Duplex Scan-extrem Veins; Uni/ CT & [place] S ep Ultrason Guidan Needle Bx-rad- CT & [place] S ep Inj Sclerosing Solution; Sngl- CT & [place] S ep Duplex Scan-extrem Veins; Uni/ CT & [place] S ep Ultrason Guidan Needle Bx-rad- CT & MA S ep Inj Sclerosing Solution; Sngl- CT & MA S ep Duplex Scan-extrem Veins; Uni/ CT & [place] S ep Phleb Veins - Extrem - To 20- CT & MA Se p Ultrason Guidan Needle Bx-rad- CT & MA S ep Inj Sclerosing Solution; Sngl- CT & [place] S ep Duplex Scan-extrem Veins; Uni/ CT & [place] S ep Endovenous Rf, 1st Vein- CT & [place] 2024 Duplex Scan-extrem Veins; Uni/ CT & [place] S ep Endovenous Rf, 1st Vein- CT & MA 2024 Duplex Scan-extrem Veins; Uni/ CT & [place] S ep Ultrason Guidan Needle Bx-rad- CT & MA S ep Inj Sclerosing Solution; Sngl- CT & MA S Duplex Scan-extrem Veins; Uni/ CT & MA S Ultrason Guidan Needle Bx-rad- CT & MA A Inj Sclerosing Solution; Sngl- CT & MA A Duplex Scan-extrem Veins; Uni/ CT & [place] A Phleb Veins - Extrem - To 20- [...] Providers Copied on Encounter [facility] [place], [address] [place] [address] Dr Gonsalves [facility] [address], [id number], [place] tel:[phone] [facility] venous hypertension (idiopathic) with other complications of right lower extremity Sep- 5 Camryn Moreno. [address] [place] [address], [id number], [place]. tel:[phone] Referring Provider: Tiffanie Cowan, [address] [place] [address], [address] . tel:[phone] [facility] [place], [address] [place] [address] Dr Gonsalves [address] [address], [id number], [place] tel:[phone] [facility] Varicose veins of bilateral lower extremities with other complications Sep- 5 Camryn Moreno. [address] [place] [address], [id number], . tel:[phone] Referring Provider: Tiffanie Cowan, [address] [place] [address], [address] . tel:[phone] [facility] [place], [address] [place] [address] Dr Gonsalves [address] [address], [id number], [place] tel:[phone] [facility] [place] [facility] [place] Chronic venous hypertension (idiopathic) with other complications of right lower extremity Sep-1 5 Camryn Moreno. [address] [place] [address], [id number], . tel:[phone] Referring Provider: Tiffanie Cowan, [address] [place] [address], [address] . tel:[phone] [facility] [place], [address] [place] [address] Dr Gons[address]ves [address] [address], [id number], [place] tel:[phone] [facility] [place] [facility] [place] Varicose veins of bilateral lower extremities with other complications Sep-1 5 Camryn Moreno. [address] [place] [address], [id number], [place]. tel:[phone] Referring Provider: Tiffanie Cowan, [address] [place] [address], [address] . tel:[phone] [facility] [place], [address] [place] [address] Dr Gonsalves [address] [address], [id number], [place] tel:[phone] [facility] [place] [facility] [place] Chronic venous hypertension (idiopathic) with other complications of right lower extremity Sep-1 5 Camryn Moreno. [address] [place] [address], [id number], [place]. tel:[phone] Referring Provider: Tiffanie Cowan, [address] [place] [address], [address] . tel:[phone] [facility] [place], [address] [place] [address] Dr Gonsalves [address], [id number], [place] tel:[phone] [facility] - [facility] Varicose veins of bilateral lower extremities with other complications Sep- 5 Camryn Moreno. [address] [place] [address], [id number], [place]. tel:[phone] Referring Provider: Tiffanie Cowan, [address] [place] [address], [address] . tel:[phone] [facility] [place], [address] [place] [address] Dr Gonsalves [facility] [address], [id number], [place] tel:[phone] [facility] [place] [facility] [place] Chronic venous hypertension (idiopathic) with other complications of right lower extremity Sep-1 5 Camryn Moreno. [address] [place] [address], [id number], [place]. tel:[phone] Referring Provider: Tiffanie Cowan, [address] [place] [address], [address] . tel:[phone] [facility] [place], [address] [place] [address] Dr Gons[address]ves [address] [address], [id number], [place] tel:[phone] [facility] - [facility] Varicose veins of bilateral lower extremities with other complications Sep-0 5 Camryn Moreno. [address] [place] [address], [id number], [place]. tel:[phone] [facility] [place], [address] [place] [address] Dr Gonsalves [address] [address], [id number], [place] tel:[phone] [facility] - [facility] Chronic venous hypertension (idiopathic) with other complications of right lower extremity Sep-0 5 Camryn Moreno. [address] [place] [address], [id number], [place]. tel:[phone] Referring Provider: Tiffanie Cowan, [address] [place] [address], [address] . tel:[phone] [facility] [place], [address] [place] [address] Dr Gonsalves [facility] [place], [id number], [place] tel:[phone] [facility] [place] [facility] [place] Varicose veins of bilateral lower extremities with other complications Sep-0 - 5 Camryn Moreno. [address] [place] [address], [id number], [place]. tel:[phone] [facility] [place], [address] [place] [address] Dr Gonsalves [address] [address], [id number], [place] tel:[phone] [facility] [place] [facility] [place] Chronic venous hypertension (idiopathic) with other complications of left lower extremity Sep-0 5 Camryn Moreno. [address] [place] [address], [id number], [place]. tel:[phone] Referring Provider: Tiffanie Cowan, [address] [place] [address], [address] . tel:[phone] [facility] [place], [address] [place] [address] Dr Gonsalves [address] [address], [id number], [place] tel:[phone] [facility] [place] [facility] [place] Varicose veins of bilateral lower extremities with other complications Sep-0 - 5 Camryn Moreno. [address] [place] [address], [id number], [place]. tel:[phone] Referring Provider: Tiffanie Cowan, [address] [place] [address], [address] . tel:[phone] [facility], [address] [place] [address] [facility] [address] [address], [id number], [place] tel:[phone] [facility] [place] [facility] [place] Chronic venous hypertension (idiopathic) with other complications of left lower extremity Sep-0 5 Camryn Moreno. [address] [place] [address], [id number], [place]. tel:[phone] Referring Provider: Tiffanie Cowan, [address] [place] [address], [address] . tel:[phone] [facility], [address] [place] [address] Dr Gonsalves [facility] [address], [id number], [place] tel:[phone] [facility] Varicose veins of bilateral lower extremities with other complications 5 Camryn Moreno. [address] [place] [address], [id number], [place]. tel:[phone] Referring Provider: [facility], [address] [place] [address], [address]. tel:[phone] [facility], [address] [place] [address] Dr Gonsalves [facility] [address], [id number], [place] tel:[phone] [facility] Encounter for follow-up examination after completed treatment for conditions other than malignant neoplasmChronic venous hypertension (idiopathic) with other complications of left lower extremity 5 Camryn Moreno. [address] [place] [address], [id number], [place]. tel:[phone] Referring Provider: [facility], [address] [place] [address], [address]. tel:[phone] [facility], [address] [place] [address] Dr Gonsalves [address] [address], [id number], [place] tel:[phone] [facility] Varicose veins of bilateral lower extremities with other complications 5 Camryn Moreno. [address] [place] [address], [address], [id number], [place]. tel:[phone] Referring Provider: Tiffanie Cowan, [address] [place] [address], [address] . tel:[phone] [facility], [address] [place] [address] Dr Gonsalves [address], [id number], [place] tel:[phone] [facility] Encounter for follow-up examination after completed treatment for conditions other than malignant neChronic venous hypertension (idiopathic) with other complications of left lower extremity 5 Camryn Moreno. [address] [place] [address], [address], [id number], [place]. tel:[phone] Referring Provider: Tiffanie Cowan, [address] [place] [address], [address] . tel:[phone] [facility], [address] [place] [address] Dr Gonsalves [address] [address], [id number], tel:[phone] [facility] [place] [facility] [place] Varicose veins of bilateral lower extremities with other complications 5 Camryn Moreno. [address] [place] [address], [id number], [place]. tel:[phone] Offic Cons New/estab Mod 40 Mi- CT & [place] [facility], [address] [place] [address] Dr Gonsalves [address] [address], [id number], [place] tel:[phone] [facility] [place] [facility] [place] Varicose veins of bilateral lower extremities with other complications 5 Camryn Moreno. [address] [place] [address], [id number], [place]. tel:[phone] [facility], [address] [place] [address] Dr Gonsalves [address], [id number], [place] tel:[phone] [facility] - [facility] Chronic venous hypertension (idiopathic) with other complications of bilateral lower extremity 5 Camryn Moreno. [address] [place] [address], [id number], . tel:[phone] Referring Provider: Tiffanie Cowan, [address] [place] [address], [address] . tel:[phone] Family History Family Member Type Diagnosis Age At Onset No Information Payers Payer name Insurance type Covered alliance party ID Authorlogana nile(s) [facility] [id number] Social History Type Description Quantity Date Captured Comments Sex Male Smoking Status No Information Chief Complaint And Reason For Visit No Information Reason For Referral Reason For Referral No Information Plan Of Treatment Date Type Action Status Appointment Adarsh Mccullough BOOKED Appointment Adarsh Mccullough BOOKED History Of Present Illness Encounter Date Complaint History Of Prese nt Illness No Information Functional Status Date Functional Assessmen t No Information Instructions Date Instruction Additional Infor mation Pre and post instruc tions reviewed and provided Related to Varicose veins of bilateral lower extremities with other complications Patient education booklet given Related to Varicose veins of bilateral lower extremities with other complications Assessments Type Assessment Date No Information Patient Care Teams Name Effective Dates (start - stop) Status Members No Information
--- OUTSIDE RECORDS SUMMARY | 2025-01-06 10:54 | XMS_ITS | Continuity of Care Document ---
Author Organization [facility] Address [address] [place] [address] Phone Care Team Providers Care Oncology Rep Name Role Phone Janes Beal Unavailable Unavailable Allergies, Adverse Reactions, Alerts Substance [...] Not Available - Active Procedures Procedure Date Other Managed Care Other Managed Care MED NUTRITION, INDIV, SUBSEQ MANUFACTURING LEAD OFFICE/OUTPATIENT VISIT, EST IMMUNIZATION ADMIN HEP B [...] Only No E/M Required OFFICE/OUTPATIENT VISIT, EST MANUFACTURING LEAD OFFICE/OUTPATIENT VISIT, EST ELECTROCARDIOGRAM, COMPLETE OFFICE/OUTPATIENT VISIT, EST OFFICE/OUTPATIENT VISIT, EST MEDICAL SERVICES AFTER HRS OFFICE/OUTPATIENT VISIT, NEW MEDICAL SERVICES AFTER [facility] Advance Directives Directive Yes / No Effective Date File Name No Information Encounters Encounter Description Practice Location Reason(s) For Visit Diagnoses Date Provider Providers Copied on Encounter [facility], [address] [facility], [place], [id number], tel:[phone] [facility] No Information 5 Pastora Marrero. [address] [place] [address], [address], [place]. tel:[phone] [facility], [address] [facility], [place], [place], [id number], tel:[phone] [facility] No Information Services [facility]. [address] [place] [address], [address]. tel:[phone] Consulting Provider: Khadijah Goodman. [facility], [address] [facility] [address], [place], [place], [id number], [place] tel:[phone] [facility] Pain in right knee Oct- 5 Pastora Marrero. [address] [place] [address], [address], [place]. tel:[phone] [facility], [address] [place] [address] 2,[address], [place], [place], [id number], [place] tel:[phone] [facility] No Information 5 Services [facility]. [address] [place], [address]. tel:[phone] Consulting Provider: Khadijah Goodman. [facility], [address] [place] [address] 2,[address], [place], [place], [id number], [place] tel:[phone] [facility] obesity (chief complaint)pr e dm (chief complaint) PrediabetesM orbid (severe) obesity due to excess caloriesFatt y liver disease, nonalcoholic Body mass index (BMI) 45.0-49.9, adult 5 Jordy Mahmood. [address] [place], [place], [id number]. 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 . Consulting Provider: Donn Pollock, [address] [place], [address]. tel:[phone] OFFICE/OUTPA TIENT VISIT, EST [facility], [address] [place] [address] 2,[address], [place], [place], [id number], [place] tel:[phone] [facility] NPP (chief complaint) Pain, joint, knee, rightUrine malodorSympt omatic varicose veins of both lower extremitiesO besity Class 3Fatty liver disease, nonalcoholic Morbid (severe) obesity due to excess caloriesBody mass index (BMI) 45.0-49.9, adult 5 Pastora Marrero. [address] [place], [address], [place]. tel:[phone] [facility], [address] [place] [address] 2,[address], [place], [place], [id number], [place] tel:[phone] [facility] Fatty liver disease, nonalcoholic 5 Yamile Loera. [address] [place], [place], [id number], [place]. tel:[phone] PREV VISIT, EST, AGE 18-39 [facility], [address] [place] [address] 2,[address], [place], [place], [id number], [place] tel:[phone] [facility] APE (chief complaint) Encounter for general adult medical examination without abnormal findingsEsse ntial (primary) hypertension PrediabetesF atty liver disease, nonalcoholic Symptomatic varicose veins of both lower extremitiesR outine screening for STI (sexually transmitted infection)Ob esity Class 3Body mass index (BMI) 45.0-49.9, adultFormer smokerFamily hx of colon cancerEncoun ter for immunization 5 Yamile Loera. [address] [place], [place], [id number], [place]. tel:[phone] [facility], [address] [place] [address] 2,[address], [place], [place], [id number], [place] tel:[phone] [facility] Proc/trtmt not crd out d/t pt lv bef seen by [facility] 5 Jordy Mahmood. [address], [place], [id number]. tel:[phone] [facility], [address] [place] [address] 2,[address], [place], [place], [id number], [place] tel:[phone] [facility] Proc/trtmt not crd out d/t pt lv bef seen by [facility] 5 Ciara Mike. [address] [place], [place], [id number], [place]. tel:[phone] [facility], [address] [facility],[address], [place], [place], [id number], [place] tel:[phone] [facility] obesity (chief complaint) PrediabetesE ssential (primary) hypertension Fatty liver disease, nonalcoholic Obesity Class 3Body mass index (BMI) 40.0-44.9, adult 5 Jordy Mahmood. [address], [place], [id number]. tel:[phone] [facility], [address] [place] [address] [facility],[address], [place], [place], [id number], [place] tel:[phone] [facility] hypertension (chief complaint) Essential (primary) hypertension PrediabetesF atty liver disease, nonalcoholic Obesity Class 3Body mass index (BMI) 40.0-44.9, adult 4 Jordy Mahmood. [address], [place], [id number]. tel:[phone] OFFICE/OUTPA TIENT VISIT, EST [facility], [address] [facility],[address], [place], [place], [id number], [place] tel:[phone] [facility] f/u meds (chief complaint) Obesity Class 3Essential (primary) hypertension PrediabetesB thomas mass index (BMI) 40.0-44.9, adult 4 Papo Quinones. [address] [place], [place], [id number], [place]. tel:[phone] [facility], [address] [place], [place] [address],[address], [place], [place], [id number], [place] tel:[phone] [facility] No Information 4 Jr Castro. [address], [place], [id number], [place]. tel:[phone] [facility], [address] [place], [place] [address]ild [facility],[address], [place], [place], [id number], [place] tel:[phone] [facility] pre dm (chief complaint) Pre-diabetes Essential (primary) hypertension Fatty liver disease, nonalcoholic Obesity Class 3Body mass index (BMI) 40.0-44.9, adult Sep-1 0- 4 Jordy Mahmood. [address] [place] [address], [id number]. tel:[phone] [facility], [address] [facility],[address], [place], [place], [id number], [place] tel:[phone] [facility] Med Education (chief complaint) Obesity Class 3Essential (primary) hypertension Sep-0 4 Sania Gómez. [address] [place] [address], [id number], [place]. tel:[phone] OFFICE/OUTPA TIENT VISIT, EST [facility], [address] [facility],[address], [place], [place], [id number], [place] tel:[phone] [facility] chronic conditions (chief complaint) Fatty liver disease, nonalcoholic Asymptomatic cholelithias isVitamin D deficiencyEs sential (primary) hypertension Pre-diabetes Obesity Class 3Body mass index (BMI) 40.0-44.9, adult Aug-2 4 Jenny Yang. [address] [place] [address], [id number], [place]. tel:[phone] [facility], [address] [facility],[address], [place], [place], [id number], [place] tel:[phone] [facility] Vaccine (chief complaint) Encounter for immunization 4 Dulce Espinosa. [address] [place] [address], [address], [place]. tel:[phone] [facility], [address] [facility],[address], [place], [place], [id number], [place] tel:[phone] [facility] Vaccine (chief complaint) Encounter for immunization 4 No Information OFFICE/OUTPA TIENT VISIT, [facility], [address] [facility] [address], [place], [place], [id number], [place] tel:[phone] [facility] BP Check (chief complaint) Essential (primary) hypertension 4 No Information [facility], [address] [facility] [address], [place], [place], [id number], [place] tel:[phone] [facility] No Information 4 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 . Consulting Provider: Edilberto Mccall, [address] [place], [address]. tel:[phone] OFFICE/OUTPA TIENT VISIT, [facility], [address] [facility] [address], [place], [place], [id number], [place] tel:[phone] [facility] BP Check (chief complaint) Essential (primary) hypertension 4 Dulce Espinosa. [address] [place], [address], [place]. 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 [address] [place] [address], [id number], [place]. tel:[phone] OFFICE/OUTPA TIENT VISIT, [facility], [address] [facility] [address], [place], [place], [id number], [place] tel:[phone] [facility] BP F/u (chief complaint) Essential (primary) hypertension Paresthesias Vitamin D deficiencyEl evated liver enzymes 3 Tio Alvarenga. [address] [place], [place], [id number], [place]. tel:[phone] OFFICE/OUTPA TIENT VISIT, [facility], [address], [place], [place], [id number], [place] tel:[phone] [facility] PI#[id number] (chief complaint)ch moo Bp (chief complaint) Essential (primary) hypertension Paresthesias 3 [facility] [address] [place], [place], [id number], [place]. tel:[phone] Family History Family Member Type Diagnosis Age [...] Record Payers Payer name Insurance type Covered republican ID Claribel dowd(sRohini Koo [facility]ly [facility] [id number] [facility] [id number] Health Safety Net [id number] [facility] [id number] Health Safety [facility] [id number] [facility] [id number] Health Safety [facility] [id number] Social History Type Description Quantity Date Captured Comments Alcohol Use Details Unknown Caffeine Use Details Unknown Tobacco Use Status Smoking Status No Information Sex Male Chief Complaint And Reason For Visit No Information Reason For Referral Reason For Referral No Information Plan Of Treatment Date Type Action Status Goal Document SOGI In formation. Due on due Goal LDL Cholesterol (Direct). Due on due Goal Diabetes screening. Due on due Goal Urinalysis. Due on due Goal APE. Due on due Goal Lipid panel. Due on due Goal Hepatitis C Screening. Due o n due Goal ECG due Goal Tdap due Goal Influenza vaccine. Due on No due Goal Unhealthy drug u se screening. Due on due Goal Unhealthy drug u [...] Due on due Goal ECG due Goal Influenza vaccine. Due on No due Goal Document SOGI In formation. Due on due Goal APE. Due on due Goal Hepatitis C Screening. Due o n due Goal Unhealthy drug u se screening. Due on due Goal Tdap due Goal Diabetes screening. Due on due Goal Influenza vaccine. Due on due Goal APE. Due on due Goal Hepatitis C Screening. Due o n due Goal Urinalysis. Due on due Goal Document SOGI In formation. Due on due Goal LDL Cholesterol (Direct). Due on due Goal Lipid panel. Due on due Goal ECG due Goal Unhealthy drug u se screening. Due on due Goal Diabetes screening. Due [...] Diabetes Screening. Due on A due Goal Tdap due Goal APE. Due on due Goal Diabetes Screening. Due on A due Goal Tdap due Goal Document SOGI In formation. Due on due Goal Influenza vaccine. Due on No due Goal Lipid panel. Due on due Goal Unhealthy drug u se screening. Due on due Goal Influenza vaccine. Due on No due Goal Diabetes Screening. Due on A due Goal Document SOGI In formation. Due [...] Goal Influenza vaccine. Due on due Goal Tdap. Due on [...] u se screening. Due on due Goal Td vaccine. Due [...] Goal Td vaccine. Due on due Goal Tdap. Due on due Goal Influenza vaccine. Due on due Goal Diabetes Screening. Due on A due Goal Unhealthy drug u se screening. [...] Goal Td vaccine. Due on due Goal Tdap. Due on due Goal Document SOGI In formation. Due on due Goal Td vaccine. Due on due Goal APE. Due on due Goal Lipid panel. Due on due Goal Unhealthy drug u se screening. Due on due Goal Influenza vaccine. Due on due Goal Diabetes Screening. Due on due Goal Td vaccine. Due [...] Goal Diabetes Screening. Due on due Goal Unhealthy drug u se screening. Due on due Goal Influenza vaccine. Due on Se due Goal APE. Due on due Goal Tdap. Due on due Goal Td vaccine. Due on due Goal Diabetes Screening. Due on A due Goal Tdap. Due on due Goal Document SOGI In formation. Due on due Goal Unhealthy drug u se screening. Due on due Goal APE. Due on due Goal Influenza vaccine. Due on Au due Goal Td vaccine. Due on due [...] Referral Ordered: Referrals: [facility]. Location: [facility]. Evaluate and treat Appointment date/timeframe: Urgent <3 Weeks ordered Referral Ordered: ECHO, TRANSTHORACIC W/DOPPLER, COMPLETE heart Appointment date/timeframe: 12/02/2023 ordered Referral Ordered: Referrals: Vascular Surgery. Evaluate and treat Appointment date/timeframe: Urgent <3 Weeks ordered Referral Ordered: US ABDOMEN LIMITED liver Appointment date/timeframe: 10/31/2023 ordered Referral Ordered: US ABDOMEN LIMITED Appointment date/timeframe: 04/22/2023 ordered Future Order: Lab Order HBsAg Jeremi gutiérrez ([id number]), Sent on: Sent Future Order: Lab Order HCV Anti body RFX to Quant PCR ([id number]), Sent on: Sent Future Order: Lab Order Hep A Ab , Total ([id number]), Sent on: Sent Future Order: Lab Order Hep B Co re Ab, Tot ([id number]), Sent on: Sent Future Order: Lab Order Hep Be Ag ([id number] ), Sent on: Sent Future Order: Lab Order Hep Be Ab ([id number] ), Sent on: Sent History Of Present Illness Encounter Date Complaint History Of Prese nt Illness obesity pre dm NPP 39yo M with PMH pre-DM, MASH, elevated LFTs, elevated BMI, presenting for NPP. Pt of mine, first visit with me. Lang: [place] Int #[id number] Concerns - R knee pain - varicose veins - would like dental visit Labs - A1C 6.4 - increasedBMI - prev trialed TLCs + GLP-1 - interested in bariatric consult, pending wt center referral R knee pain- ongoing for [...] HTN- denies prostate cancer SH: born in [facility]. Lives w/brothers. Sexually active w/ female partner, declines STI screen. Works in [employer].tobacco: 12 yrs - 31 yrs then resumed [...] yet seen new pcp. [facility] int# [id number] - bmi 44/wt 306lb. started wegovy ~2mo [...] of these. last bmp in 10/2023 with starafal Cr and Kdue flu, covid, tdap pre dm Med Education 38 y.o. male MHx HTN, pre-DM, fatty liver disease, and obesity presents in [facility] for Wegovy education with [facility]. Pre previous plan pt. to start taking Wegovy 0.25mg weekly. He reports feeling well today.Pt. confirms taking irbesartan 300mg, amlodipine 5mg, and Vit D. He is not sure what dose of medications he is taking, takes medication around 3-4PM daily, denies missing doses. He brings the Wegovy with him today. Was using Saxenda while in [place], he confirms understanding the SE.He sometimes checks [...] (comments) Co mments: This is a 38-year-old Kuwaiti-speaking male who was seen today for a [...] a vape occasionally.Notes from 07/2023 office vist: turkish speaking male, here from [facility] x 1 year now. See in [facility] U/C Oct and Nov 2022. dx HTN and he was taking Irbesartan 300mg daily, HCTZ 25mg daily, Spironolactone, 25mg Amlodipine 10mg daily- rx'd in [facility]. First seen in in 10/2022 at [facility].He reports he does drink alot of caffeine, drinks and smokes socially, does eat some salty foods.Labs 10/2022: He was found to have elevated LFTs. Admits to social drinking.He states he believes he had hepatitis infection as a child. He does have several tattoos, done in [place] at reputable place. He denies any blood [...] than 140/90. Was on 4 meds in [place]. Denies swelling with amlodipine.Fm hx: Mom- DM, [...] was 6.0 putting pt in pre-DM range. 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 See in [facility] U/C Oct and Nov 2022. dx HTN and he was taking Irbesartan 300mg daily, HCTZ 25mg daily, Spironolactone, 25mg Amlodipine 10mg daily- rx'd in [facility]. First seen in in 10/2022 at [facility].He reports he does drink alot of caffeine, drinks and smokes socially, does eat some salty foods.Labs 10/2022: He was found to have elevated LFTs. Admits to social drinking.He states he believes he had hepatitis infection as a child. He does have several tattoos, done in [place] at reputable place. He denies any blood [...] than 140/90. Was on 4 meds in [place]. Denies swelling with amlodipine.Fm hx: Mom- DM, HTN. 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 Reports- only social- weekend- M-F 2-3cig/daily, weekends d/t business 1 ppd/day- Friday/Friday. 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 He is [...] He does have several tattoos, done in [place] at reputable place. He denies any blood [...] Spironolactone, 25mg Amlodipine 10mg daily- rx'd in [facility]. He states he has recently lost ~ 30lbs.He reports he does drink alot of caffeine, drinks and smokes socially, does eat some salty foods. He also reports R hand fingers are tingling x 1 wk. This has been constant and has been painful/sensitive.He states his R upper arm is a little painful at times but he denies any trauma/injury/falls. PI#[id number] Functional Status Date Functional Assessmen t No [...]
--- NOTE | 2025-02-08 14:00 | MHC.WMTHER ---
Intake Intake Visit Reasons: TV PO LSG 01/27/25 Allergies No Known Allergies Allergy (Verified 02/03/25 14:12) PFSH Medical History Liver fibrosis Steatosis, liver Pre-diabetes DJD (degenerative joint disease) Hypertension Morbid obesity Surgical History (Updated 02/03/25 @ 14:13 by Val Gerber CMA) S/P gastric sleeve procedure Family History Mother Diabetes Hypertension Colon cancer Father Hypertension Social History Household Members: Family Housing: Apartment Are you a primary transition of care specialist to a significant other at home: No Do you presently have visiting nurse or other home services: No Alcohol intake: current Alcohol intake frequency: holidays/special occasions only Patient Tobacco Use Status: Former Tobacco user Tobacco use type: Cigarette Cigarettes Per Day: 2 Behavioral Health Assessment Weight Management Therapy Therapy Notes Details Subjective: The patient underwent weight loss surgery on 01/27/2025. Her weight on the day of surgery was 276 lbs; as of 02/03/2025, his weight is 265 lbs. PT denies any pain or complications during recovery and reports tolerating the liquid diet well, currently consuming three shakes and additional liquids daily. Mood is described as good. He has support from his siblings. The patient denies physical hunger but notes occasional thoughts about food, particularly missing salty and savory items. He returned to work last and has been able to maintain the nutritional regimen while working. Objective: The patient presented for a behavioral health post-operative follow-up. A guided emotional check-in was completed to assess her current functioning, recovery progress, mood, and emotional well-being. Psychoeducation was provided regarding the typical emotional and psychological adjustments following bariatric surgery. The session included discussion on differentiating between true hunger and food cravings or thoughts, exploring underlying causes, and developing strategies to address these experiences. Emphasis was placed on mindful awareness of both physical and emotional needs, and on maintaining adherence to the Weight Management Program (WMP) guidelines, including appropriate pacing of fluid intake and compliance with dietary and exercise recommendations. Long-term success strategies were reviewed, and the patient was provided with program resources and invited to join the clinic?s Facebook group for ongoing support and engagement. Assessment/Response: Mental status: WNL Risk reported/identified: None Assessment & Plan Assessment & Plan (1) Adjustment disorder: Code(s): F43.20 - Adjustment disorder, unspecified (2) Status post bariatric surgery: Code(s): Z98.84 - Bariatric surgery status Plan -No safety concerns or behavioral health issues were identified that require ongoing monitoring at this time. The patient is aware of available support and resources should future needs arise. -Advised the patient to contact her surgeon via text to obtain her individualized exercise plan. Telehealth Telehealth Telehealth Platform: [employer] Location of provider rendering services: practice address Location of patient: address on file Patient Identification confirmed using: Name, : Yes Telehealth method: video Patient verbally consented to treatment: Yes Patient verbally consented to billing insurance company: Yes Patient informed of any privacy concerns related to visit: Yes Minutes spent on Phone/Video with Pt.: 25 Coding [place] [id number] Tele Psytx 30 mins Patient Type Established Diagnoses Adjustment disorder F43.20 Status post bariatric surgery Z98.84 Time Spent (min) 25
--- OUTSIDE RECORDS SUMMARY | 2025-02-08 15:50 | XMS_ITS | Clinical Summary ---
Author Organization [facility] Address [address] [place] [address] Care Team Providers Care Pier Worker Name Role Phone [facility], John trujillo Care Provider Allergies No [...] complete this topic Procedures * Due to [facility] law, this organization might not be sharing negative HIV tests. Procedure Name Priority Date/Time Associated Diagnosis Comments BASIC METABOLIC PANEL STAT 11/13/2023 1:21 AM EDT from Last 3 Months or Most Recently Relevant to Health Maintenance Results * Due to [employer] law, this organization might not be sharing negative HIV tests. * (ABNORMAL) BMP - Basic Metabolic Panel (11/13/2023 1:21 AM EDT) NA 141 135 - 145 mmol/L 11/13/2023 2:00 AM EDT [facility] K 4.5 3.5 - 5.3 mmol/L 11/13/2023 2:00 AM EDT [facility] Cl 105 98 - 107 mmol/L 11/13/2023 2:00 AM EDT [facility] CO2 24 24 - 32 mmol/L 11/13/2023 2:00 AM EDT [facility] BUN 11 7 - 23 mg/dL 11/13/2023 2:00 AM EDT [facility] Creatinine 0.73 0.60 - 1.30 mg/dL 11/13/2023 2:00 AM EDT [facility] Glucose 109(H) 65 - 99 mg/dL 11/13/2023 2:00 AM EDT [facility] Calcium 9.6 8.6 - 10.5 mg/dL 11/13/2023 2:00 AM EDT [facility] Anion Gap 12 5 - 15 11/13/2023 2:00 AM EDT [facility] eGFR >90 >=60 mL/min/1. 73m2 11/13/2023 2:00 AM EDT [facility] Comment:The estimated glomer ular filtration [...] Matson MD LAB BLOOD ORDERABLES Final Result [facility] [address] [place] [address], [place] from Last 3 Months or Most Recently Relevant to Health Maintenance Insurance HSNO/FREE CARE Care Teams Pier Worker Relationship Specialty Start Date End Date [facility], John Marcano [address] [place] [address] PCP - General 08/21/23
--- OUTSIDE RECORDS SUMMARY | 2025-02-08 15:50 | XMS_ITS | Encounter Summary ---
Author Organization [facility] Address [address] [place] [address] Care Team Providers Care Assistant Produce Manager Name Role Phone [facility] Encounter Details Date Type Department Care Team (Late st Contact Info) Description 08/21/2023 Community Orders [facility] EpicCare Link [address] [place] [address] Kyleigh Donis MD [address] [place] [address] Symptomatic varicose veins of both lower extremities [...] documented as of this encounter Care Teams Assistant Produce Manager Relationship Specialty Start Date End Date [facility] [address] [place] [address] PCP - General 08/21/23 documented as of this encounter
--- OUTSIDE RECORDS SUMMARY | 2025-02-08 15:50 | XMS_ITS | Encounter Summary ---
Author Organization [facility] Address [address] [place] [address] Care Team Providers Care Student Finance Advisor Name Role Phone [facility], John Valadez ronnie Care Provider Reason for Referral * Diagnostic Imaging (Routine) - Closed Specialty Diagnoses / Procedures Referred By Brandon brizuela Referred To Contact Diagnoses Elevated liver enzymes Procedures US Limited Abdomen Single Organ US Abdomen Complete, Doppler Lmtd Matthew Walker MD Phone: tel: fax: Referral ID Status Reason Start Date Expiration Date Visits Re quested Visits Authorized [id number] Closed 04/01/2023 09/30/2024 1 1 Encounter Details Date Type Department Care Team (Late st Contact Info) Description 04/01/2023 Community Orders [facility] EpicCare Link [address] [place] [address] Matthew Walker MD [address] [place] [address] Elevated liver enzymes (Primary Dx) Social History [...] to obtain the completed interpretation. Workstation ID: [id number] Narrative 11/01/2023 1:27 AM EDT EXAMINATION: Limited right upper quadrant ultrasound with color Doppler. INDICATION: Abnormal liver enzymes TECHNIQUE: Real-time sonographic evaluation of the right upper quadrant with color Doppler evaluation is performed and union representative static images and multiple cine captures [...] caliber intrahepatic segment, patent Resulting Agency Comment [id number] Procedure Note Sudha, Ivory Hernandez MD - 11/01/2023 EXAMINATION: Limited right upper quadrant ultrasound with color Doppler. INDICATION: Abnormal liver enzymes TECHNIQUE: Real-time sonographic evaluation of the right upper quadrantwith color Doppler evaluation is performed and union representative staticimages and multiple cine captures are [...] possible to obtain thecompleted interpretation. Workstation ID: [id number] us Matthew Cheema MD IMG US PROCEDURES [...] documented as of this encounter Care Teams Student Finance Advisor Relationship Specialty Start Date End Date [facility] [address] [place] [address] PCP - General 08/21/23 documented as of this encounter
--- OUTSIDE RECORDS SUMMARY | 2025-02-08 15:50 | XMS_ITS | Clinical Summary ---
Author Organization [facility] Address [address] [place] [address] Phone Care Team Providers Care Baker Bench Name Role Phone Haydee Fraga MD Unavailable [phone] Encounters Date Type Department Care Team Description 12/01/2024 8:30 AM EDT - 12/01/2024 11:59 PM EDT Hospital Encounter Department of Radiology [address] [facility] [place] [address] Luz Maria Ovalle NP Fatty liver disease, [...] 12/01/2024 1:51 PM us Luz Maria Ovalle FWS FACULTY ASSISTANT IMG US ORDERABLES Final Resu lt from Last 3 Months Care Teams Baker Bench Relationship Specialty Start Date End Date Haydee Fraga MD [address] [place] [id number] PCP - Insurance 11/30/24
== END 2025-02-08 14:46 | disposition home or self-care (01) ==
LOC: HO.HBST 14:09
PROVIDERS: Visit Provider Counselor Mental Health
DX: F43.20 Adjustment disorder, unspecified (principal); Z98.84 Bariatric surgery status
CPT/HCPCS: 90832

== ENCOUNTER 2025-03-09 10:27 | Outpatient (AMB) | payer OTHER, SELFPAY ==
--- NOTE | 2025-03-09 10:14 | MHC.OFFVISWM ---
VS Expanded 03/09/25 10:29 Height 5 ft 8 in Weight 255 lb 2 oz BMI 38.8 Intake Visit Reasons: TV PO LSG 01/27/25 Burr Machine Operator Required: Yes Burr Machine Operator Services: Burr Machine Operator Present Burr Machine Operator Name: Jordan [id number] Information Interpreted: clinical only Allergies No Known Allergies Allergy (Verified 02/03/25 14:12) HPI Comments Details: 39 year old man s/p LSG on 01/27/2025. Presents via telemed for 6 week post op visit. Starting weight was 314 lbs. Operative weight was 276.8 lbs. Weight at last visit on 02/03/2025 was 267 lbs with a BMI of 40.6 Weight today is 255.2 lbs, representing a 58.8 lbs weight loss since start of the program 11/03/2024. BMI today of 38.8. No complaints of nausea, emesis, abdominal pain or reflux, or constipation. Still taking pantoprazole as prescribed. Sucralfate was not covered, and doctor aware he is not taking it. BP - taking 1/2 irbesartan each day based on parameters given by Dr. Lamas. Reports 120s-130s SBP. Compliant with meal plan. Tried multivitamins but vomited right away. Has been communicating with Dr. Lamas regarding this and trying different variations. Current meal plan: 2 full premier shakes 1 protein bar Dinner: 1 egg Hydration is adequate (water, Gatorade, propel) - 34-40oz Exercise routine: Gym 2-3x per week treadmill 25 mins then elliptical/bike 5-10 mins then another 10 mins on treadmill walking to work reports going over 2000 calories/week but does not always measure calories burned per workout or steps per day [facility] Medical History (Updated 02/11/25 @ 00:01 by Background Daemon) Liver fibrosis Steatosis, liver Pre-diabetes DJD (degenerative joint disease) Hypertension Morbid obesity Surgical History (Updated 02/11/25 @ 00:01 by Background Daemon) S/P gastric sleeve procedure Family History Mother Diabetes Hypertension Colon cancer Father Hypertension Social History Household Members: Family Housing: Apartment Are you a primary home health caregiver to a significant other at home: No Do you presently have visiting nurse or other home services: No Alcohol intake: current Alcohol intake frequency: holidays/special occasions only Patient Tobacco Use Status: Former Tobacco user Tobacco use type: Cigarette Cigarettes Per Day: 2 Telehealth Telehealth Telehealth Platform: Telephone Location of provider rendering services: practice address Location of patient: address on file Patient Identification confirmed using: Name, : Yes Telehealth method: voice only Patient verbally consented to treatment: Yes Patient verbally consented to billing insurance company: Yes Patient informed of any privacy concerns related to visit: Yes Minutes spent on Phone/Video with Pt.: 20 Assessment & Plan Assessment & Plan (1) S/P laparoscopic sleeve gastrectomy: Code(s): Z98.84 - Bariatric surgery status Category: Surgical Plan: Plan: - Cleared for all exercise. Continue exercise routine. Goal of burning 2000 calories/week - Continue meal plan per Dr. Lamas - Continue trying multivitamins to see what he tolerates, as we recommend a daily MVI. He has been communicating with Dr. Lamas regarding MVI. - Reviewed pantoprazole dosing, will finish in approx. 4-6 weeks Follow up: 6 weeks, for a 3 month post op visit
[2025-03-09 10:29] VITALS: BMI 38.8
== END 2025-03-09 10:52 | disposition home or self-care (01) ==
LOC: HO.HBS 10:27
PROVIDERS: Visit Provider Nurse Practitioner
DX: E66.812 Obesity, class 2 (principal); Z68.38 Body mass index [BMI] 38.0-38.9, adult; Z98.84 Bariatric surgery status
CPT/HCPCS: 99024

== ENCOUNTER → 2025-03-09 10:27 | Outpatient (BNVA) | payer OTHER, SELFPAY | PROVIDERS: Visit Provider Nurse Practitioner | DX: Z48.815 Encounter for surgical aftercare following surgery on the digestive system (principal); Z98.84 Bariatric surgery status; Z71.82 Exercise counseling | CPT/HCPCS: 99212 ==